=== PATIENT | male | born 1940 | race Caucasian/White ===

== ENCOUNTER 2020-01-07 17:06 | Inpatient (IN) | payer MEDICARE, OTHER ==
[2020-01-07] MEDS ORDERED: NALOXONE 0.4 MG/ML 1 ML VIAL IV PRN (17:12)
[2020-01-07] MEDS ORDERED: ACETAMINOPHEN TAB 325 MG TAB PO PRN (17:12)
--- NOTE | 2020-01-07 17:37 | ED ---
General Adult HPI - General Stated complaint: bradycardia Time Seen by Provider: 01/07/20 17:11 Source: patient, RN notes reviewed, old records reviewed - History of Present Illness Initial comments: 79-year-old male presenting as a transfer from [facility] with lightheadedness, bradycardia. Patient has history of atrial fibrillation currently on Coumadin and Toprol XL. Denies chest pain, denies palpitations. He has no reported vomiting or diarrhea. No fever. No pain complaints. Transferred for cardiology evaluation, telemetry. This was discussed with cardiology prior to transfer. Review of Systems ROS Statement: Those systems with pertinent positive or pertinent negative responses have been documented in the HPI. ROS Other: All systems not noted in ROS Statement are negative. General Exam General appearance: alert, in no apparent distress Head exam: Present: atraumatic, normocephalic Eye exam: Present: normal appearance, PERRL ENT exam: Present: normal exam Neck exam: Present: normal inspection. Absent: tenderness, meningismus Respiratory exam: Present: normal lung sounds bilaterally. Absent: respiratory distress Cardiovascular Exam: Present: normal rhythm, bradycardia GI/Abdominal exam: Present: soft. Absent: distended, tenderness, guarding Extremities exam: Present: normal inspection, normal capillary refill. Absent: pedal edema Neurological exam: Present: alert, oriented X3, CN II-XII intact. Absent: motor sensory deficit, reflexes normal Psychiatric exam: Present: normal affect, normal mood Skin exam: Present: warm, dry, intact. Absent: cyanosis, diaphoretic EKG Findings - EKG Comments: EKG Findings:: EKG: Atrial flutter, rate of 57, no ST segment elevation, QRS duration 94, QTC 358 4:1 conduction Medical Decision Making - Medical Decision Making 79-year-old male transferred for cardiology evaluation, symptomatic bradycardia, atrial flutter with slow ventricular response. EKG in the emergency department reveals atrial flutter with a 4-1 conduction, rate in the 50s. Blood pressure is stable. His electrolytes were obtained prior to transfer and these were noted to be normal. His initial troponin was negative. Laboratory testing will be repeated including all electrolytes, blood counts and troponin within the next several hours. He has been admitted to monitored bed, case discussed with the admitting physician and cardiology has been placed on consult. Critical Care Time Critical Care Time: Yes Disposition Clinical Impression: Symptomatic bradycardia, Atrial flutter Disposition: ADMITTED IP TO THIS HOSP Condition: Stable Is patient prescribed a controlled substance at d/c from ED?: No Referrals: Yuliya Ortiz DO [Primary Care Provider] - 1-2 days Decision to Admit Reason: Admit from EC Decision Date: 01/07/20 Decision Time: 17:37
[2020-01-07 20:56] LABS: Calcium 9.7 mg/dL (8.4-10.2); Potassium 4.6 mmol/L (3.5-5.1)
[2020-01-07 21:01] LABS: Basophils # (A) 0.1 k/uL (0-0.2); Basophils % (A) 1 %; Eosinophils # (A) 0.1 k/uL (0-0.7); Eosinophils % (A) 2 %; HCT 44.5 % (39.0-53.0); HGB 14.6 gm/dL (13.0-17.5); Lymphocytes # (A) 1.5 k/uL (1.0-4.8); Lymphocytes % (A) 24 %; MCH 30.4 pg (25.0-35.0); MCHC 32.9 g/dL (31.0-37.0); MCV 92.2 fL (80.0-100.0); Mean Platelet Volume 8.7; Monocytes # (A) 0.4 k/uL (0-1.0); Monocytes % (A) 6 %; Neutrophils % (A) 64 %; Platelet Count 203 k/uL (150-450); RBC 4.82 m/uL (4.30-5.90); RDW 13.1 % (11.5-15.5); WBC 6.2 k/uL (3.8-10.6)
[2020-01-07 21:15] LABS: INR 1.2 (<1.2); Prothrombin Time 12.2 sec (9.0-12.0)
[2020-01-07] MEDS ORDERED: WARFARIN 3 MG TAB PO ONE (21:45)
[2020-01-08 05:53] LABS: Basophils # (A) 0.1 k/uL (0-0.2); Basophils % (A) 1 %; Eosinophils # (A) 0.2 k/uL (0-0.7); Eosinophils % (A) 3 %; HCT 41.1 % (39.0-53.0); HGB 13.3 gm/dL (13.0-17.5); Lymphocytes % (A) 29 %; MCH 29.5 pg (25.0-35.0); MCHC 32.3 g/dL (31.0-37.0); MCV 91.5 fL (80.0-100.0); Mean Platelet Volume 9.1; Monocytes # (A) 0.5 k/uL (0-1.0); Monocytes % (A) 7 %; Neutrophils % (A) 58 %; Platelet Count 185 k/uL (150-450); RBC 4.49 m/uL (4.30-5.90); RDW 13.1 % (11.5-15.5); WBC 6.8 k/uL (3.8-10.6)
[2020-01-08 06:00] LABS: Magnesium 2.1 mg/dL (1.6-2.3)
[2020-01-08 06:02] LABS: Calcium 9.2 mg/dL (8.4-10.2); INR 1.3 (<1.2); Potassium 3.9 mmol/L (3.5-5.1); Prothrombin Time 12.8 sec (9.0-12.0)
[2020-01-08 08:47] VITALS: RESP 16
[2020-01-08] MEDS ORDERED: NITROGLYCERIN SL TABS 0.4 MG TAB SUBLINGUAL PRN (08:52)
[2020-01-08] MEDS ORDERED: FAMOTIDINE 20 MG TAB PO PRN (08:52)
[2020-01-08] MEDS ORDERED: CYCLOBENZAPRINE 5 MG TAB PO PRN (08:52)
--- NOTE | 2020-01-08 10:05 | P.HPIM ---
History of Present Illness 73-year-old male was sent in for [facility] as he presented with lightheadedness and bradycardia patient checks his pulse rate which was only in 30s at the time patient is on Toprol-XL patient. Patient does have persistent A. fib because of which patient was on Coumadin and metoprolol low-dose. Patient blood pressure apparently was extremely low as well. Patient EKG showed atrial flutter with heart rate in 50s. Patient is admitted for symptomatic bradycardia. Review of Systems REVIEW OF SYSTEMS: CONSTITUTIONAL: No fever, no malaise, no fatigue. HEENT: No recent visual problems or hearing problems. Denied any sore throat. CARDIOVASCULAR: No chest pain, orthopnea, PND, no palpitations, no syncope. PULMONARY: No shortness of breath, no cough, no hemoptysis. GASTROINTESTINAL: No diarrhea, no nausea, no vomiting, no abdominal pain. NEUROLOGICAL: No headaches, no weakness, no numbness. HEMATOLOGICAL: Denies any bleeding or petechiae. GENITOURINARY: Denies any burning micturition, frequency, or urgency. MUSCULOSKELETAL/RHEUMATOLOGICAL: Denies any joint pain, swelling, or any muscle pain. ENDOCRINE: Denies any polyuria or polydipsia. The rest of the 14-point review of systems is negative. Past Medical History Past Medical History: Atrial Fibrillation, Hyperlipidemia, Hypertension Additional Past Medical History / Comment(s): self caths History of Any Multi-Drug Resistant Organisms: None Reported Past Surgical History: Hernia Repair, Tonsillectomy Past Psychological History: No Psychological Hx Reported Smoking Status: Former smoker Past Alcohol Use History: None Reported Past Drug Use History: None Reported Medications and Allergies Home Medications Medication Instructions Recorded Confirmed Type Ascorbic Acid [Vitamin C] 500 mg PO DAILY 01/07/20 01/07/20 History Aspirin [Adult Low Dose Aspirin EC] 81 mg PO DAILY 01/07/20 01/07/20 History Candesartan Cilexetil [Atacand] 16 mg PO DAILY 01/07/20 01/07/20 History Cholecalciferol [Vitamin D3 (25 5,000 unit PO DAILY 01/07/20 01/07/20 History Mcg = 1000 Iu)] Cranberry Fruit Extract [Cranberry] 200 mg PO DAILY PRN 01/07/20 01/07/20 History Cyclobenzaprine [Flexeril] 5 mg PO DAILY PRN 01/07/20 01/07/20 History Ketorolac 0.5% Ophth Soln [Acular] 1 drops RIGHT EYE BID 01/07/20 01/07/20 History L.acidoph,Paracasei, B.lactis 1 cap PO DAILY 01/07/20 01/07/20 History [Probiotic] Loteprednol Etabonate [Inveltys] 1 drop RIGHT EYE BID 01/07/20 01/07/20 History Magnesium Gluconate [Magonate] 500 mg PO MOWEFR PRN 01/07/20 01/07/20 History Metoprolol Succinate [Toprol XL] 12.5 mg PO DAILY 01/07/20 01/07/20 History Multivitamins, Thera [Multivitamin 1 tab PO DAILY 01/07/20 01/07/20 History (formulary)] Nitrofurantoin Monohyd/M-Cryst 100 mg PO DAILY 01/07/20 01/07/20 History [Macrobid] Nitroglycerin Sl Tabs [Nitrostat] 0.4 mg SUBLINGUAL Q5M PRN 01/07/20 01/07/20 History Potassium Chloride [Klor-Con 10] 10 meq PO MOWEFR PRN 01/07/20 01/07/20 History Ranitidine HCl 150 mg PO DAILY PRN 01/07/20 01/07/20 History Rosuvastatin Calcium [Crestor] 40 mg PO DAILY 01/07/20 01/07/20 History Tobramycin 0.3% Ophth Soln [Tobrex 1 drop RIGHT EYE BID 01/07/20 01/07/20 History 0.3% Ophth Soln] Triamterene/Hydrochlorothiazid 1 cap PO MOFR PRN 01/07/20 01/07/20 History [Dyazide 37.5-25 Capsule] Ubidecarenone [Co Q-10] 100 mg PO DAILY 01/07/20 01/07/20 History Warfarin Sodium 4 mg PO SUMOTUTHSA 01/07/20 01/07/20 History Warfarin Sodium 6 mg PO WEFR 01/07/20 01/07/20 History Allergies Allergy/AdvReac Type Severity Reaction Status Date / Time ciprofloxacin [From Cipro] Allergy Unknown Verified 01/07/20 21:45 finasteride [From Proscar] Allergy Unknown Verified 01/07/20 21:45 lisinopril Allergy Unknown Verified 01/07/20 21:45 sulfamethoxazole Allergy Unknown Verified 01/07/20 21:45 [From Bactrim] trimethoprim [From Bactrim] Allergy Unknown Verified 01/07/20 21:45 Physical Exam Vitals: Vital Signs Temp Pulse Pulse Resp BP BP Pulse Ox 01/08/20 08:46 97.6 F 55 L 16 165/74 97 01/08/20 03:00 52 L 18 01/08/20 02:52 98 F 52 L 18 122/74 96 01/08/20 00:00 58 L 16 128/70 95 01/07/20 23:53 50 L 18 01/07/20 20:00 98.2 F 64 14 133/75 97 01/07/20 19:12 98.4 F 61 18 134/88 98 01/07/20 18:00 47 L 18 120/93 97 01/07/20 17:12 98.0 F 38 L 18 138/99 98 Intake and Output 01/07/20 01/08/20 01/08/20 22:59 06:59 14:59 Intake Total 240 Output Total 1300 Balance -1300 240 Intake: Oral 240 Output: Urine 1300 Other: Voiding Method Self-Catheterization Self-Catheterization Self-Catheterization # Voids 1 Weight 97.522 kg 96.2 kg PHYSICAL EXAMINATION: GENERAL: The patient is alert and oriented x3, not in any acute distress. Well developed, well nourished. HEENT: Pupils are round and equally reacting to light. EOMI. No scleral icterus. No conjunctival pallor. Normocephalic, atraumatic. No pharyngeal erythema. No thyromegaly. CARDIOVASCULAR: S1 and S2 present. No murmurs, rubs, or gallops. PULMONARY: Chest is clear to auscultation, no wheezing or crackles. ABDOMEN: Soft, nontender, nondistended, normoactive bowel sounds. No palpable organomegaly. MUSCULOSKELETAL: No joint swelling or deformity. EXTREMITIES: No cyanosis, clubbing, or pedal edema. NEUROLOGICAL: Gross neurological examination did not reveal any focal deficits. SKIN: No rashes. Results CBC & Chem 7: 01/08/20 05:36 01/08/20 05:36 Labs: Abnormal Lab Results - Last 24 Hours (Table) 09/03/1701/07/20 01/08/20 Range/Units 20:33 20:33 05:36 PT 12.2 H (9.0-12.0) sec INR 1.2 H (<1.2) BUN 23 H 21 H (9-20) mg/dL 01/08/20 Range/Units 05:36 PT 12.8 H (9.0-12.0) sec INR 1.3 H (<1.2) BUN (9-20) mg/dL Thrombosis Risk Factor Assmnt - Choose All That Apply Each Factor Represents 1 point: Swollen legs (current) Other Risk Factors: Yes Each Risk Factor Represents 3 Points: Age 75 years or older Other congenital or acquired thrombophilia - If yes, enter type in comment: No Thrombosis Risk Factor Assessment Total Risk Factor Score: 4 Thrombosis Risk Factor Assessment Level: Moderate Risk Assessment and Plan Plan: -Symptomatic bradycardia: She is presently atrial flutter with bradycardia Patient has history of atrial fibrillation and flutter anti-correlation was switched to Eliquis and patient is off Coumadin now was subtherapeutic on Coumadin cardiology will evaluate the patient and further management as per cardiology. Coding a beta brandy at this time. -Hypertension patient will be resumed on the angiotensin receptor brandy Hyperlipidemia. -Chronic low back pain
[2020-01-08] MEDS: LACTOBACILLUS ACIDOPH & BULGAR 1 EACH PACKET PO SCH (10:09)
[2020-01-08] MEDS: LOSARTAN 50 MG TAB PO SCH (10:09)
[2020-01-08] MEDS: ATORVASTATIN 80 MG TAB PO SCH (10:09)
[2020-01-08] MEDS: ASCORBIC ACID 500 MG TAB PO SCH (10:09)
[2020-01-08] MEDS: ASPIRIN 81 MG PO SCH (10:09)
[2020-01-08] MEDS: NON FORMULARY DRUG (Loteprednol Etabonate [Inveltys] 2.8 ML Drops.Susp) RIGHT EYE SCH (10:13)
[2020-01-08] MEDS: TRIAMTERENE-HCTZ 37.5-25MG 1 EACH CAP PO SCH (10:54)
[2020-01-08] MEDS: TOBRAMYCIN 0.3% OPHTH DROPS 5 ML BTL RIGHT EYE SCH (10:54)
[2020-01-08] MEDS: KETOROLAC 0.5% OPHTH DROPS 5 ML BTL RIGHT EYE SCH (10:54)
--- NOTE | 2020-01-08 11:34 | P.CRDCN ---
History of Present Illness History of present illness: This is Jaelyn Justice PA-C dictating a consult on this patient The patient was interviewed and examined by me as well as by Dr. Schwartz Case discussed with Dr. Schwartz and he agrees with the plan of care HPI Patient is a 79-year-old male with a history significant for paroxysmal atrial fibrillation, paroxysmal atrial flutter, obstructive sleep apnea, hypertension who was transferred from [facility] for cardiac evaluation. He follows with Dr. Schwartz. He is on low-dose metoprolol 12.5 mg daily for atrial fibrillation. He has been feeling fatigued and had an episode of presyncope at home and his urged him to go to the emergency department for evaluation. He did not pass out. He denies any chest pain or shortness of breath. He was found to be in atrial flutter with a rate of 38. His potassium was 4.3. He was transferred to [facility] for further evaluation. EKG here shows atrial flutter with rate 57. Upon arrival here his blood pressure was 138/99. Labs again show normal potassium 4.6, creatinine 1.0 to, TSH normal at 1.64. His INR was 1.2. He states he did hold his Coumadin for one day for cataract surgery recently. He also admits that he sometimes takes vitamin K supplements" for his immune system". He has had trouble with fluctuating INRs and his Coumadin has been increased a few times. His metoprolol has been on hold and his heart rates have been running in the high 50s. He remains in atrial flutter. Patient seen and examined sitting up in the chair. He denies any further dizziness or presyncope. He does admit to some intermittent dyspnea on exertion. Denies any chest discomfort. No palpitations. ROS: No fevers, chills or rigors, no cough, phlegm or expectoration, no nausea, vomiting or diarrhea, no hematuria, dysuria, Positive for back and knee pain no strokes or seizures, no skin lesions. EXAMINATION: Patient is afebrile, pulse in the 50s, respirations 16, blood pressure 165/74, oxygen saturation 97% on room air Patient seen and examined sitting up in the chair, in no acute distress Lungs are clear to auscultation bilaterally Heart is irregularly irregular, no audible murmurs No JVD Trace lower extremity edema Abdomen soft and nontender to palpation REVIEW OF LABS, ECG & MEDICAL DATA WBC 6.8, hemoglobin 13.3, platelets 185, INR 1.3, potassium 3.9, BUN 21, creatinine 0.99, magnesium 2.1 Troponin negative TSH within normal limits IMPRESSION / ASSESSMENT: #1 symptomatic atrial flutter with slow ventricular response, Toprol currently on hold, heart rates currently in the 50s, symptoms have resolved #2 paroxysmal atrial fibrillation #3 hypertension #4 obstructive sleep apnea, not using CPAP mask #5 subtherapeutic INR PLAN: Resume home antihypertensive medications Continue holding the metoprolol Monitor telemetry In view of his fluctuating INRs, would recommend novel oral anticoagulant, will start eliquis 5 mg twice a day Discussed the importance of CPAP compliance We'll obtain his records from the office including an echocardiogram In the future would recommend atrial flutter ablation, Dr. Schwartz will discuss this with the patient Past Medical History Past Medical History: Atrial Fibrillation, Hyperlipidemia, Hypertension Additional Past Medical History / Comment(s): self caths History of Any Multi-Drug Resistant Organisms: None Reported Past Surgical History: Hernia Repair, Tonsillectomy Past Psychological History: No Psychological Hx Reported Smoking Status: Former smoker Past Alcohol Use History: None Reported Past Drug Use History: None Reported Medications and Allergies Home Medications Medication Instructions Recorded Confirmed Type Ascorbic Acid [Vitamin C] 500 mg PO DAILY 01/07/20 01/07/20 History Aspirin [Adult Low Dose Aspirin EC] 81 mg PO DAILY 01/07/20 01/07/20 History Candesartan Cilexetil [Atacand] 16 mg PO DAILY 01/07/20 01/07/20 History Cholecalciferol [Vitamin D3 (25 5,000 unit PO DAILY 01/07/20 01/07/20 History Mcg = 1000 Iu)] Cranberry Fruit Extract [Cranberry] 200 mg PO DAILY PRN 01/07/20 01/07/20 History Cyclobenzaprine [Flexeril] 5 mg PO DAILY PRN 01/07/20 01/07/20 History Ketorolac 0.5% Ophth Soln [Acular] 1 drops RIGHT EYE BID 01/07/20 01/07/20 Hist ory L.acidoph,Paracasei, B.lactis 1 cap PO DAILY 01/07/20 01/07/20 History [Probiotic] Loteprednol Etabonate [Inveltys] 1 drop RIGHT EYE BID 01/07/20 01/07/20 History Magnesium Gluconate [Magonate] 500 mg PO MOWEFR PRN 01/07/20 01/07/20 History Metoprolol Succinate [Toprol XL] 12.5 mg PO DAILY 01/07/20 01/07/20 History Multivitamins, Thera [Multivitamin 1 tab PO DAILY 01/07/20 01/07/20 History (formulary)] Nitrofurantoin Monohyd/M-Cryst 100 mg PO DAILY 01/07/20 01/07/20 History [Macrobid] Nitroglycerin Sl Tabs [Nitrostat] 0.4 mg SUBLINGUAL Q5M PRN 01/07/20 01/07/20 History Potassium Chloride [Klor-Con 10] 10 meq PO MOWEFR PRN 01/07/20 01/07/20 History Ranitidine HCl 150 mg PO DAILY PRN 01/07/20 01/07/20 History Rosuvastatin Calcium [Crestor] 40 mg PO DAILY 01/07/20 01/07/20 History Tobramycin 0.3% Ophth Soln [Tobrex 1 drop RIGHT EYE BID 01/07/20 01/07/20 History 0.3% Ophth Soln] Triamterene/Hydrochlorothiazid 1 cap PO MOFR PRN 01/07/20 01/07/20 History [Dyazide 37.5-25 Capsule] Ubidecarenone [Co Q-10] 100 mg PO DAILY 01/07/20 01/07/20 History Warfarin Sodium 4 mg PO SUMOTUTHSA 01/07/20 01/07/20 History Warfarin Sodium 6 mg PO WEFR 01/07/20 01/07/20 History Allergies Allergy/AdvReac Type Severity Reaction Status Date / Time ciprofloxacin [From Cipro] Allergy Unknown Verified 01/07/20 21:45 finasteride [From Proscar] Allergy Unknown Verified 01/07/20 21:45 lisinopril Allergy Unknown Verified 01/07/20 21:45 sulfamethoxazole Allergy Unknown Verified 01/07/20 21:45 [From Bactrim] trimethoprim [From Bactrim] Allergy Unknown Verified 01/07/20 21:45 Physical Exam Vitals: Vital Signs Temp Pulse Pulse Resp BP BP Pulse Ox 01/08/20 08:46 97.6 F 55 L 16 165/74 97 01/08/20 03:00 52 L 18 01/08/20 02:52 98 F 52 L 18 122/74 96 01/08/20 00:00 58 L 16 128/70 95 01/07/20 23:53 50 L 18 01/07/20 20:00 98.2 F 64 14 133/75 97 01/07/20 19:12 98.4 F 61 18 134/88 98 01/07/20 18:00 47 L 18 120/93 97 01/07/20 17:12 98.0 F 38 L 18 138/99 98 Intake and Output 01/07/20 01/08/20 01/08/20 22:59 06:59 14:59 Intake Total 240 Output Total 1300 Balance -1300 240 Intake: Oral 240 Output: Urine 1300 Other: Voiding Method Self-Catheterization Self-Catheterization Self-Catheterization # Voids 1 Weight 97.522 kg 96.2 kg Results 01/08/20 05:36 01/08/20 05:36 Cardiac Enzymes 01/07/20 Range/Units 20:33 Troponin I <0.012 (0.000-0.034) ng/mL Coagulation 01/07/20 01/08/20 Range/Units 20:33 05:36 PT 12.2 H 12.8 H (9.0-12.0) sec CBC 01/07/20 01/08/20 Range/Units 20:33 05:36 WBC 6.2 6.8 (3.8-10.6) k/uL RBC 4.82 4.49 (4.30-5.90) m/uL Hgb 14.6 13.3 (13.0-17.5) gm/dL Hct 44.5 41.1 (39.0-53.0) % Plt Count 203 185 (150-450) k/uL Comprehensive Metabolic Panel 01/07/20 01/08/20 Range/Units 20:33 05:36 Sodium 140 138 (137-145) mmol/L Potassium 4.6 3.9 (3.5-5.1) mmol/L Chloride 105 106 (98-107) mmol/L Carbon Dioxide 27 27 (22-30) mmol/L BUN 23 H 21 H (9-20) mg/dL Creatinine 1.02 0.99 (0.66-1.25) mg/dL Glucose 88 93 (74-99) mg/dL Calcium 9.7 9.2 (8.4-10.2) mg/dL Current Medications Generic Name Dose Route Start Last Admin Trade Name Freq PRN Reason Stop Dose Admin Acetaminophen 650 mg 01/07/20 17:12 Acetaminophen Tab 325 Mg Tab PO Q6HR PRN Mild Pain or Fever > 100.5 Apixaban 5 mg 01/08/20 21:00 Apixaban 5 Mg Tab PO BID ELIDA Ascorbic Acid 500 mg 01/08/20 09:45 01/08/20 10:09 Ascorbic Acid 500 Mg Tab PO 500 mg DAILY ELIDA Administration Aspirin 81 mg 01/08/20 09:45 01/08/20 10:09 Aspirin 81 Mg PO 81 mg DAILY ELIDA Administration Atorvastatin Calcium 80 mg 01/08/20 09:00 01/08/20 10:09 Atorvastatin 80 Mg Tab PO 80 mg DAILY ELIDA Administration Cyclobenzaprine HCl 5 mg 01/08/20 08:52 Cyclobenzaprine 5 Mg Tab PO DAILY PRN Muscle Pain Famotidine 20 mg 01/08/20 08:52 Famotidine 20 Mg Tab PO DAILY PRN GI Upset Ketorolac Tromethamine 1 drops 01/08/20 09:45 01/08/20 10:54 Ketorolac 0.5% Ophth Drops 5 Ml Btl RIGHT EYE 1 drops BID ELIDA Administration Lactobacillus Acidoph/Bulgaricus 1 each 01/08/20 09:45 01/08/20 10:09 Lactobacillus Acidoph & Bulgar 1 Each Packet PO 1 each DAILY ELIDA Administration Losartan Potassium 100 mg 01/08/20 09:45 01/08/20 10:09 Losartan 50 Mg Tab PO 100 mg DAILY ELIDA Administration Naloxone HCl 0.2 mg 01/07/20 17:12 Naloxone 0.4 Mg/Ml 1 Ml Vial IV Q2M PRN Opioid Reversal Nitroglycerin 0.4 mg 01/08/20 08:52 Nitroglycerin Sl Tabs 0.4 Mg Tab SUBLINGUAL Q5M PRN Chest Pain Non-Formulary Medication 1 drop 01/08/20 09:45 01/08/20 10:13 Loteprednol Etabonate [Inveltys] RIGHT EYE Not Given BID [facility] Tobramycin 1 drops 01/08/20 09:45 01/08/20 10:54 Tobramycin 0.3% Ophth Drops 5 Ml Btl RIGHT EYE 1 drops BID ELIDA Administration Triamterene/HCTZ 1 each 01/08/20 09:45 01/08/20 10:54 Triamterene-Hctz 37.5-25mg 1 Each Cap PO 1 each DAILY ELIDA Administration Intake and Output 01/07/20 01/08/20 01/08/20 22:59 06:59 14:59 Intake Total 240 Output Total 1300 Balance -1300 240 Intake: Oral 240 Output: Urine 1300 Other: Voiding Method Self-Catheterization Self-Catheterization Self-Catheterization # Voids 1 Weight 97.522 kg 96.2 kg 01/08/20 05:36 01/08/20 05:36
[2020-01-08] MEDS ORDERED: WARFARIN 2 MG TAB PO SCH (18:00)
[2020-01-08] MEDS: APIXABAN 5 MG TAB PO SCH (20:41)
[2020-01-09] MEDS: KETOROLAC 0.5% OPHTH DROPS 5 ML BTL RIGHT EYE SCH ×2 (00:13→08:02)
[2020-01-09] MEDS: TOBRAMYCIN 0.3% OPHTH DROPS 5 ML BTL RIGHT EYE SCH ×2 (00:14→08:02)
[2020-01-09] MEDS: NON FORMULARY DRUG (Loteprednol Etabonate [Inveltys] 2.8 ML Drops.Susp) RIGHT EYE SCH ×2 (00:14→08:02)
[2020-01-09 08:00] VITALS: BP 175/81; PULSE 63; TEMP 98.3
[2020-01-09] MEDS: TRIAMTERENE-HCTZ 37.5-25MG 1 EACH CAP PO SCH (08:01)
[2020-01-09] MEDS: APIXABAN 5 MG TAB PO SCH (08:01)
[2020-01-09] MEDS: ASCORBIC ACID 500 MG TAB PO SCH (08:01)
[2020-01-09] MEDS: LOSARTAN 50 MG TAB PO SCH (08:01)
[2020-01-09] MEDS: ASPIRIN 81 MG PO SCH (08:02)
[2020-01-09] MEDS: ATORVASTATIN 80 MG TAB PO SCH (08:02)
[2020-01-09] MEDS: LACTOBACILLUS ACIDOPH & BULGAR 1 EACH PACKET PO SCH (08:02)
--- NOTE | 2020-01-09 08:07 | P.DS ---
Providers Date of admission: 01/07/20 17:13 Attending physician: Lora Treadwell Consults: 01/07/20 17:13 Consult Physician Routine Consulting Provider: Iván Schwartz Consult Reason/Comments: Atrial flutter with slow ventricular response, symptomatic bradycardia Do you want consulting provider notified?: Already Contacted Primary care physician: Yuliya [facility] Course: Consider this is a progress note as patient was not discharged on this day 73-year-old male was sent in [facility] as he presented with lightheadedness and bradycardia patient checks his pulse rate which was only in 30s at the time patient is on Toprol-XL patient. Patient does have persistent A. fib because of which patient was on Coumadin and metoprolol low-dose. Patient blood pressure apparently was extremely low as well. Patient EKG showed atrial flutter with heart rate in 50s. Patient is admitted for symptomatic bradycardia. 01/09/2020 Patient remains in atrial flutter with a heart rate is in 50s. Toprol-XL was discontinued. Foil Spinner gave him an option of aspiration but patient is not willing to get the procedure done. If her cardiac clearance and patient will be discharged without the Toprol-XL and patient will be given prescription for Eliquis. Rest of his home medications will be continued and I discussed with the patient regarding nitrofurantoin And may not be beneficial continue this medication, asked him to discuss continuation of this medication with his PCP. Patient doesn't have any symptoms at this time doing well. PHYSICAL EXAMINATION: GENERAL: The patient is alert and oriented x3, not in any acute distress. Well developed, well nourished. HEENT: Pupils are round and equally reacting to light. EOMI. No scleral icterus. No conjunctival pallor. Normocephalic, atraumatic. No pharyngeal erythema. No thyromegaly. CARDIOVASCULAR: S1 and S2 present. No murmurs, rubs, or gallops. PULMONARY: Chest is clear to auscultation, no wheezing or crackles. ABDOMEN: Soft, nontender, nondistended, normoactive bowel sounds. No palpable organomegaly. MUSCULOSKELETAL: No joint swelling or deformity. EXTREMITIES: No cyanosis, clubbing, or pedal edema. NEUROLOGICAL: Gross neurological examination did not reveal any focal deficits. SKIN: No rashes. Assessment and Plan Plan: -Symptomatic bradycardia: She is presently atrial flutter with bradycardia Patient has history of atrial fibrillation and flutter patient is switched Eliquis send a beta brandy was discontinued and further management as mentioned above if cleared by cardiology patient will be discharged today . -Hypertension Hyperlipidemia. -Chronic low back pain Patient Condition at Discharge: Stable Plan - Discharge Summary Discharge Rx Participant: No New Discharge Prescriptions: New Apixaban [Eliquis] 5 mg PO BID #60 tab Continue Potassium Chloride [Klor-Con 10] 10 meq PO MOWEFR PRN PRN Reason: LEG CRAMPS Magnesium Gluconate [Magonate] 500 mg PO MOWEFR PRN PRN Reason: LEG CRAMPS L.acidoph,Paracasei, B.lactis [Probiotic] 1 cap PO DAILY Cyclobenzaprine [Flexeril] 5 mg PO DAILY PRN PRN Reason: Muscle Pain Cranberry Fruit Extract [Cranberry] 200 mg PO DAILY PRN PRN Reason: UTI Ubidecarenone [Co Q-10] 100 mg PO DAILY Nitrofurantoin Monohyd/M-Cryst [Macrobid] 100 mg PO DAILY Multivitamins, Thera [Multivitamin (formulary)] 1 tab PO DAILY Cholecalciferol [Vitamin D3 (25 Mcg = 1000 Iu)] 5,000 unit PO DAILY Ascorbic Acid [Vitamin C] 500 mg PO DAILY Triamterene/Hydrochlorothiazid [Dyazide 37.5-25 Capsule] 1 cap PO MOFR PRN PRN Reason: Edema Aspirin [Adult Low Dose Aspirin EC] 81 mg PO DAILY Rosuvastatin Calcium [Crestor] 40 mg PO DAILY Ranitidine HCl 150 mg PO DAILY PRN PRN Reason: Gi Upset Nitroglycerin Sl Tabs [Nitrostat] 0.4 mg SUBLINGUAL Q5M PRN PRN Reason: Chest Pain Metoprolol Succinate [Toprol XL] 12.5 mg PO DAILY Candesartan Cilexetil [Atacand] 16 mg PO DAILY Tobramycin 0.3% Ophth Soln [Tobrex 0.3% Ophth Soln] 1 drop RIGHT EYE BID Loteprednol Etabonate [Inveltys] 1 drop RIGHT EYE BID Ketorolac 0.5% Ophth Soln [Acular 0.5%] 1 drops RIGHT EYE BID Discontinued Warfarin Sodium 6 mg PO WEFR Warfarin Sodium 4 mg PO [facility] Discharge Medication List Ascorbic Acid [Vitamin C] 500 mg PO DAILY 01/07/20 [History] Aspirin [Adult Low Dose Aspirin EC] 81 mg PO DAILY 01/07/20 [History] Candesartan Cilexetil [Atacand] 16 mg PO DAILY 01/07/20 [History] Cholecalciferol [Vitamin D3 (25 Mcg = 1000 Iu)] 5,000 unit PO DAILY 01/07/20 [History] Cranberry Fruit Extract [Cranberry] 200 mg PO DAILY PRN 01/07/20 [History] Cyclobenzaprine [Flexeril] 5 mg PO DAILY PRN 01/07/20 [History] Ketorolac 0.5% Ophth Soln [Acular 0.5%] 1 drops RIGHT EYE BID 01/07/20 [History] L.acidoph,Paracasei, B.lactis [Probiotic] 1 cap PO DAILY 01/07/20 [History] Loteprednol Etabonate [Inveltys] 1 drop RIGHT EYE BID 01/07/20 [History] Magnesium Gluconate [Magonate] 500 mg PO MOWEFR PRN 01/07/20 [History] Metoprolol Succinate [Toprol XL] 12.5 mg PO DAILY 01/07/20 [History] Multivitamins, Thera [Multivitamin (formulary)] 1 tab PO DAILY 01/07/20 [History] Nitrofurantoin Monohyd/M-Cryst [Macrobid] 100 mg PO DAILY 01/07/20 [History] Nitroglycerin Sl Tabs [Nitrostat] 0.4 mg SUBLINGUAL Q5M PRN 01/07/20 [History] Potassium Chloride [Klor-Con 10] 10 meq PO MOWEFR PRN 01/07/20 [History] Ranitidine HCl 150 mg PO DAILY PRN 01/07/20 [History] Rosuvastatin Calcium [Crestor] 40 mg PO DAILY 01/07/20 [History] Tobramycin 0.3% Ophth Soln [Tobrex 0.3% Ophth Soln] 1 drop RIGHT EYE BID 01/07/20 [History] Triamterene/Hydrochlorothiazid [Dyazide 37.5-25 Capsule] 1 cap PO MOFR PRN 01/07/20 [History] Ubidecarenone [Co Q-10] 100 mg PO DAILY 01/07/20 [History] Apixaban [Eliquis] 5 mg PO BID #60 tab 01/09/20 [Rx] Follow up Appointment(s)/Referral(s): Iván Schwartz MD [STAFF PHYSICIAN] - 1 Week Yuliya Ortiz DO [Primary Care Provider] - 3 Days Activity/Diet/Wound Care/Special Instructions: pt has a script for [facility] in [facility] to be picked up at time of d/c. pt has a $33.00 co-pay Discharge Disposition: HOME SELF-CARE
--- NOTE | 2020-01-09 09:18 | US ---
EXAMINATION TYPE: US venous doppler duplex LE DATE OF EXAM: 01/09/2020 7:47 AM COMPARISON: NONE CLINICAL HISTORY: b/l swelling. Chronic mild lower leg swelling per patient and is on Coumadin x 20 y ears for A FIB SIDE PERFORMED: Bilateral TECHNIQUE: The lower extremity deep venous system is examined utilizing real time linear array sonog rogers with graded compression, doppler sonography and color-flow sonography. VESSELS IMAGED: Common Femoral Vein Deep Femoral Vein Greater Saphenous Vein * Femoral Vein Popliteal Vein Small Saphenous Vein * Proximal Calf Veins (* superficial vessels) Right Leg: Negative for DVT Left Leg: Negative for DVT IMPRESSION: Grayscale, color doppler, spectral doppler imaging performed of the deep veins of the lo wer extremities. There is normal flow, compressibility, vascular waveforms.
--- NOTE | 2020-01-09 11:56 | P.PN ---
Subjective Progress Note Date: 01/09/20 The patient was interviewed and examined sitting up comfortably in the recliner chair. He had already been seen and evaluated by Dr. Schwartz. He states he is feeling much better now that his heart rate has improved off of his metoprolol. He states he and Dr. Schwartz had an extensive conversation in regards to an atrial flutter ablation, which will be scheduled after an outpatient follow-up visit. He denies any chest pain or chest pressure, no dyspnea, orthopnea, palpitations, dizziness, or lightheadedness. GENERAL: This is a 79-year-old male in no apparent distress at the time of my examination. HEENT: Head is atraumatic, normocephalic. Pupils are equal, round. Sclerae anicteric. Conjunctivae are clear. Mucous membranes of the mouth are moist. Neck is supple. There is no jugular venous distention. No carotid bruit is heard. LUNGS: Clear to auscultation no wheezes, rales or rhonchi. No chest wall tenderness is noted on palpation or with deep breathing. HEART: Irregular rate and rhythm without murmurs, rubs or gallops. S1 and S2 heard. ABDOMEN: Soft, nontender. Bowel sounds are heard. No organomegaly noted. EXTREMITIES: No evidence of peripheral edema and no calf tenderness noted. VASCULAR: Radial and dorsalis pedis pulses palpated, no evidence of clubbing. NEUROLOGIC: Patient is awake, alert and oriented x3. VITALS: Blood pressures 136/78, 146/90, 175/81; heart rate 60, temperature 98.3, respiratory rate 16 TELEMETRY: Atrial flutter with heart rates in the 50s to 60s LABS: No new laboratory data IMPRESSION: #1 atrial flutter with slow ventricular response, he will undergo atrial flutter ablation in the future #2 paroxysmal atrial fibrillation #3 sick sinus syndrome, avoid AV simone blocking agents #4 hypertension #5 obstructive sleep apnea, noncompliant with CPAP #6 subtherapeutic INR, transition to novel anticoagulation PLAN: Patient will start Eliquis 5 mg twice daily intake consistently over the next 6- 8 weeks, or he will then undergo atrial flutter ablation with Dr. Schwartz. We also discussed the importance of compliance with his CPAP therapy. He denies a ny additional questions or concerns. Patient is cleared to be discharged for outpatient follow-up. Objective - Vital Signs Vital signs: Vital Signs Temp 98.3 F 01/09/20 07:58 Pulse 63 01/09/20 07:58 Resp 16 01/09/20 07:58 BP 175/81 01/09/20 07:58 Pulse Ox 97 01/09/20 07:58 Intake & Output 01/08/20 01/09/20 01/09/20 18:59 06:59 18:59 Intake Total 720 240 Output Total 900 Balance -180 240 Weight 97.4 kg Intake: Oral 720 240 Output: Urine 900 Other: Voiding Method Self-Catheterization Self-Catheterization Self-Catheterization # Voids 1 1 - Labs CBC & Chem 7: 01/08/20 05:36 01/08/20 05:36
[2020-01-12] MEDS ORDERED: WARFARIN 3 MG TAB PO SCH (18:00)
== END 2020-01-09 11:01 | disposition home or self-care (01) | DRG 310 ==
LOC: EC 17:06 → 3SCARD 17:13
PROVIDERS: ADMIT Hospitalist; ATTEND Hospitalist
DX: I48.19 Other persistent atrial fibrillation (principal); E78.5 Hyperlipidemia, unspecified; G47.33 Obstructive sleep apnea (adult) (pediatric); G89.29 Other chronic pain; I10 Essential (primary) hypertension; I48.92 Unspecified atrial flutter; I49.5 Sick sinus syndrome; R79.1 Abnormal coagulation profile; Z79.01 Long term (current) use of anticoagulants; Z79.82 Long term (current) use of aspirin; Z79.899 Other long term (current) drug therapy; Z87.891 Personal history of nicotine dependence; Z91.19 Patient's noncompliance with other medical treatment and regimen
CPT/HCPCS: 80048; 83735; 84443; 84484; 85025; 85610; 93970; 99285

== ENCOUNTER 2020-11-02 10:25 | Day surgery (SDC) | payer MEDICARE, OTHER ==
[2020-10-31 12:28] VITALS: BMI 29.2
[~2020-11-02 10:25] MED LIST: ALPRAZolam 0.25 MG TAB PO PRN; ALPRAZolam 0.5 MG TAB PO PRN; ASPIRIN 325 MG TAB PO STA; ATORVASTATIN 80 MG TAB PO STA; NITROGLYCERIN SL TABS 0.4 MG TAB SUBLINGUAL PRN; SODIUM CHLORIDE 0.9% 1,000 ML in EMPTY BAG 1 BAG IV ONE
[2020-11-02 11:17] VITALS: RESP 16; TEMP 98.4
[2020-11-02 11:17] LABS: Basophils # (A) 0.1 k/uL (0-0.2); Basophils % (A) 1 %; Eosinophils # (A) 0.2 k/uL (0-0.7); Eosinophils % (A) 3 %; HCT 43.6 % (39.0-53.0); HGB 14.4 gm/dL (13.0-17.5); Lymphocytes # (A) 1.4 k/uL (1.0-4.8); Lymphocytes % (A) 21 %; MCH 29.6 pg (25.0-35.0); MCHC 33.2 g/dL (31.0-37.0); MCV 89.4 fL (80.0-100.0); Mean Platelet Volume 8.4; Monocytes # (A) 0.5 k/uL (0-1.0); Monocytes % (A) 7 %; Neutrophils # (A) 4.2 k/uL (1.3-7.7); Neutrophils % (A) 65 %; Platelet Count 209 k/uL (150-450); RBC 4.87 m/uL (4.30-5.90); RDW 13.6 % (11.5-15.5); WBC 6.5 k/uL (3.8-10.6)
[2020-11-02 11:27] LABS: African American GFR (CKD) >90 (>60 ml/min/1.73 sqM); Anion Gap 8 mmol/L; Blood Urea Nitrogen 19 mg/dL (9-20); Calcium 9.9 mg/dL (8.4-10.2); Carbon Dioxide 25 mmol/L (22-30); Chloride 106 mmol/L (98-107); Glucose 109 mg/dL (74-99); Non-African American GFR(CKD) 85 (>60 ml/min/1.73 sqM); Potassium 4.5 mmol/L (3.5-5.1); Sodium 139 mmol/L (137-145)
[2020-11-02] MEDS ORDERED: LIDOCAINE 1% INJ 10MG/ML (20 ML MDV) ONE (12:20)
[2020-11-02] MEDS ORDERED: VERAPAMIL 2.5 MG/ML 2 ML AMP ONE (12:20)
[2020-11-02] MEDS ORDERED: HEPARIN SODIUM 1,000 UN/ML (10ML VL) ONE (12:21)
[2020-11-02] MEDS ORDERED: fentaNYL (PF) 50 MCG/ML 2 ML AMP ONE (12:21)
[2020-11-02] MEDS ORDERED: fentaNYL (PF) 50 MCG/ML 2 ML AMP IV ONE (12:30)
[2020-11-02] MEDS ORDERED: LIDOCAINE 1% INJ 10MG/ML (20 ML MDV) SQ ONE (12:30)
[2020-11-02] MEDS ORDERED: MIDAZOLAM 2 MG/2 ML VIAL IV ONE (12:30)
[2020-11-02] MEDS ORDERED: VERAPAMIL SYRINGE (5 MG/10 ML) INTRAARTER ONE (12:33)
[2020-11-02] MEDS ORDERED: IOPAMIDOL-370 125ML BTL INJ ONE (12:51)
[2020-11-02] MEDS ORDERED: RX INFO: IV CONTRAST WAS GIVEN 1 EACH MISC MISCELLANE PRN (13:47)
--- NOTE | 2020-11-02 15:00 | P.GSCN ---
History of Present Illness Consult date: 11/02/20 Reason for Consult: Coronary artery disease with left main disease. Requesting physician: Kashif Trent History of present illness: This is a 80-year-old gentleman who follows on an outpatient basis with Dr. Yuliya Ortiz for his primary care needs. The patient also follows with Dr. Schwartz from cardiology for his cardiology care. 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 Briefly, the patient has been complaining of episodes of shortness of breath and intermittent chest pain. Subsequently underwent a stress test which was mildly abnormal and also had an abnormal calcium scoring with preserved LV systolic function. Due to the above mentioned findings he was recommended to undergo a heart catheterization in which he underwent today demonstrating a 75% stenosis to his left main coronary artery, and 80% stenosis to a circumflex coronary artery, a 20% stenosis to his proximal left anterior descending coronary artery, a 30% stenosis to his mid left anterior descending coronary artery and a 10-20% stenosis to his right coronary artery. Due to the findings on the cardiac catheterization a consult was placed to Dr. Constantine Clarke from cardiothoracic surgery for further evaluation and treatment recommendations including myocardial revascularization surgery. Review of Systems A 14 point review of systems was completed and was negative except as mentioned in the HPI. Past Medical History Past Medical History: Atrial Fibrillation, Atrial Flutter, Chest Pain / Angina, Hyperlipidemia, Hypertension, Osteoarthritis (OA), Prostate Disorder, Sleep Apnea/CPAP/BIPAP Additional Past Medical History / Comment(s): self caths since 2009. States DrSocorro's don't know why he can't urinate. Had Guillan-[place]' in mid 1970's, [facility] asional SOB, 2019 Coronary artery calcium test-2800 score History of Any Multi-Drug Resistant Organisms: None Reported Past Surgical History: Hernia Repair (Umbilical), Tonsillectomy Additional Past Surgical History / Comment(s): Surgery for ureteral strictures. Colonoscopy with polyps removed, bilateral cataract surgery Past Anesthesia/Blood Transfusion Reactions: No Reported Reaction Past Psychological History: No Psychological Hx Reported Smoking Status: Former smoker (Quit smoking 25 years ago) Past Alcohol Use History: None Reported Additional Past Alcohol Use History / Comment(s): Quit smoking 27years ago. Past Drug Use History: None Reported - Past Family History Mother Family Medical History: Cancer Additional Family Medical History / Comment(s): ? colon cancer. History of hydrocephaly with shunt placement. at age 97. Father Family Medical History: No Reported History Medications and Allergies Home Medications Medication Instructions Recorded Confirmed Type Ascorbic Acid [Vitamin C] 500 mg PO HS 01/07/20 11/02/20 History Aspirin [Adult Low Dose Aspirin EC] 81 mg PO HS 01/07/20 11/02/20 History Candesartan Cilexetil [Atacand] 16 mg PO DAILY 01/07/20 11/02/20 History Cholecalciferol [Vitamin D3 (25 5,000 unit PO HS 01/07/20 11/02/20 History Mcg = 1000 Iu)] Cyclobenzaprine [Flexeril] 5 mg PO HS PRN 01/07/20 10/31/20 History L.acidoph,Paracasei, B.lactis 1 cap PO DAILY 01/07/20 11/02/20 History [Probiotic] Magnesium Gluconate [Magonate] 500 mg PO MOWEFR PRN 01/07/20 11/02/20 History Multivitamins, Thera [Multivitamin 1 tab PO HS 01/07/20 11/02/20 History (formulary)] Nitrofurantoin Monohyd/M-Cryst 100 mg PO DAILY 01/07/20 11/02/20 History [Macrobid] Nitroglycerin Sl Tabs [Nitrostat] 0.4 mg SUBLINGUAL Q5M PRN 01/07/20 10/31/20 History Potassium Chloride [Klor-Con 10] 10 meq PO MOWEFR PRN 01/07/20 11/02/20 History Rosuvastatin Calcium [Crestor] 40 mg PO HS 01/07/20 11/02/20 History Ubidecarenone [Co Q-10] 100 mg PO HS 01/07/20 11/02/20 History Apixaban [Eliquis] 5 mg PO BID #60 tab 01/09/20 10/31/20 Rx Ivermectin 3 mg PO Q7D 10/31/20 11/02/20 History [place]-3/Dha/Epa/Fish Oil [Fish Oil 1 each PO HS 10/31/20 11/02/20 History 500 mg Softgel] Quercetin 500 mg PO Q7D 10/31/20 11/02/20 History Resveratrol 100 mg PO HS 10/31/20 11/02/20 History Allergies Allergy/AdvReac Type Severity Reaction Status Date / Time ciprofloxacin [From Cipro] Allergy muscle Verified 10/31/20 12:43 cramps finasteride [From Proscar] Allergy Unknown Verified 10/31/20 11:56 lisinopril Allergy Swelling Verified 10/31/20 11:56 sulfamethoxazole Allergy Unknown Verified 10/31/20 11:56 [From Bactrim] trimethoprim [From Bactrim] Allergy Unknown Verified 10/31/20 11:56 metoprolol AdvReac Unknown Verified 11/02/20 11:14 Surgical - Exam Vital Signs Temp Pulse Resp BP Pulse Ox 98.4 F 57 L 16 138/66 96 11/02/20 11:00 11/02/20 11:00 11/02/20 11:00 11/02/20 11:00 11/02/20 11:00 CONSTITUTIONAL: Sitting up in bed in the extended stay unit, appears comfortable, cooperative, no apparent acute distress. HEENT: Neck is supple, no JVD, no lymphadenopathy. Normocephalic. No scleral icterus. RESPIRATORY: Lungs sounds essentially clear throughout. Respirations are symmetrical and nonlabored. Currently on room air with oxygen saturations 96%. CARDIOVASCULAR: Irregular rhythm and controlled rate. S1 and S2 present, negative for S3, gallop or murmur. Palpable peripheral pulses bilaterally. No calf pain or tenderness noted. Bedside telemetry showing atrial flutter heart rate 79 BPM. GASTROINTESTINAL: Abdomen soft, nontender, nondistended. Active bowel sounds present 4 quadrants. Tolerating diet. Passing flatus. No guarding or rigidity. No organomegaly appreciated. GENITOURINARY: Straight cath's self. INTEGUMENTARY: Skin is warm and dry with no evidence of clubbing or cyanosis. NEUROLOGIC: Cranial nerves II through XII intact. No focal deficits. MUSKULOSKELETAL: Able to move all extremities, strength equal bilaterally. PSYCHIATRIC: Alert and oriented to person place and time, appropriate affect, intact judgment and insight. - General well developed, well nourished, no distress, no pain, obese - Eyes PERRL, normal ocular movement - ENT normal pinna, normal nares, normal mucosa, no congestion - Neck no masses, no bruits, trachea midline, no venous distension - Psychiatric oriented to time, oriented to person, oriented to place, speech is normal, memory intact Results - Labs 11/02/20 10:55 11/02/20 10:55 Abnormal Lab Results - Last 24 Hours (Table) 11/02/20 Range/Units 10:55 Glucose 109 H (74-99) mg/dL Diabetes panel 11/02/20 Range/Units 10:55 Sodium 139 (137-145) mmol/L Potassium 4.5 (3.5-5.1) mmol/L Chloride 106 (98-107) mmol/L Carbon Dioxide 25 (22-30) mmol/L BUN 19 (9-20) mg/dL Creatinine 0.80 (0.66-1.25) mg/dL Glucose 109 H (74-99) mg/dL Calcium 9.9 (8.4-10.2) mg/dL Calcium panel 11/02/20 Range/Units 10:55 Calcium 9.9 (8.4-10.2) mg/dL Pituitary panel 11/02/20 Range/Units 10:55 Sodium 139 (137-145) mmol/L Potassium 4.5 (3.5-5.1) mmol/L Chloride 106 (98-107) mmol/L Carbon Dioxide 25 (22-30) mmol/L BUN 19 (9-20) mg/dL Creatinine 0.80 (0.66-1.25) mg/dL Glucose 109 H (74-99) mg/dL Calcium 9.9 (8.4-10.2) mg/dL Adrenal panel 11/02/20 Range/Units 10:55 Sodium 139 (137-145) mmol/L Potassium 4.5 (3.5-5.1) mmol/L Chloride 106 (98-107) mmol/L Carbon Dioxide 25 (22-30) mmol/L BUN 19 (9-20) mg/dL Creatinine 0.80 (0.66-1.25) mg/dL Glucose 109 H (74-99) mg/dL Calcium 9.9 (8.4-10.2) mg/dL Assessment and Plan Assessment: 1. Coronary artery disease with left main disease 2. Hypertension 3. Hyperlipidemia 4. Persistent atrial fibrillation/atrial flutter on Eliquis for anticoagulation on an outpatient basis 5. Obesity 6. History of urethral stricture, self cath at home 7. Osteoarthritis 8. Obstructive sleep apnea without home CPAP use. 9. 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 Osteoarthritis 11. 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 His is present at his bedside. His case will be discussed in detail with Dr. Constantine Clarke from cardiothoracic surgery. Preoperative testing and preoperative teaching has been initiated. He is scheduled to see Dr. Constantine Clarke as an outpatient on , 05/12/2020 at 10:45 AM for further evaluation and treatment recommendations including my cardiovascular station surgery. Once the patient's preoperative testing has been collected an STS risk score will be calculated in a discussed with the patient. Once the patient is able to ambulate a 5 m walk test will be completed and documented. More recommendations to follow based on patient's clinical course and once his preoperative testing has been collected. Thank you Dr. Trent for this consult and we will look for to working with the care of this patient. Time with Patient: Greater than 30
[2020-11-02 16:16] VITALS: BP 116/56; PULSE 54
--- NOTE | 2020-11-02 16:16 | US ---
EXAMINATION TYPE: US carotid duplex BILAT DATE OF EXAM: 11/02/2020 COMPARISON: NONE CLINICAL HISTORY: preop cardiac surgery. Pre op, no stroke history EXAM MEASUREMENTS: RIGHT: Peak Systolic Velocity (PSV) cm/sec ----- Right CCA: 100.4 ----- Right ICA: 83.1 ----- Right ECA: 110.6 ICA/CCA ratio: 0.8 RIGHT: End Diastole cm/sec ----- Right CCA: 12.4 ----- Right ICA: 16.0 ----- Right ECA: 8.4 LEFT: Peak Systolic Velocity (PSV) cm/sec ----- Left CCA: 102.6 ----- Left ICA: 94.5 ----- Left ECA: 122.0 ICA/CCA ratio: 0.9 LEFT: End Diastole cm/sec ----- Left CCA: 12.4 ----- Left ICA: 21.2 ----- Left ECA: 15.9 VERTEBRALS (direction of flow): Right Vertebral: Antegrade Left Vertebral: Antegrade Rhythm: Normal Mild heterogeneous plaque bilateral bulbs with no significant stenosis IMPRESSION: 1. No evidence of hemodynamically significant stenosis of the carotid arteries. There is mild atheros clerotic plaque at the bilateral common carotid artery bifurcations. Criteria for Assigning % of Stenosis / Diameter reduction (Estimation based on the indirect measurements of the internal carotid artery velocities (ICA PSV). 1. Normal (no stenosis)=ICA PSV < 125 cm/s: ratio < 2.0: ICA EDV<40 cm/s. 2. Less than 50% stenosis=ICA PSV < 125 cm/s: ratio < 2.0: ICA EDV<40 cm/s. 3. 50 to 69% stenosis=ICA PSV of 125 to 230 cm/s: ration 2.0 ? 4.0: ICA EDV 40-100 cm/s. 4. Greater than 70% stenosis to near occlusion= ICA PSV > 230 cm/s: ratio > 4.0: ICA EDV > 100 cm/s. 5. Near occlusion= ICA PSV velocities may be low or undetectable: variable ratio and ICA EDV. 6. Total occlusion=unable to detect flow.
[2020-11-02 16:49] LABS: ALT 20 U/L (4-49); AST 33 U/L (17-59); Albumin 4.3 g/dL (3.5-5.0); Alkaline Phosphatase 89 U/L (38-126); Magnesium 2.2 mg/dL (1.6-2.3); Total Bilirubin 0.7 mg/dL (0.2-1.3); Total Protein 7.3 g/dL (6.3-8.2)
--- NOTE | 2020-11-02 17:18 | XR ---
EXAMINATION TYPE: XR chest 2V DATE OF EXAM: 11/02/2020 COMPARISON: NONE HISTORY: Chest pain. Preoperative CABG. TECHNIQUE: Frontal and lateral views of the chest are obtained. FINDINGS: Moderate to advanced parenchymal fibrotic changes bilaterally with opacity favoring honeyco mbing in the right lung base. There is no pleural effusion or pneumothorax seen. The cardiac silhoue tte size is within normal limits with atherosclerotic change aortic knob. The osseous structures ar e intact. IMPRESSION: Moderate to advanced chronic parenchymal fibrotic changes without acute pulmonary proces s.
[2020-11-02 17:29] LABS: INR 0.9 (<1.2); Partial Thromboplastin Time 23.5 sec (22.0-30.0); Prothrombin Time 10.1 sec (9.0-12.0)
--- NOTE | 2020-11-02 21:52 | P.CARDCATH ---
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 Patient has had shortness breath which he has attributed to A. fib in the past however also underwent CT calcium scoring which was grossly abnormal, over 1999. He has been noting progressive shortness breath with minimal activity and therefore stress tests have been performed back in February with some fixed appearing defects as well as reversible ischemia in the diagonal territory. Therefore heart catheterization was recommended. CONSENT:I have discussed the risks, benefits and alternative therapies for the above-mentioned procedure and for both sedation/analgesia as well as necessary blood product administration, if indicated, as they pertain to this patient. The patient has indicated understanding and acceptance of the risks and procedures discussed. PROCEDURE: After the risks, benefits and alternatives of the above mentioned procedure explained in detail with the patient, informed consent was obtained. Patient was taken to the catheterization lab and prepped and draped in usual fashion. 1% lidocaine was used to anesthetize the right radial artery. A 6- Vietnamese sheath was placed in the right radial artery using modified Seldinger technique. Left coronary angiography was performed with a 5-Vietnamese JL 3.5 catheter and right coronary angiography was performed with a 5-Vietnamese JR5 catheter in various views. A 5-Vietnamese FR5 catheter was inserted into the left ventricle and pressure measurements were obtained. Left ventriculography was performed in the WAN projection with a power injection. The right radial sheath was removed and a TR band was placed with hemostasis achieved. The patient tolerated the procedure well. Patient was transported back to the post catheterization holding area in stable condition. Conscious Sedation: Patient was monitored under the direct supervision of vision of myself for conscious sedation using Versed and fentanyl for a total duration of 17 minutes HEMODYNAMICS: Ao: 132/78 LV: 128/2, LVEDP 22 SELECTIVE CORONARY ARTERIOGRAPHY: LEFT MAIN: The left main is a large caliber vessel which bifurcates into the LAD and circumflex. There is a heavily calcified distal left main 80% stenosis i nvolving the bifurcation. LEFT ANTERIOR DESCENDING CORONARY ARTERY: LAD is a large caliber vessel which wraps around to the apex. There is a proximal LAD 30% stenosis and a mid LAD 40-50% stenosis. LEFT CIRCUMFLEX CORONARY ARTERY: Left circumflex is a moderate caliber vessel proximal 80% stenosis and otherwise mild luminal irregularities. RIGHT CORONARY ARTERY: The right coronary artery is a large caliber vessel which gives off a PDA and PLV branch and is the dominant vessel. There are mild luminal irregularities. FINAL IMPRESSION: 1. CAD as described above including 80% left main, mid LAD 40-50% stenosis, proximal circumflex 80% stenosis 2. Elevated left sided filling pressures PLAN: 1. Aggressive risk factor modification per most recent ACC/AHA guidelines. 2. Recommend cardiothroacic surgery consultation for possible CABG.
[2020-11-03 01:40] LABS: Hemoglobin A1C 5.4 % (4.0-6.0)
[2020-11-03 04:22] LABS: Chol/HDL Ratio 3.53; Cholesterol 141 mg/dL (0-200); LDL Cholesterol,Calculated 82.8 mg/dL (0.0-131.0)
[2020-11-03 05:31] LABS: Hepatitis A Antibody IgM Non-Reactive (Non-Reactive); Hepatitis B Core IgM Non-Reactive (Non-Reactive); Hepatitis B Surface Antigen Non-Reactive (Non-Reactive); Hepatitis C IgG Antibody Non-Reactive (Non-Reactive)
--- NOTE | 2020-11-03 07:56 | ECHOF ---
Referral Reason:preop cardiac surgery MEASUREMENTS -------- HEIGHT: 180.3 cm WEIGHT: 96.6 kg BP: 123/58 RVIDd: 3.5 cm (< 3.3) IVSd: 1.2 cm (0.6 - 1.1) LVIDd: 5.4 cm (3.9 - 5.3) LVPWd: 1.2 cm (0.6 - 1.1) IVSs: 1.8 cm LVIDs: 3.8 cm LVPWs: 1.4 cm LA Diam: 4.3 cm (2.7 - 3.8) LAESV Index (A-L): 35.75 ml/m Ao Diam: 3.7 cm (2.0 - 3.7) AV Cusp: 2.2 cm (1.5 - 2.6) MV EXCURSION: 16.432 mm (> 18.000) MV EF SLOPE: 101 mm/s (70 - 150) EPSS: 0.6 cm RAP: 5.00 mmHg RVSP: 40.32 mmHg FINDINGS -------- The rhythm appears to be atrial flutter. This was a technically difficult study with suboptimal apical views. The left ventricular size is normal. There is borderline concentric left ventricular hypertrophy. Overall left ventricular systolic function is normal with, an EF between 55 - 60 %. The right ventricle is mildly enlarged. LA is moderately dilated 34-39 ml/m2 The right atrium is normal in size. 5.0mg of Lumason was utilized for enhancement of images Interatrial and interventricular septum intact. Aortic valve is trileaflet and is mildly thickened. There is trace mitral regurgitation. Mild tricuspid regurgitation present. There is mild pulmonary hypertension. The right ventricular systolic pressure, as measured by Doppler, is 40.32mmHg. The pulmonic valve is normal. The aortic root size is normal. Normal inferior vena cava with normal inspiratory collapse consistent with estimated right atrial pre ssure of 5 mmHg. The inferior vena cava is mildly dilated. There is no pericardial effusion. CONCLUSIONS -------- 1. The left ventricular size is normal. 2. There is borderline concentric left ventricular hypertrophy. 3. Overall left ventricular systolic function is normal with, an EF between 55 - 60 %. 4. The right ventricle is mildly enlarged. 5. LA is moderately dilated 34-39 ml/m2 6. 5.0mg of Lumason was utilized for enhancement of images 7. Aortic valve is trileaflet and is mildly thickened. 8. There is trace mitral regurgitation. 9. Mild tricuspid regurgitation present. 10. There is mild pulmonary hypertension. 11. The right ventricular systolic pressure, as measured by Doppler, is 40.32mmHg. 12. The inferior vena cava is mildly dilated. 13. There is no pericardial effusion. OUTREACH MANAGER: NEGIN Luis
[2020-11-09 11:33] LABS: Appearance,Urine Clear (Clear); Bilirubin,Urine Negative (Negative); Blood,Urine Negative (Negative); Color,Urine Yellow; Glucose,Urine (UA) Negative (Negative); Ketones,Urine Negative (Negative); Leukocyte Esterase,Urine Negative (Negative); Nitrite,Urine Negative (Negative); PH, Urine 5.5 (5.0-8.0); Protein,Urine Negative (Negative); Specific Gravity,Urine 1.012 (1.001-1.035); Urobilinogen,Urine <2.0 mg/dL (<2.0)
== END 2020-11-02 17:03 | disposition home or self-care (01) ==
LOC: CATHCVL 10:25
PROVIDERS: ATTEND Internal Medicine
DX: I25.10 Atherosclerotic heart disease of native coronary artery without angina pectoris (principal); I25.84 Coronary atherosclerosis due to calcified coronary lesion; I48.3 Typical atrial flutter; I08.1 Rheumatic disorders of both mitral and tricuspid valves; I10 Essential (primary) hypertension; R94.39 Abnormal result of other cardiovascular function study; Z72.0 Tobacco use; Z20.822 Contact with and (suspected) exposure to COVID-19; Z79.01 Long term (current) use of anticoagulants; Z79.82 Long term (current) use of aspirin; Z79.899 Other long term (current) drug therapy; Z88.1 Allergy status to other antibiotic agents; Z88.2 Allergy status to sulfonamides; Z88.8 Allergy status to other drugs, medicaments and biological substances
CPT/HCPCS: 94150; 93458; 80061; 80053; 80074; 84443; 83735; 85025; 85610; 85730; 87070; 83036; 87635; 71046; 93880; C8929; C1894; J2250; J2001; J3010; J1644; Q9950; Q9967; 93306

== ENCOUNTER → 2020-11-21 | Outpatient (CLI) | payer MEDICARE, OTHER ==
[2020-11-21 11:49] LABS: HCT 42.1 % (39.0-53.0); HGB 13.9 gm/dL (13.0-17.5); MCH 30.1 pg (25.0-35.0); MCV 91.2 fL (80.0-100.0); Mean Platelet Volume 8.7; Platelet Count 208 k/uL (150-450); RBC 4.62 m/uL (4.30-5.90); WBC 6.2 k/uL (3.8-10.6)
[2020-11-21 12:00] LABS: ALT 20 U/L (4-49); AST 30 U/L (17-59); African American GFR (CKD) >90 (>60 ml/min/1.73 sqM); Alkaline Phosphatase 73 U/L (38-126); Anion Gap 7 mmol/L; Blood Urea Nitrogen 22 mg/dL (9-20); Calcium 9.6 mg/dL (8.4-10.2); Carbon Dioxide 29 mmol/L (22-30); Chloride 105 mmol/L (98-107); Glucose 106 mg/dL (74-99); Non-African American GFR(CKD) 82 (>60 ml/min/1.73 sqM); Potassium 4.4 mmol/L (3.5-5.1); Sodium 141 mmol/L (137-145); Total Bilirubin 0.5 mg/dL (0.2-1.3)
[2020-11-21 13:19] LABS: INR 0.9 (<1.2); Partial Thromboplastin Time 24.9 sec (22.0-30.0); Prothrombin Time 10.2 sec (9.0-12.0)
--- NOTE | 2020-11-21 15:08 | P.PN ---
Progress Note - Text Progress Note Date: 11/21/20 5 meter walk test completed without difficulty: #1 3.99 sec #2 3.83 sec #3 3.98 sec
--- NOTE | 2020-11-22 14:28 | P.VSCSTY ---
Greater Saphenous Vein Mapping This is bilateral lower extremity greater saphenous vein mapping. Date of service: 11/21/2020 Vein quality and ultrasound appearance: We see no intraluminal thrombus or obvious wall changes. Vein size groin right : 6.9 x 8.2 groin left: 7.3 x 7.9 High thigh right: 3.8 x 4.2 high thigh left: 3.9 x 4.9 Mid thigh right: 3.9 x 4.5 mid thigh left: 3.1 x 3.3 Above-knee right: 3.6 x 4.3 above-knee left: 3.6 x 4.1 Below knee right: 3.4 x 3.9 below-knee left: 3.2 x 3.8 Mid calf right: 2.8 x 3.9 mid calf left: 3.2 x 4.3 Ankle right: 2.5 x 3.3 ankle left: To 0.6 x 3.2 Impression: Usable bilateral greater saphenous vein.
--- NOTE | 2020-11-22 14:29 | P.ARTDOP ---
Arterial Doppler LOWER EXTREMITY ARTERIAL DOPPLER: DATE OF SERVICE: 11/21/2020 Reason for study: Preop CABG. Doppler waveforms: Multiphasic bilaterally throughout with good toe waveforms. Pulse volume recording: []. Pressure gradients: None. Ankle-brachial indices: Greater than 1 bilaterally. Toe brachial indices: 0.63 on the right, 0.43 on the left Impression: Normal proximal study. Mild decrease in toe waveforms likely to be vasospastic in nature. Distal disease less likely and not of clinical significance..
== END | disposition home or self-care (01) ==
LOC: LABPAT 09:38
PROVIDERS: ATTEND Thoracic Surgery (Cardiothoracic Vascular Surgery)
DX: Z01.810 Encounter for preprocedural cardiovascular examination (principal); Z20.822 Contact with and (suspected) exposure to COVID-19; I48.91 Unspecified atrial fibrillation; I48.92 Unspecified atrial flutter; I25.10 Atherosclerotic heart disease of native coronary artery without angina pectoris; I10 Essential (primary) hypertension; E78.5 Hyperlipidemia, unspecified; Z79.01 Long term (current) use of anticoagulants; Z79.899 Other long term (current) drug therapy
CPT/HCPCS: 80053; 85027; 85610; 85730; 93970; 93922; 36415; U0003; C9803; U0005

== ENCOUNTER 2020-11-27 05:46 | Inpatient (IN) | payer MEDICARE, OTHER ==
--- NOTE | 2020-11-09 12:30 | CONS ---
CONSULTATION REFERRED BY: Dr. Trent. FAMILY DOCTOR: Dr. Yuliya Ortiz. HISTORY OF PRESENT ILLNESS: Mr. Lancaster is a 80-year-old gentleman who presents with exertional dyspnea. He has a history of COPD, however, his PFTs are stable and demonstrate FEV1 of 2.43, which is 75% of predicted and an FVC of 2.33, which is 73% of predicted. The patient underwent cardiac catheterization demonstrating left main disease with 80% stenosis of the distal left main, 75% stenosis in the LAD after the 1st diagonal and 75% stenosis in the proximal circumflex coronary artery, 75% stenosis in the distal circumflex artery beyond the first obtuse marginal branch. The patient is codominant with a large circumflex system and a relatively small and non diseased right coronary artery. Left ventricular function is reasonably well preserved with ejection fraction between 55 and 60%. There is no significant valvular heart disease. The patient was recommended to have elective coronary bypass surgery. PREVIOUS MEDICAL HISTORY: Includes chronic atrial fibrillation, flutter with enlarged left atrium, hypertension, coronary artery disease, elevated cholesterol, osteoarthritis, sleep apnea. The patient has a history of prostatic problems and has been self cathing since 2009. He has a history of Guillain [place]. SURGICAL HISTORY: Includes umbilical herniorrhaphy and tonsillectomy, he has also had ureteral dilatation. SOCIAL HISTORY: The patient has a distant history of cigarette smoking and alcohol abuse, but is currently not doing either. PHYSICAL EXAM: Reveals an obese gentleman in no distress. Pupils are equal and reactive to light. Extraocular motions are intact. There are no cervical bruits. Lung moreira are clear. Heart rate and rhythm are regular without murmur, rub, or gallop. Abdomen: Soft and nontender. Good femoral pulses are present. Pedal pulses are diminished. There are varicose veins in the left lower extremity. None on the right, saphenous veins are not palpable at the ankle. Left radial pulse is good. Elfego's test demonstrates patent ulnar circulation. RECOMMENDATION: Is for coronary bypass surgery with bypass of the LAD, diagonal, 1st obtuse marginal and posterior lateral branch of the circumflex. We will clip the left atrial appendage and consider ablation of the pulmonary veins. This was discussed with the patient. He is obviously not thrilled about the concept of heart surgery, but recognizes this is what is best for him. He is otherwise in fairly good physical condition despite his age and should be relatively low risk for surgery. SDS risk was calculated 0.9% mortality and this was discussed with the patient. Surgery will be scheduled in next 2 weeks. We will get radial artery mapping. The patient will need to stop his Eliquis 3 days before surgery. AGATA / TAD: [id number] /
[~2020-11-27 05:46] MED LIST changes: +ALBUMIN HUMAN 25% 50 ML IV ONE; -ALPRAZolam 0.25 MG TAB PO PRN; -ALPRAZolam 0.5 MG TAB PO PRN; +ASPIRIN 325 MG TAB PO ONE; -ASPIRIN 325 MG TAB PO STA; +ATORVASTATIN 10 MG TAB PO ONE; -ATORVASTATIN 80 MG TAB PO STA; +CALCIUM CHLORIDE 100 MG/ML 10 ML SYRINGE IV ONE; +CARDIOPLEGIC SOLN (K+ 16 MEQ/L 1,000 ML with SODIUM BICARB (1 MEQ/ML) 20 ML, LIDOCAINE ... PERFUSION ONE; +CHLORHEXIDINE GLUCONATE 15 ML CUP MUCOUS MEM ONE; +CLEVIDIPINE BUTYRATE 25 MG in EMPTY BAG 1 BAG IV ONE; +HEPARIN SODIUM 1,000 UN/ML (10ML VL) IV ONE; +HEPARIN SODIUM,PORCINE 5,000 UNIT in SODIUM CHLORIDE 0.9% 500 ML 500 ML IV ONE; +INSULIN REGULAR 100 UNIT in SODIUM CHLORIDE 0.9% 100 ML IV ONE; +LACTATED RINGERS 1,000 ML IV SCH; +MAGNESIUM SULFATE MG 500 MG/ML IV ONE; +MANNITOL 25% 12.5 GM/50 ML VIAL IV ONE; +MIDAZOLAM 2 MG/2 ML VIAL IV PRN; -NITROGLYCERIN SL TABS 0.4 MG TAB SUBLINGUAL PRN; +NITROGLYCERIN-D5W PMX 25 MG/250 ML BTL IV ONE; +NITROGLYCERIN-D5W PMX 50 MG in DEXTROSE/WATER 1 250ML.BAG IV ONE; +NOREPINEPHRINE 4 MG in SODIUM CHLORIDE 0.9% 250 ML IV ONE; +PAPAVERINE 360 MG in SODIUM CHLORIDE 0.9% 90 ML IV ONE; +PHENYLEPHRINE 10 MG/ML VIAL IV ONE; +PHENYLEPHRINE 40 MG in SODIUM CHLORIDE 0.9% 250 ML IV ONE; +PROTAMINE SULFATE 10 MG/ML 25 ML VIAL IV ONE; +PROTAMINE SULFATE 250 MG in EMPTY BAG 1 BAG IV ONE; +SODIUM BICARB 8.4% 50 ML SYR (1 MEQ/ML) IV ONE; -SODIUM CHLORIDE 0.9% 1,000 ML in EMPTY BAG 1 BAG IV ONE; +TRANEXAMIC ACID 2,000 MG in SODIUM CHLORIDE 0.9% 80 ML IV ONE; +ceFAZolin 1,000 MG in SODIUM CHLORIDE 0.9% IRRIGATIO 1,000 ML IRRIGATION ONE; +propofoL 1,000 MG/100 ML VIAL IV ONE
[2020-11-27 06:38] LABS: Glucose,Whole Blood 94 mg/dL (75-99)
[2020-11-27] MEDS ORDERED: METOPROLOL TARTRATE 12.5 MG TAB PO STA (06:46)
[2020-11-27] MEDS ORDERED: SODIUM CHLORIDE 0.9% IRRIG 1,000 ML BTL IRRIGATION ONE (08:08)
[2020-11-27] MEDS ORDERED: MIDAZOLAM 2 MG/2 ML VIAL ONE (08:08)
[2020-11-27] MEDS ORDERED: POTASSIUM CHLORIDE OPEN HEART 20 MEQ/50 ML BAG IVPB ONE (08:08)
[2020-11-27] MEDS ORDERED: PROPOFOL 10 MG/ML 20 ML VIAL IV ONE (08:08)
[2020-11-27] MEDS ORDERED: PROTAMINE SULFATE 10 MG/ML 5 ML VIAL IV ONE (08:08)
[2020-11-27] MEDS ORDERED: MAGNESIUM SULFATE 4 MEQ/ML 10ML VIAL ONE (08:08)
[2020-11-27] MEDS ORDERED: HEPARIN SODIUM,PORCINE 10,000 UNIT/ML 1 ML VIAL ONE (08:08)
[2020-11-27] MEDS ORDERED: fentaNYL (PF) 50 MCG/ML 50 ML VIAL ONE (08:08)
[2020-11-27] MEDS ORDERED: VECURONIUM 10 MG VIAL IV ONE (08:08)
[2020-11-27] MEDS ORDERED: ALBUMIN HUMAN 5% (25gm) 500 ML VIAL IVPB ONE (08:08)
[2020-11-27] MEDS ORDERED: WATER FOR INJECTION, STERILE 10 ML VIAL IV ONE (08:08)
[2020-11-27] MEDS ORDERED: LIDOCAINE 2% SYG (PF) 100 MG/5 ML ONE (08:08)
[2020-11-27 08:41] LABS: ABG Base Excess 0.1 mmol/L; ABG Glucose Whole Blood 100 mg/dL (75-99); ABG HCO3 26 mmol/L (21-25); ABG Hematocrit 38 % (34.0-46.0); ABG Ionized Calcium 4.8 mg/dL (4.5-5.3); ABG Lactic Acid Whole Blood 1.2 mmol/L (0.5-1.6); ABG PCO2 45 mmHg (35-45); ABG PH 7.37 (7.35-7.45); ABG PO2 292 mmHg (83-108); ABG Potassium Whole Blood 3.8 mmol/L (3.4-4.5); ABG Sodium Whole Blood 140 mmol/L (135-146); ABG TCO2 27 mmol/L (19-24)
[2020-11-27 10:24] LABS: ABG Base Excess -0.9 mmol/L; ABG Glucose Whole Blood 133 mg/dL (75-99); ABG HCO3 25 mmol/L (21-25); ABG Hematocrit 38 % (34.0-46.0); ABG Ionized Calcium 4.8 mg/dL (4.5-5.3); ABG Lactic Acid Whole Blood 1.5 mmol/L (0.5-1.6); ABG Oxygen Saturation 99.5 % (94-97); ABG PCO2 45 mmHg (35-45); ABG PH 7.35 (7.35-7.45); ABG PO2 171 mmHg (83-108); ABG Potassium Whole Blood 4.3 mmol/L (3.4-4.5); ABG Sodium Whole Blood 139 mmol/L (135-146); ABG TCO2 26 mmol/L (19-24)
[2020-11-27 11:15] LABS: ABG Base Excess -0.3 mmol/L; ABG Glucose Whole Blood 120 mg/dL (75-99); ABG HCO3 24 mmol/L (21-25); ABG Hematocrit 34 % (34.0-46.0); ABG Ionized Calcium 4.6 mg/dL (4.5-5.3); ABG Lactic Acid Whole Blood 1.4 mmol/L (0.5-1.6); ABG Oxygen Saturation 98.3 % (94-97); ABG PCO2 35 mmHg (35-45); ABG PH 7.44 (7.35-7.45); ABG PO2 106 mmHg (83-108); ABG Potassium Whole Blood 3.9 mmol/L (3.4-4.5); ABG Sodium Whole Blood 139 mmol/L (135-146); ABG TCO2 25 mmol/L (19-24)
[2020-11-27 11:40] LABS: ABG Base Excess -0.5 mmol/L; ABG Glucose Whole Blood 119 mg/dL (75-99); ABG HCO3 25 mmol/L (21-25); ABG Hematocrit 33 % (34.0-46.0); ABG Ionized Calcium 4.7 mg/dL (4.5-5.3); ABG Lactic Acid Whole Blood 1.6 mmol/L (0.5-1.6); ABG Oxygen Saturation 94.5 % (94-97); ABG PCO2 41 mmHg (35-45); ABG PH 7.38 (7.35-7.45); ABG PO2 74 mmHg (83-108); ABG Potassium Whole Blood 3.8 mmol/L (3.4-4.5); ABG Sodium Whole Blood 139 mmol/L (135-146); ABG TCO2 26 mmol/L (19-24)
--- NOTE | 2020-11-27 12:40 | P.OP ---
Date of Procedure: 11/27/20 Preoperative Diagnosis: Artery disease, atrial flutter Postoperative Diagnosis: Same, pneumopathy Procedure(s) Performed: Off-pump CABG 3 with RICE to LAD, SVG to diagonal, SVG to posterior lateral distal circumflex). Endovascular vein harvest chest and epi-aortic ultrasonography. Modified Dowling maze bilateral pulmonary vein ablation and ligation of the left atrial appendage with a 35 mm AtriCure clip. Electrical cardioversion. Biopsy left upper lobe lung. ( Implants: 35mm AtriCure clip. Anesthesia: GETA Surgeon: Constantine Clarke Air Conditioning Unit Tester #1: Alonso Dimas Air Conditioning Unit Tester #2: Carlos Arcos Estimated Blood Loss (ml): 200 IV fluids (ml): 2,000 Urine output (ml): 500 Pathology: other (Biopsy left upper lobe lung) Condition: stable Disposition: ICU Indications for Procedure: 80-year-old male with anginal symptomatology at the left main coronary artery disease. He has a distant history of atrial fibrillation but was in atrial flutter on presentation to the hospital. This was discussed with Dr. Schwartz electrophysiology and it was agreed we would perform pulmonary vein ablation and ligation of left atrial appendage. On palpating the lung was noted lung was very gritty consistency of compliance was noted to be poor and therefore a lung biopsy was indicated. Operative Findings: Compliance was poor and consistency of the lung was gritty. Patient was in atrial flutter. Targets were good. Left ventricle is enlarged. There was no evidence of thrombus in the left atrial appendage by AYAD and valvular function was essentially normal. Description of Procedure: 80-year-old male brought to operating room placed supine on the operating table anesthetized and intubated. Anterior torso and bilateral lower extremities were sterilely prepped and draped. Endoscopic vein harvest was performed from the upper calf to the groin using endoscopic harvest of the greater saphenous vein. This was of adequate quality. Simultaneous sternotomy was performed a left hemisternum was retracted upwards and the left internal mammary artery harvested on a vascular pedicle left intact on its origin from the subclavian and divided distally. It was an excellent conduit. The left pleural space was drained with 32-Guyanese chest tube. There were changes noted in the pulmonary parenchyma as noted above. Standard sternal retractor was placed and the pericardium was opened in the midline. Heart was exposed with pericardial sutures. Suction stabilization was used during distal anastomosis. The patient was heparinized and the ACT is maintained greater than 250 during grafting. Epi-aortic ultrasonography was performed in the ascending aorta was noted to be relatively normal. Dissection was carried out around the right superior pulmonary vein and the right sided pulmonary veins were encircled. AtriCure epicardial ablation clamp was placed across the left atrium at the insertion of the right pulmonary veins and 3 parallel lines of ablation were performed at the left atrium at the pulmonary vein insertion on the right. Following this the left-sided pulmonary veins were exposed. The ligament of Francis was to lack divided with electrocautery. Pulmonary veins were encircled and ablation of the left atrium at the insertion of the left pulmonary veins with 3 parallel lines was then performed. Following this a 35 mm AtriCure clip was placed at the base of the left atrial appendage. We had ascertained that there was no thrombus in the left atrial appendage with intraoperative AYAD. Following completion of the modified Dowling maze procedure we proceeded to cardiovert the patient to sinus rhythm. This was performed with a single synchronized shock of 20 J. Next we proceeded with tunneling the RICE into the pericardial space through the left pericardium. The mid LAD was stabilized just beyond this takeoff of the second diagonal. Here was a 2 mm soft vessel. It was opened and blood flow control with a 2 mm flow through. End to side anastomosis of the RICE to the LAD was performed with running 8-0 Prolene suture. Completion anastomosis flow through was removed effectively probing the proximal distal anastomosis. Suture was tied with good resultant hemostasis. Inflow was open. The KAIT pedicle was tacked surrounding epicardium with 6-0 silk. Next the diagonal was stabilized. It was a 1.5 mm vessel of good quality. Was opened and blood flow control with a 1.5 mm flow through. Saphenous vein was anastomosed in an inside fashion with running 7-0 Prolene suture. Completion anastomosis the flow through was removed 50 probe the proximal distal portion anastomosis. Suture was tied with good result and hemostasis. Good backbleeding was noted and the vein controlled with a bulldog clamp and the vein was cut to appropriately to reach the ascending aorta. Next the posterior lateral wall the heart was exposed. The distal circumflex branch was a 1.75 mm good size vessel. It was of good quality. It was stabilized and opened. Blood flow was controlled 1.5 mm flow through. A second piece of saphenous vein was anastomosed in end-to-side fashion with running 7-0 Prolene suture. On completion anastomosis the flow through was removed 50 probe the proximal distal portion of the anastomosis. Suture was tied with good result and hemostasis. Good backbleeding was noted and the vein graft. The heart was lowered in anatomic position and the vein brought to the ascending aorta. It was cut to appropriate length. Blood pressure was controlled by anesthesia. Partial-occlusion clamp was placed on the ascending aorta. 24 mm punch holes were created in the ascending aorta and the proximal anastomosis constructed with running 6-0 Prolene suture. Completion of the proximal anastomoses the partial occlusion clamp was removed. The vein grafts were de-aired by needle holes and the inflow was open. Good hemostasis was now noted throughout. Heparin was reversed with protamine. Chest was irrigated with antibiotic solution. The mediastinum was drained with a 36-Guyanese chest tube. At this point we decided to biopsy the left upper lobe of the lung. Crunchy area was noted and multiple firings of Endo WEI were used to perform a wedge resection. This was cut on the back table and a portion sent for culture and the remainder for pathology. Staple lines were noted to be intact. There was no evidence of airleak.'s chest was now closed with 8 sternal wires. Fascia was closed with 0 Ethibond. Subcutaneous and subcuticular layers in the leg and chest were closed with layers of Vicryl suture. Patient was transferred to the ICU in stable condition.
[2020-11-27 12:53] LABS: Glucose,Whole Blood 148 mg/dL (75-99)
[2020-11-27] MEDS ORDERED: AMIODARONE 360 MG in DEXTROSE 5% IN WATER 200 ML IV PRN ×2 (12:53)
[2020-11-27] MEDS ORDERED: Potassium Replacement Protocol 1 EACH MISC MISCELLANE PRN (12:53)
[2020-11-27] MEDS ORDERED: INSULIN REGULAR 100 UNIT in SODIUM CHLORIDE 0.9% 100 ML IV SCH (12:53)
[2020-11-27] MEDS ORDERED: NITROGLYCERIN-D5W PMX 50 MG in DEXTROSE/WATER 1 250ML.BAG IV SCH (12:53)
[2020-11-27] MEDS ORDERED: Phosphorus Replacement Protoco 1 EACH MISC MISCELLANE PRN (12:53)
[2020-11-27] MEDS ORDERED: CALCIUM GLUCONATE 2 GM in SODIUM CHLORIDE 0.9% 100 ML IVPB PRN (12:53)
[2020-11-27] MEDS ORDERED: DEXTROSE 5% IN WATER 100 ML with AMIODARONE 150 MG IV PRN (12:53)
[2020-11-27] MEDS ORDERED: ONDANSETRON 4 MG/2 ML VIAL IVP PRN (12:53)
[2020-11-27] MEDS ORDERED: BENZOCAINE/MENTHOL LOZENG 1 EACH LOZENGE MUCOUS MEM PRN (12:53)
[2020-11-27] MEDS ORDERED: CLEVIDIPINE BUTYRATE 25 MG in EMPTY BAG 1 BAG IV SCH (12:53)
[2020-11-27] MEDS ORDERED: hydrALAZINE HCL 20 MG/ML 1 ML VIAL IVP PRN (12:53)
[2020-11-27] MEDS ORDERED: AMIODARONE 450 MG in DEXTROSE 5% IN WATER 250 ML IV PRN ×2 (12:53)
[2020-11-27] MEDS ORDERED: DEXMEDETOMIDINE/0.9% NACL(PMX) 400 MCG in EMPTY BAG 1 BAG IV SCH (12:53)
[2020-11-27] MEDS ORDERED: IPRATROPIUM-ALBUTEROL 3 ML NEB INHALATION PRN (12:53)
[2020-11-27] MEDS ORDERED: Magnesium Replacement Protocol 1 EACH MISC MISCELLANE PRN (12:53)
[2020-11-27] MEDS ORDERED: METOCLOPRAMIDE 5 MG/ML 2 ML VIAL IVP PRN (12:53)
[2020-11-27 13:10] LABS: ABG Base Excess -0.6 mmol/L; ABG HCO3 26 mmol/L (21-25); ABG Oxygen Saturation 99.5 % (94-97); ABG PCO2 50 mmHg (35-45); ABG PH 7.32 (7.35-7.45); ABG PO2 310 mmHg (83-108); ABG TCO2 27 mmol/L (19-24)
--- NOTE | 2020-11-27 13:18 | XR ---
EXAMINATION TYPE: XR chest 1V portable DATE OF EXAM: 11/27/2020 COMPARISON: 11/27/2020 INDICATION: Postop cardiac surgery TECHNIQUE: Single frontal view of the chest is obtained. FINDINGS: The heart size is upper limits of normal. The pulmonary vasculature is indistinct. Diffuse increased lung markings are present bilaterally. Correlate for volume overload and pulmonary edema. Developing ARDS should be considered. Endotracheal tube tip is above the nehemias. Nasogastric tube transverses the thorax tip within the abd omen. 2 left-sided chest tubes are present. No pneumothorax is evident. Right [place] catheter is p resent with the tip in the main pulmonary artery. IMPRESSION: 1. Diffuse scattered increased lung markings. Correlate for volume overload and pulmonary edema. Foll ow-up is recommended 2. Lines and catheters discussed above
[2020-11-27 13:19] LABS: WBC 7.5 k/uL (3.8-10.6)
[2020-11-27 13:20] LABS: Basophils % (A) 0 %; Eosinophils # (A) 0.1 k/uL (0-0.7); Eosinophils % (A) 1 %; HCT 33.6 % (39.0-53.0); HGB 11.7 gm/dL (13.0-17.5); Lymphocytes # (A) 0.9 k/uL (1.0-4.8); Lymphocytes % (A) 11 %; MCH 31.6 pg (25.0-35.0); MCV 90.5 fL (80.0-100.0); Mean Platelet Volume 9.3; Monocytes # (A) 0.4 k/uL (0-1.0); Monocytes % (A) 6 %; Neutrophils # (A) 6.1 k/uL (1.3-7.7); Neutrophils % (A) 81 %; Platelet Count 140 k/uL (150-450); RBC 3.71 m/uL (4.30-5.90); RDW 13.4 % (11.5-15.5)
[2020-11-27] MEDS: LACTATED RINGERS 1,000 ML IV SCH (13:26)
[2020-11-27 13:30] LABS: INR 1.1 (<1.2); Partial Thromboplastin Time 25.1 sec (22.0-30.0); Prothrombin Time 11.2 sec (9.0-12.0)
--- NOTE | 2020-11-27 13:33 | P.ANPRN ---
Procedure Note - Anesthesia - Invasive Line Right Central Line Time Out Performed: Yes (724) Date of Procedure: 11/27/20 Time of Procedure: 07:25 Location of Patient: Phase I Preparation: Sterile Prep, Sterile Dressing Arterial Line Location: Radial Ultrasound Used: Yes Purpose - Visualization and Identification of Vasculature: Yes Needle Guage: 18g angio Image Stored and Saved: Yes Narrative: Central line placement per sterile protocol utilized. Right neck prepped. Draped. Sterile protocol. +local +angio + cvp +uneventful introduction and dilation right IJ cordis. free flow. Non pulsitile +US image saved. Right [place]hemiah Time Out Performed: Yes (724) Date of Procedure: 11/27/20 Time of Procedure: 07:36 Location of Patient: Phase I Preparation: Sterile Prep, Sterile Dressing Arterial Line Location: Radial Ultrasound Used: No Purpose - Visualization and Identification of Vasculature: No Image Stored and Saved: No Narrative: Central line placement per sterile protocol utilized. Floated in sheath under sterile protocol to wedge at 57cm. Withdrawn to 52cm. No wedge. Patient tolerated procedure well.
[2020-11-27 13:37] LABS: ALT 12 U/L (4-49); AST 25 U/L (17-59); African American GFR (CKD) >90 (>60 ml/min/1.73 sqM); Albumin 2.7 g/dL (3.5-5.0); Alkaline Phosphatase 52 U/L (38-126); Anion Gap 5 mmol/L; Blood Urea Nitrogen 19 mg/dL (9-20); Calcium 8.1 mg/dL (8.4-10.2); Carbon Dioxide 23 mmol/L (22-30); Chloride 108 mmol/L (98-107); Glucose 120 mg/dL (74-99); Magnesium 2.1 mg/dL (1.6-2.3); Non-African American GFR(CKD) >90 (>60 ml/min/1.73 sqM); Potassium 3.8 mmol/L (3.5-5.1); Sodium 136 mmol/L (137-145); Total Bilirubin 0.6 mg/dL (0.2-1.3)
[2020-11-27 14:07] LABS: Glucose,Whole Blood 151 mg/dL (75-99)
[2020-11-27] MEDS: ACETAMINOPHEN IV (For NPO) 1,000 MG in EMPTY BAG 1 BAG IVPB SCH ×2 (14:08→23:17)
[2020-11-27] MEDS: ALBUMIN HUMAN 5% 250 ML in EMPTY BAG 1 BAG IVPB PRN ×3 (14:10→18:55)
[2020-11-27] MEDS ORDERED: ALBUMIN HUMAN 5% 250 ML IVPB ONE (14:15)
--- NOTE | 2020-11-27 14:36 | P.CONS ---
History of Present Illness - History of Present Illness This is a pleasant 80 years old male with past medical history of atrial fibri llation/flutter, coronary artery disease, hypertension, hyperlipidemia, osteoarthritis, sleep apnea on CPAP/BiPAP Patient was admitted for symptomatic left main coronary artery disease status post CABG for 3 vessels. Electrical cardioversion and biopsy of the left upper lung Patient currently in the ICU, patient is already intubated and sedated and on mechanical ventilation. Patient temperature is 90.7, heart rate is 57, blood pressure 160/78, patient saturating 94% on room air CBC is unremarkable except for mild anemia with hemoglobin 11.7. Sodium 136, creatinine normal 0.6. Glucose elevated at 148. Liver enzymes not elevated. PH 7.3, pCO2 50, pO2 310 Patient received 1 unit of blood transfusion. Chest x-ray: Diffuse bilateral infiltrates, possible pulmonary edema Review of Systems n/a patient is intubated Past Medical History Past Medical History: Atrial Fibrillation, Atrial Flutter, Chest Pain / Angina, Hyperlipidemia, Hypertension, Osteoarthritis (OA), Pneumonia, Prostate Disorder, Sleep Apnea/CPAP/BIPAP Additional Past Medical History / Comment(s): self caths since 2009. States 'breanne don't know why he can't urinate. 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 Colonoscopy with polyps removed, bilateral cataract surgery,left arm cyst removed,umbilical hernia Past Anesthesia/Blood Transfusion Reactions: No Reported Reaction Additional Past Anesthesia/Blood Transfusion Reaction / Comm: no hx blood transfusion Smoking Status: Former smoker - Past Family History Mother Family Medical History: Cancer Additional Family Medical History / Comment(s): ? colon cancer. History of hydrocephaly with shunt placement. at age 97. Father Family Medical History: No Reported History Medications and Allergies Home Medications Medication Instructions Recorded Confirmed Type Ascorbic Acid [Vitamin C] 500 mg PO HS 01/07/20 11/27/20 History Aspirin [Adult Low Dose Aspirin EC] 81 mg PO HS 01/07/20 11/27/20 History Candesartan Cilexetil [Atacand] 16 mg PO DAILY 01/07/20 11/27/20 History Cholecalciferol [Vitamin D3 (25 5,000 unit PO HS 01/07/20 11/27/20 History Mcg = 1000 Iu)] L.acidoph,Paracasei, B.lactis 1 cap PO DAILY 01/07/20 11/27/20 History [Probiotic] Magnesium Gluconate [Magonate] 500 mg PO DAILY 01/07/20 11/27/20 History Multivitamins, Thera [Multivitamin 1 tab PO HS 01/07/20 11/27/20 History (formulary)] Nitrofurantoin Monohyd/M-Cryst 100 mg PO DAILY 01/07/20 11/27/20 History [Macrobid] Nitroglycerin Sl Tabs [Nitrostat] 0.4 mg SUBLINGUAL Q5M PRN 01/07/20 11/27/20 History Potassium Chloride [Klor-Con 10] 10 meq PO MOWEFR PRN 01/07/20 11/27/20 History Rosuvastatin Calcium [Crestor] 40 mg PO HS 01/07/20 11/27/20 History Ubidecarenone [Co Q-10] 100 mg PO HS 01/07/20 11/27/20 History Apixaban [Eliquis] 5 mg PO BID #60 tab 01/09/20 11/27/20 Rx Ivermectin 3 mg PO Q7D 10/31/20 11/27/20 History [place]-3/Dha/Epa/Fish Oil [Fish Oil 1 each PO HS 10/31/20 11/27/20 History 500 mg Softgel] Quercetin 500 mg PO DAILY 10/31/20 11/27/20 History resveratroL [Resveratrol] 100 mg PO HS 10/31/20 11/27/20 History Allergies Allergy/AdvReac Type Severity Reaction Status Date / Time ciprofloxacin [From Cipro] Allergy muscle Verified 11/27/20 06:11 cramps finasteride [From Proscar] Allergy Unknown Verified 11/27/20 06:11 lisinopril Allergy facial Verified 11/27/20 06:11 swelling sulfamethoxazole Allergy abdominal Verified 11/27/20 06:11 [From Bactrim] pain,diarrhea trimethoprim [From Bactrim] Allergy abdominal Verified 11/27/20 06:11 pain,diarrhea metoprolol AdvReac states Verified 11/27/20 06:11 "b/p went to 60/40,HR 35" Physical Exam Vitals: Vital Signs Temp Pulse Resp BP BP Pulse Ox 11/27/20 06:48 97.0 F L 57 L 18 160/78 153/72 94 L Intake and Output 11/26/20 11/27/20 11/27/20 22:59 06:59 14:59 Intake Total 53 Output Total 1000 Balance -947 Intake: IV 53 Output: Urine 500 Estimated Blood Loss 500 Other: Weight 96.9 kg -GENERAL: The patient is alert intubated and sedated HEENT: Pupils are round and equally reacting to light. EOMI. No scleral icterus. No conjunctival pallor. Normocephalic, atraumatic. No pharyngeal erythema. No thyromegaly. CARDIOVASCULAR: S1 and S2 present. No murmurs, rubs, or gallops. -PULMONARY: Chest is clear to auscultation, no wheezing. Bilateral crepitations ABDOMEN: Soft, nontender, nondistended, normoactive bowel sounds. No palpable organomegaly. MUSCULOSKELETAL: No joint swelling or deformity. EXTREMITIES: No cyanosis, clubbing, or pedal edema. NEUROLOGICAL: Gross neurological examination did not reveal any focal deficits. SKIN: No rashes. No petechiae Results CBC & Chem 7: 11/27/20 12:49 11/27/20 12:49 Labs: Abnormal Lab Results - Last 24 Hours (Table) 11/21/20 11/27/20 11/27/20 Range/Units 11:09 08:44 10:27 RBC (4.30-5.90) m/uL Hgb (13.0-17.5) gm/dL Hct (39.0-53.0) % Plt Count (150-450) k/uL Lymphocytes # (1.0-4.8) k/uL ABG pH (7.35-7.45) ABG pCO2 (35-45) mmHg ABG pO2 292 H 171 H (83-108) mmHg ABG HCO3 26 H (21-25) mmol/L ABG Total CO2 27 H 26 H (19-24) mmol/L ABG O2 Saturation 100.0 H 99.5 H (94-97) % ABG Hematocrit (34.0-46.0) % ABG Glucose 100 H 133 H (75-99) mg/dL Hemoglobin 12.3 L 12.3 L (13.0-17.5) gm/dL Sodium (137-145) mmol/L Chloride (98-107) mmol/L Glucose (74-99) mg/dL POC Glucose (mg/dL) (75-99) mg/dL Calcium (8.4-10.2) mg/dL Total Protein (6.3-8.2) g/dL Albumin (3.5-5.0) g/dL Arterial Blood Glucose 100 H 133 H (75-99) mg/dL Crossmatch See Detail 11/27/20 11/27/20 11/27/20 Range/Units 11:18 11:43 12:49 RBC 3.71 L (4.30-5.90) m/uL Hgb 11.7 L (13.0-17.5) gm/dL Hct 33.6 L (39.0-53.0) % Plt Count 140 L (150-450) k/uL Lymphocytes # 0.9 L (1.0-4.8) k/uL ABG pH (7.35-7.45) ABG pCO2 (35-45) mmHg ABG pO2 74 L (83-108) mmHg ABG HCO3 (21-25) mmol/L ABG Total CO2 25 H 26 H (19-24) mmol/L ABG O2 Saturation 98.3 H (94-97) % ABG Hematocrit 33 L (34.0-46.0) % ABG Glucose 120 H 119 H (75-99) mg/dL Hemoglobin 11.0 L 10.7 L (13.0-17.5) gm/dL Sodium (137-145) mmol/L Chloride (98-107) mmol/L Glucose (74-99) mg/dL POC Glucose (mg/dL) (75-99) mg/dL Calcium (8.4-10.2) mg/dL Total Protein (6.3-8.2) g/dL Albumin (3.5-5.0) g/dL Arterial Blood Glucose 120 H 119 H (75-99) mg/dL Crossmatch 11/27/20 11/27/20 11/27/20 Range/Units 12:49 12:50 13:01 RBC (4.30-5.90) m/uL Hgb (13.0-17.5) gm/dL Hct (39.0-53.0) % Plt Count (150-450) k/uL Lymphocytes # (1.0-4.8) k/uL ABG pH 7.32 L (7.35-7.45) ABG pCO2 50 H (35-45) mmHg ABG pO2 310 H (83-108) mmHg ABG HCO3 26 H (21-25) mmol/L ABG Total CO2 27 H (19-24) mmol/L ABG O2 Saturation 99.5 H (94-97) % ABG Hematocrit (34.0-46.0) % ABG Glucose (75-99) mg/dL Hemoglobin (13.0-17.5) gm/dL Sodium 136 L (137-145) mmol/L Chloride 108 H (98-107) mmol/L Glucose 120 H (74-99) mg/dL POC Glucose (mg/dL) 148 H (75-99) mg/dL Calcium 8.1 L (8.4-10.2) mg/dL Total Protein 5.0 L (6.3-8.2) g/dL Albumin 2.7 L (3.5-5.0) g/dL Arterial Blood Glucose (75-99) mg/dL Crossmatch Assessment and Plan Assessment: Severe left main coronary artery disease status post CABG Diffuse bilateral infiltrates, possible pulmonary edema acute hypoxic respiratory failure, needing intubation and mechanical ventilation atrial fibrillation/flutter was on Eliquis at home , status post electrical cardioversion h/o coronary artery disease hypertension Hyperlipidemia History of osteoarthritis History of sleep apnea on CPAP/BiPAP this is a pleasant 80 years old male with severeleft main vessel coronary artery disease Course status post CABG procedure. Also with acute hypoxic respiratory failure Keep monitoring the patient in the ICU continue with aspirin and Plavix, statin and metoprolol Continue with insulin sliding scale Labs and medication were reviewed.. Continue same treatment. Continue with symptomatic treatment. Resume home medication. Monitor lytes and vitals. DVT and GI prophylaxis. Further recommendations depends on the clinical course of the patient DVT prophylaxis: Subcutaneous heparin GI Prophylaxis: Pepcid Prognosis is guarded
--- NOTE | 2020-11-27 14:43 | P.CNPUL ---
History of Present Illness Consult date: 11/27/20 Requesting physician: Constantine Clarke Reason for consult: other Chief complaint: Coronary artery disease, off-pump CABG 3 History of present illness: This is a 80-year-old male patient of Dr. Yuliya Ortiz, with past history of hypertension, hyperlipidemia, persistent atrial flutter/atrial fibrillation, obstructive sleep apnea intolerant to CPAP, morbid obesity, osteoarthritis, urethral stricture requiring straight catheterization, and remote history of PMR rate syndrome. Patient was recently evaluated for episodes of shortness of breath and intermittent chest pain. He underwent a stress test which was mildly abnormal. His cardiogram revealed preserved LV systolic function. Patient had a heart catheterization which showed 75% stenosis of the left main coronary artery, 80% stenosis to the left circumflex coronary artery, and 20% stenosis of the proximal LAD, and a 30% stenosis to his mid LAD, and 10-20% stenosis of his right coronary artery. Due to the findings of the cardiac catheterization recommendation was made for cardiothoracic surgery evaluation and coronary artery bypass grafting. On 11/27/2020 patient underwent three-vessel coronary artery bypass grafting, which was done off pump, and consisting of IRCE to the LAD, SVG to the diagonal, SVG to the posterior lateral distal circumflex with endovascular vein harvest and appendectomy aortic ultrasonography. Patient also had modified Dowling-Maze bilateral pulmonary vein ablation and ligation of the left atrial appendage using a 35 mm AtriCure clip. Of note patient's preop FEV1 was 2.4 to or 80% predicted, with FVC of 3.21 or 76% of predicted, with FEV1 to FVC ratio of 105% consistent with mild restriction. Patient is seen in the postoperative period in the intensive care unit, she is sedated, and intubated on mechanical ventilator, initial vent settings were assist control with a rate of 12, tidal volume 600, FiO2 100% and PEEP of 8. Postoperative blood gases showed pO2 of 310, pCO2 of 50, and pH of 7.32. Subsequently his FiO2 was dropped down to 50%, and his rate was increased to 14. He is currently on lactated Ringer's at 50 ML per hour, Diprivan is at 20 mics per kilo per minute, nitroglycerin is a 5 mics per kilo per minute, and levo fed has just been paused. Patient received 250 mL of Cell Saver Intra-Op, no additional blood work has been transfused, she did receive 2.5 L and crystalloids intraoperatively, currently has blood pressures are mildly low, and his urine output is in the order of 25 ML per hour, patient is going to receive additional volume in the form of 5% albumin, his PA pressure is 52/22, his CVP is 15, cardiac output is 5.5, and index is 2.5. He has one mediastinal left pleural chest tubes that are connected together, with small amount of serosanguineous output, no evidence of air leak, postoperative chest x-ray has been reviewed going diffuse scattered increased lung markings possibly related to underlying pulmonary fibrosis. Consider case with cardiothoracic surgeon who informed us that the lung biopsy has been taken intraoperatively. Review of Systems All systems: negative Constitutional: Denies chills, Denies fever Eyes: denies blurred vision, denies pain Ears, nose, mouth and throat: Denies headache, Denies sore throat Cardiovascular: Reports chest pain, Denies shortness of breath Respiratory: Reports dyspnea, Denies cough Gastrointestinal: Denies abdominal pain, Denies diarrhea, Denies nausea, Denies vomiting Musculoskeletal: Denies myalgias Integumentary: Denies pruritus, Denies rash Neurological: Denies numbness, Denies weakness Psychiatric: Denies anxiety, Denies depression Endocrine: Denies fatigue, Denies weight change Past Medical History Past Medical History: Atrial Fibrillation, Atrial Flutter, Chest Pain / Angina, Hyperlipidemia, Hypertension, Osteoarthritis (OA), Pneumonia, Prostate Disorder, Sleep Apnea/CPAP/BIPAP Additional Past Medical History / Comment(s): self caths since 2009. States 's don't know why he can't urinate. 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 Colonoscopy with polyps removed, bilateral cataract surgery,left arm cyst removed,umbilical hernia Past Anesthesia/Blood Transfusion Reactions: No Reported Reaction Additional Past Anesthesia/Blood Transfusion Reaction / Comment(s): no hx blood transfusion Smoking Status: Former smoker - Past Family History Mother Family Medical History: Cancer Additional Family Medical History / Comment(s): ? colon cancer. History of hydrocephaly with shunt placement. at age 97. Father Family Medical History: No Reported History Medications and Allergies Home Medications Medication Instructions Recorded Confirmed Type Ascorbic Acid [Vitamin C] 500 mg PO HS 01/07/20 11/27/20 History Aspirin [Adult Low Dose Aspirin EC] 81 mg PO HS 01/07/20 11/27/20 History Candesartan Cilexetil [Atacand] 16 mg PO DAILY 01/07/20 11/27/20 History Cholecalciferol [Vitamin D3 (25 5,000 unit PO HS 01/07/20 11/27/20 History Mcg = 1000 Iu)] L.acidoph,Paracasei, B.lactis 1 cap PO DAILY 01/07/20 11/27/20 History [Probiotic] Magnesium Gluconate [Magonate] 500 mg PO DAILY 01/07/20 11/27/20 History Multivitamins, Thera [Multivitamin 1 tab PO HS 01/07/20 11/27/20 History (formulary)] Nitrofurantoin Monohyd/M-Cryst 100 mg PO DAILY 01/07/20 11/27/20 History [Macrobid] Nitroglycerin Sl Tabs [Nitrostat] 0.4 mg SUBLINGUAL Q5M PRN 01/07/20 11/27/20 History Potassium Chloride [Klor-Con 10] 10 meq PO MOWEFR PRN 01/07/20 11/27/20 History Rosuvastatin Calcium [Crestor] 40 mg PO HS 01/07/20 11/27/20 History Ubidecarenone [Co Q-10] 100 mg PO HS 01/07/20 11/27/20 History Apixaban [Eliquis] 5 mg PO BID #60 tab 01/09/20 11/27/20 Rx Ivermectin 3 mg PO Q7D 10/31/20 11/27/20 History [place]-3/Dha/Epa/Fish Oil [Fish Oil 1 each PO HS 10/31/20 11/27/20 History 500 mg Softgel] Quercetin 500 mg PO DAILY 10/31/20 11/27/20 History resveratroL [Resveratrol] 100 mg PO HS 10/31/20 11/27/20 History Allergies Allergy/AdvReac Type Severity Reaction Status Date / Time ciprofloxacin [From Cipro] Allergy muscle Verified 11/27/20 06:11 cramps finasteride [From Proscar] Allergy Unknown Verified 11/27/20 06:11 lisinopril Allergy facial Verified 11/27/20 06:11 swelling sulfamethoxazole Allergy abdominal Verified 11/27/20 06:11 [From Bactrim] pain,diarrhea trimethoprim [From Bactrim] Allergy abdominal Verified 11/27/20 06:11 pain,diarrhea metoprolol AdvReac states Verified 11/27/20 06:11 "b/p went to 60/40,HR 35" Physical Exam Vitals: Vital Signs Temp Pulse Resp BP BP Pulse Ox 11/27/20 06:48 97.0 F L 57 L 18 160/78 153/72 94 L Intake and Output 11/26/20 11/27/20 11/27/20 22:59 06:59 14:59 Intake Total 53.833 Output Total 1000 Balance -946.167 Intake: IV 53 Intake, IV Titration 0.833 Amount Clevidipine Butyrate 25 0.833 mg In Empty Bag 1 bag @ 1 MG/HR 2 mls/hr IV .Q24H [facility] Rx#:[id number] Output: Urine 500 Estimated Blood Loss 500 Other: Weight 96.9 kg GENERAL EXAM: Sedated, intubated, 80-year-old white male, on assist control mode of ventilation, with FiO2 of 50% and PEEP of 8 comfortable in no apparent distress. HEAD: Normocephalic/atraumatic. EYES: Normal reaction of pupils, equal size. Conjunctiva pink, sclera white. NOSE: Clear with pink turbinates. THROAT: No erythema or exudates. NECK: No masses, no JVD, no thyroid enlargement, no adenopathy. CHEST: No chest wall deformity. Symmetrical expansion. Midsternal incision is clean dry and intact, 1 mediastinal left pleural chest tubes connected together, to the same Pleur-evac, with no evidence of air leak, to wall suction, and small amount of sanguinous output in the Pleur-evac LUNGS: Equal air entry with no crackles, wheeze, rhonchi or dullness. CVS: Regular rate and rhythm, normal S1 and S2, no gallops, no murmurs, no rubs ABDOMEN: Soft, nontender. No hepatosplenomegaly, normal bowel sounds, no guarding or rigidity. EXTREMITIES: No clubbing, no edema, no cyanosis, 2+ pulses and upper and lower extremities. Bilateral lower extremities with SCDs on, left leg incisions covered with surgical dressings MUSCULOSKELETAL: Muscle strength and tone normal. SPINE: No scoliosis or deformity SKIN: No rashes CENTRAL NERVOUS SYSTEM: Sedated, intubated. No focal deficits, tone is normal in all 4 extremities. Results - Laboratory Findings CBC and BMP: 11/27/20 12:49 11/27/20 12:49 ABG ABG pH 7.32 (7.35-7.45) L 11/27/20 13:01 ABG pCO2 50 mmHg (35-45) H 11/27/20 13:01 ABG pO2 310 mmHg (83-108) H 11/27/20 13:01 ABG O2 Saturation 99.5 % (94-97) H 11/27/20 13:01 PT/INR, D-dimer PT 11.2 sec (9.0-12.0) 11/27/20 12:49 INR 1.1 (<1.2) 11/27/20 12:49 Abnormal lab findings: Abnormal Labs 11/21/20 11/27/20 11/27/20 11:09 08:44 10:27 RBC Hgb Hct Plt Count Lymphocytes # ABG pH ABG pCO2 ABG pO2 292 H 171 H ABG HCO3 26 H ABG Total CO2 27 H 26 H ABG O2 Saturation 100.0 H 99.5 H ABG Hematocrit ABG Glucose 100 H 133 H Hemoglobin 12.3 L 12.3 L Sodium Chloride Glucose POC Glucose (mg/dL) Calcium Total Protein Albumin Arterial Blood Glucose 100 H 133 H Crossmatch See Detail 11/27/20 11/27/20 11/27/20 11:18 11:43 12:49 RBC 3.71 L Hgb 11.7 L Hct 33.6 L Plt Count 140 L Lymphocytes # 0.9 L ABG pH ABG pCO2 ABG pO2 74 L ABG HCO3 ABG Total CO2 25 H 26 H ABG O2 Saturation 98.3 H ABG Hematocrit 33 L ABG Glucose 120 H 119 H Hemoglobin 11.0 L 10.7 L Sodium Chloride Glucose POC Glucose (mg/dL) Calcium Total Protein Albumin Arterial Blood Glucose 120 H 119 H Crossmatch 11/27/20 11/27/20 11/27/20 12:49 12:50 13:01 RBC Hgb Hct Plt Count Lymphocytes # ABG pH 7.32 L ABG pCO2 50 H ABG pO2 310 H ABG HCO3 26 H ABG Total CO2 27 H ABG O2 Saturation 99.5 H ABG Hematocrit ABG Glucose Hemoglobin Sodium 136 L Chloride 108 H Glucose 120 H POC Glucose (mg/dL) 148 H Calcium 8.1 L Total Protein 5.0 L Albumin 2.7 L Arterial Blood Glucose Crossmatch 11/27/20 14:03 RBC Hgb Hct Plt Count Lymphocytes # ABG pH ABG pCO2 ABG pO2 ABG HCO3 ABG Total CO2 ABG O2 Saturation ABG Hematocrit ABG Glucose Hemoglobin Sodium Chloride Glucose POC Glucose (mg/dL) 151 H Calcium Total Protein Albumin Arterial Blood Glucose Crossmatch - Diagnostic Findings Chest x-ray: report reviewed, image reviewed Assessment and Plan Plan: Assessment: #1. Multivessel coronary artery disease, symptomatic, status post off-pump three-vessel coronary artery bypass grafting with RICE to LAD, SVG to the diagonal, SVG to the posterior lateral distal circumflex, with endovascular vein harvest, modified Dowling maze bilateral pulmonary vein ablation, and ligation of the left atrial appendage on 11/27/2020, postoperative day #0 #2. Suspected pulmonary fibrosis, status post biopsy of the left upper lobe, during the sternotomy, on 11/27/2020 #3. Hypertension #4. Hyperlipidemia #5. Persistent atrial flutter/atrial fibrillation on Eliquis #6. Obstructive sleep apnea, noncompliant with CPAP #7. History of urethral stricture requiring straight catheterization #8. Remote history of smoking, quit smoking 25 years ago #9. 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 Routine postoperative ventilator management Plan: Postoperative blood gases have been reviewed Necessary vent adjustments have been made Continue weaning FiO2 per protocol will proceed with the spontaneous awakening trials, and spontaneous breathing trials Chest x-ray has been reviewed consistent with pulmonary fibrosis Lung biopsy has been taken intraoperatively Otherwise hemodynamically patient is stable Not requiring any vasopressor support right now Continue close hemodynamic monitoring, chest tube output Continue monitoring for arrhythmias Follow-up blood work and chest x-ray in the morning Nebulized bronchodilators 4 times a day and when necessary Incentive spirometer to the bedside after extubation We'll continue to follow in the safe care unit I performed a history & physical examination of the patient and discussed their management with my nurse practitioner, Yane Reis. I reviewed the nurse practitioner's note and agree with the documented findings and plan of care. L denny sounds are positive fordiminished breath sounds. The findings and the impression was discussed with the patient. I attest to the documentation by the nurse practitioner. Time with Patient: Greater than 30
[2020-11-27 15:06] LABS: Glucose,Whole Blood 144 mg/dL (75-99)
[2020-11-27 15:46] LABS: Basophils % (A) 0 %; Eosinophils % (A) 0 %; HCT 31.9 % (39.0-53.0); HGB 11.1 gm/dL (13.0-17.5); Lymphocytes # (A) 0.7 k/uL (1.0-4.8); Lymphocytes % (A) 9 %; MCH 31.5 pg (25.0-35.0); MCHC 34.8 g/dL (31.0-37.0); MCV 90.3 fL (80.0-100.0); Mean Platelet Volume 10.2; Monocytes # (A) 0.5 k/uL (0-1.0); Monocytes % (A) 7 %; Neutrophils # (A) 6.6 k/uL (1.3-7.7); Neutrophils % (A) 83 %; Platelet Count 130 k/uL (150-450); RBC 3.53 m/uL (4.30-5.90); RDW 13.1 % (11.5-15.5); WBC 7.9 k/uL (3.8-10.6)
[2020-11-27] MEDS ORDERED: IPRATROPIUM-ALBUTEROL 3 ML NEB INHALATION SCH (16:00)
[2020-11-27 16:02] LABS: Glucose,Whole Blood 142 mg/dL (75-99)
[2020-11-27 16:28] LABS: ABG Base Excess -1.3 mmol/L; ABG HCO3 24 mmol/L (21-25); ABG Oxygen Saturation 99.5 % (94-97); ABG PCO2 39 mmHg (35-45); ABG PH 7.39 (7.35-7.45); ABG PO2 206 mmHg (83-108); ABG TCO2 25 mmol/L (19-24)
[2020-11-27 17:06] LABS: Glucose,Whole Blood 138 mg/dL (75-99)
[2020-11-27] MEDS: HEPARIN SODIUM,PORCINE/PF 5,000 UNIT/0.5 ML SYRINGE SQ SCH ×2 (17:14→23:05)
[2020-11-27] MEDS: KETOROLAC 15 MG/ML 1 ML VIAL IVP SCH ×2 (17:14→23:05)
[2020-11-27 18:09] LABS: Glucose,Whole Blood 133 mg/dL (75-99)
[2020-11-27 19:03] LABS: Glucose,Whole Blood 131 mg/dL (75-99)
[2020-11-27 19:18] LABS: Basophils % (A) 0 %; Eosinophils % (A) 0 %; HGB 11.1 gm/dL (13.0-17.5); Lymphocytes # (A) 0.4 k/uL (1.0-4.8); Lymphocytes % (A) 6 %; MCH 31.2 pg (25.0-35.0); MCHC 34.6 g/dL (31.0-37.0); MCV 90.2 fL (80.0-100.0); Mean Platelet Volume 9.5; Monocytes # (A) 0.5 k/uL (0-1.0); Monocytes % (A) 7 %; Neutrophils # (A) 6.5 k/uL (1.3-7.7); Neutrophils % (A) 86 %; Platelet Count 136 k/uL (150-450); RBC 3.55 m/uL (4.30-5.90); RDW 13.2 % (11.5-15.5); WBC 7.5 k/uL (3.8-10.6)
[2020-11-27] MEDS: IPRATROPIUM-ALBUTEROL 3 ML NEB INHALATION SCH (19:30)
[2020-11-27] MEDS: ASCORBIC ACID 500 MG TAB PO SCH (19:57)
[2020-11-27] MEDS: CHOLECALCIFEROL 25 MCG (1000 IU) TABLET PO SCH (19:58)
[2020-11-27] MEDS: MULTIVITAMINS, THERA 1 EACH TAB PO SCH (19:58)
[2020-11-27] MEDS: ATORVASTATIN 80 MG TAB PO SCH (19:58)
[2020-11-27 20:12] LABS: Glucose,Whole Blood 133 mg/dL (75-99)
[2020-11-27 21:13] LABS: Glucose,Whole Blood 133 mg/dL (75-99)
[2020-11-27 22:23] LABS: Glucose,Whole Blood 130 mg/dL (75-99)
[2020-11-27 23:27] LABS: Glucose,Whole Blood 126 mg/dL (75-99)
[2020-11-28 00:02] LABS: Glucose,Whole Blood 127 mg/dL (75-99)
[2020-11-28] MEDS ORDERED: HYDROcodone/APAP 5-325MG 1 EACH TAB PO PRN (00:26)
[2020-11-28 01:06] LABS: Glucose,Whole Blood 123 mg/dL (75-99)
[2020-11-28 02:18] LABS: Glucose,Whole Blood 119 mg/dL (75-99)
[2020-11-28] MEDS: HYDROcodone/APAP 5-325MG 1 EACH TAB PO PRN ×4 (03:07→23:22)
[2020-11-28 03:18] LABS: Glucose,Whole Blood 117 mg/dL (75-99)
[2020-11-28 03:57] LABS: Basophils % (A) 0 %; Eosinophils % (A) 0 %; HCT 33.7 % (39.0-53.0); HGB 11.5 gm/dL (13.0-17.5); Lymphocytes # (A) 0.8 k/uL (1.0-4.8); Lymphocytes % (A) 11 %; MCH 31.1 pg (25.0-35.0); MCHC 34.3 g/dL (31.0-37.0); MCV 90.6 fL (80.0-100.0); Mean Platelet Volume 10.5; Monocytes # (A) 0.5 k/uL (0-1.0); Monocytes % (A) 8 %; Neutrophils # (A) 5.6 k/uL (1.3-7.7); Neutrophils % (A) 79 %; Platelet Count 147 k/uL (150-450); RBC 3.72 m/uL (4.30-5.90); RDW 13.5 % (11.5-15.5); WBC 7.1 k/uL (3.8-10.6)
[2020-11-28 04:01] LABS: Glucose,Whole Blood 121 mg/dL (75-99)
[2020-11-28 04:20] LABS: Ionized Calcium 5.2 mg/dL (4.5-5.3)
[2020-11-28 04:31] LABS: ALT 12 U/L (4-49); AST 29 U/L (17-59); African American GFR (CKD) >90 (>60 ml/min/1.73 sqM); Alkaline Phosphatase 47 U/L (38-126); Anion Gap 7 mmol/L; Blood Urea Nitrogen 20 mg/dL (9-20); Calcium 8.7 mg/dL (8.4-10.2); Carbon Dioxide 21 mmol/L (22-30); Chloride 105 mmol/L (98-107); Glucose 115 mg/dL (74-99); Magnesium 2.1 mg/dL (1.6-2.3); Non-African American GFR(CKD) >90 (>60 ml/min/1.73 sqM); Potassium 4.2 mmol/L (3.5-5.1); Sodium 133 mmol/L (137-145); Total Bilirubin 0.8 mg/dL (0.2-1.3); Total Protein 5.3 g/dL (6.3-8.2)
[2020-11-28 05:29] LABS: Glucose,Whole Blood 117 mg/dL (75-99)
[2020-11-28] MEDS: KETOROLAC 15 MG/ML 1 ML VIAL IVP SCH ×4 (06:31→23:25)
--- NOTE | 2020-11-28 06:43 | XR ---
EXAMINATION TYPE: XR chest 1V portable DATE OF EXAM: 11/28/2020 CLINICAL HISTORY: Postopen cardiac surgery progress study. TECHNIQUE: Single AP portable semiupright view of the chest is obtained. COMPARISON: Chest x-ray from one day earlier. FINDINGS: Interval extubation with endotracheal and orogastric tubes. Stable right internal jugular [place] catheter. Stable left sided chest tube and mediastinal drainage catheter. Overlying sternal wires and mediastinal clips along with left atrial appendage clip all redemonstrated. Cardiac silhouette size is stable and upper limits of normal with atherosclerotic aorta. Moderate to advanced chronic parenchymal fibrotic changes bilaterally redemonstrated with increasing bibasilar op acities. No pneumothorax identified. IMPRESSION: Interval extubation. Developing small bilateral pleural effusions and mild interstitial e jennifer on background moderate to advanced chronic parenchymal fibrotic changes.
[2020-11-28 06:50] LABS: Glucose,Whole Blood 119 mg/dL (75-99)
--- NOTE | 2020-11-28 07:32 | P.PN ---
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 POD #1 off-pump coronary artery bypass grafting 3 with left internal mammary artery to the left anterior descending artery, reverse saphenous vein graft to the diagonal artery, reverse saphenous vein graft to posterior lateral distal circumflex, endovascular vein harvest from the left upper calf to the groin, epi-aortic ultrasonography, modified Dow[place] maze bilateral pulmonary vein ablation and ligation of the left atrial appendage with a 35 mm AtriCure clip, electrical cardioversion, biopsy of the left upper lobe of the lung Postoperative acute blood loss anemia and thrombocytopenia, expected post cardiac surgery given hemodilution The patient is currently sitting up in a recliner in the intensive care unit in no acute distress. He was successfully extubated yesterday afternoon at 16:29. States pain is controlled on current medication regimen, denies shortness of breath. Currently in sinus rhythm with first-degree AV block, hemodynamically stable. Remains on 4 L nasal cannula, actively attempting incentive spirometry use and achieving 1250 mL. Right internal jugular [place]/Cordis, right radial arterial line, mediastinal/left pleural chest tubes all remain. No new concerns. Objective - Vital Signs Vital signs: Vital Signs Temp 97.5 F L 11/27/20 18:00 Pulse 75 11/28/20 06:00 Resp 19 11/28/20 06:00 BP 119/71 11/28/20 06:00 Pulse Ox 91 L 11/28/20 06:00 Intake & Output 11/27/20 11/27/20 11/28/20 06:59 18:59 06:59 Intake Total 6258.738 5526.868 Output Total 1632 925 Balance -401.379 423.868 Weight 96.9 kg 102.1 kg Intake: IV 1226 862 ACETAMINOPHEN IV (For NPO 100 50 ) 1,000 mg In Empty Bag 1 bag @ 400 mls/hr IVPB Q6HR [facility] Rx#:[id number] Albumin Human 5% 250 ml 500 250 In Empty Bag 1 bag @ 250 mls/hr IVPB Q1HR PRN Rx#: [id number] CO/CI 160 120 Lactated Ringers 1,000 ml 350 400 @ 50 mls/hr IV .Q20H [facility] Rx#:[id number] Pressure Bags 63 42 Intake, IV Titration 4.621 6.868 Amount Clevidipine Butyrate 25 0.833 mg In Empty Bag 1 bag @ 1 MG/HR 2 mls/hr IV .Q24H [facility] Rx#:[id number] Insulin Regular 100 unit 3.788 6.868 In Sodium Chloride 0.9% 100 ml @ Per Protocol IV .Q0M [facility] Rx#:[id number] Oral 480 Output: Chest Tube Drainage 430 610 Left Pleural/Mediastinal 430 610 Urine 702 315 Estimated Blood Loss 500 Other: Voiding Method Indwelling Catheter Indwelling Catheter ABP, PAP, CO, CI - Last Documented Arterial Blood Pressure 146/54 Pulmonary Artery Pressure 32/15 Cardiac Output 4.6 Cardiac Index 2.1 - Exam CONSTITUTIONAL: Appears comfortable, cooperative, no acute distress RESPIRATORY: Lungs sounds diminished bilaterally. Respirations even, nonlabored. Currently on 4 L nasal cannula with oxygen saturation 94%. Able to achieve 1250 mL on incentive spirometry. Strong productive cough. CARDIOVASCULAR: S1, S2 present. Regular rate and rhythm, sinus rhythm with first-degree AV block on telemetry. Sternum stable. Palpable peripheral pulses bilaterally. No edema present. No calf pain or tenderness noted. Heart hugger in place with patient demonstrating appropriate use. Antiembolism stockings, SCDs present. GASTROINTESTINAL: Abdomen soft, nontender, nondistended. Hypoactive bowel sounds present 4 quadrants. Tolerating clear liquids. Negative flatus GENITOURINARY: Almeida present draining clear, yellow urine. Output overnight 20-30 mL per hour INTEGUMENTARY: Skin is warm and dry with evidence of good perfusion. Anterior chest incision well approximated and covered with dry intact dressing. Lower extremity EVH site well approximated without redness or drainage. NEUROLOGIC: Cranial nerves II through XII intact MUSKULOSKELETAL: Able to move all extremities, strength equal bilaterally PSYCHIATRIC: Alert and oriented to person place and time, appropriate affect, intact judgment and insight INVASIVE LINES AND TUBES: Mediastinal/left pleural chest tubes present and connected to wall suction, no air leaks present, 500 mL serosanguineous drainage overnight, 1090 mL since surgery. Right internal jugular [place]/Cordis, right radial arterial line present. Last CO/CI 4.6/2.1, PA 36/17, CVP 11. - Allied health notes Allied health notes reviewed: nursing - Labs CBC & Chem 7: 11/28/20 03:45 11/28/20 03:45 Labs: Abnormal Lab Results - Last 24 Hours (Table) 11/21/20 11/27/20 11/27/20 Range/Units 11:09 08:44 10:27 RBC (4.30-5.90) m/uL Hgb (13.0-17.5) gm/dL Hct (39.0-53.0) % Plt Count (150-450) k/uL Lymphocytes # (1.0-4.8) k/uL ABG pH (7.35-7.45) ABG pCO2 (35-45) mmHg ABG pO2 292 H 171 H (83-108) mmHg ABG HCO3 26 H (21-25) mmol/L ABG Total CO2 27 H 26 H (19-24) mmol/L ABG O2 Saturation 100.0 H 99.5 H (94-97) % ABG Hematocrit (34.0-46.0) % ABG Glucose 100 H 133 H (75-99) mg/dL Hemoglobin 12.3 L 12.3 L (13.0-17.5) gm/dL Sodium (137-145) mmol/L Chloride (98-107) mmol/L Carbon Dioxide (22-30) mmol/L Glucose (74-99) mg/dL POC Glucose (mg/dL) (75-99) mg/dL Calcium (8.4-10.2) mg/dL Total Protein (6.3-8.2) g/dL Albumin (3.5-5.0) g/dL Arterial Blood Glucose 100 H 133 H (75-99) mg/dL Crossmatch See Detail 11/27/20 11/27/20 11/27/20 Range/Units 11:18 11:43 12:49 RBC 3.71 L (4.30-5.90) m/uL Hgb 11.7 L (13.0-17.5) gm/dL Hct 33.6 L (39.0-53.0) % Plt Count 140 L (150-450) k/uL Lymphocytes # 0.9 L (1.0-4.8) k/uL ABG pH (7.35-7.45) ABG pCO2 (35-45) mmHg ABG pO2 74 L (83-108) mmHg ABG HCO3 (21-25) mmol/L ABG Total CO2 25 H 26 H (19-24) mmol/L ABG O2 Saturation 98.3 H (94-97) % ABG Hematocrit 33 L (34.0-46.0) % ABG Glucose 120 H 119 H (75-99) mg/dL Hemoglobin 11.0 L 10.7 L (13.0-17.5) gm/dL Sodium (137-145) mmol/L Chloride (98-107) mmol/L Carbon Dioxide (22-30) mmol/L Glucose (74-99) mg/dL POC Glucose (mg/dL) (75-99) mg/dL Calcium (8.4-10.2) mg/dL Total Protein (6.3-8.2) g/dL Albumin (3.5-5.0) g/dL Arterial Blood Glucose 120 H 119 H (75-99) mg/dL Crossmatch 11/27/20 11/27/20 11/27/20 Range/Units 12:49 12:50 13:01 RBC (4.30-5.90) m/uL Hgb (13.0-17.5) gm/dL Hct (39.0-53.0) % Plt Count (150-450) k/uL Lymphocytes # (1.0-4.8) k/uL ABG pH 7.32 L (7.35-7.45) ABG pCO2 50 H (35-45) mmHg ABG pO2 310 H (83-108) mmHg ABG HCO3 26 H (21-25) mmol/L ABG Total CO2 27 H (19-24) mmol/L ABG O2 Saturation 99.5 H (94-97) % ABG Hematocrit (34.0-46.0) % ABG Glucose (75-99) mg/dL Hemoglobin (13.0-17.5) gm/dL Sodium 136 L (137-145) mmol/L Chloride 108 H (98-107) mmol/L Carbon Dioxide (22-30) mmol/L Glucose 120 H (74-99) mg/dL POC Glucose (mg/dL) 148 H (75-99) mg/dL Calcium 8.1 L (8.4-10.2) mg/dL Total Protein 5.0 L (6.3-8.2) g/dL Albumin 2.7 L (3.5-5.0) g/dL Arterial Blood Glucose (75-99) mg/dL Crossmatch 11/27/20 11/27/20 11/27/20 Range/Units 14:03 15:05 15:38 RBC 3.53 L (4.30-5.90) m/uL Hgb 11.1 L (13.0-17.5) gm/dL Hct 31.9 L (39.0-53.0) % Plt Count 130 L (150-450) k/uL Lymphocytes # 0.7 L (1.0-4.8) k/uL ABG pH (7.35-7.45) ABG pCO2 (35-45) mmHg ABG pO2 (83-108) mmHg ABG HCO3 (21-25) mmol/L ABG Total CO2 (19-24) mmol/L ABG O2 Saturation (94-97) % ABG Hematocrit (34.0-46.0) % ABG Glucose (75-99) mg/dL Hemoglobin (13.0-17.5) gm/dL Sodium (137-145) mmol/L Chloride (98-107) mmol/L Carbon Dioxide (22-30) mmol/L Glucose (74-99) mg/dL POC Glucose (mg/dL) 151 H 144 H (75-99) mg/dL Calcium (8.4-10.2) mg/dL Total Protein (6.3-8.2) g/dL Albumin (3.5-5.0) g/dL Arterial Blood Glucose (75-99) mg/dL Crossmatch 11/27/20 11/27/20 11/27/20 Range/Units 16:00 16:22 17:05 RBC (4.30-5.90) m/uL Hgb (13.0-17.5) gm/dL Hct (39.0-53.0) % Plt Count (150-450) k/uL Lymphocytes # (1.0-4.8) k/uL ABG pH (7.35-7.45) ABG pCO2 (35-45) mmHg ABG pO2 206 H (83-108) mmHg ABG HCO3 (21-25) mmol/L ABG Total CO2 25 H (19-24) mmol/L ABG O2 Saturation 99.5 H (94-97) % ABG Hematocrit (34.0-46.0) % ABG Glucose (75-99) mg/dL Hemoglobin (13.0-17.5) gm/dL Sodium (137-145) mmol/L Chloride (98-107) mmol/L Carbon Dioxide (22-30) mmol/L Glucose (74-99) mg/dL POC Glucose (mg/dL) 142 H 138 H (75-99) mg/dL Calcium (8.4-10.2) mg/dL Total Protein (6.3-8.2) g/dL Albumin (3.5-5.0) g/dL Arterial Blood Glucose (75-99) mg/dL Crossmatch 11/27/20 11/27/20 11/27/20 Range/Units 18:08 19:02 19:09 RBC 3.55 L (4.30-5.90) m/uL Hgb 11.1 L (13.0-17.5) gm/dL Hct 32.0 L (39.0-53.0) % Plt Count 136 L (150-450) k/uL Lymphocytes # 0.4 L (1.0-4.8) k/uL ABG pH (7.35-7.45) ABG pCO2 (35-45) mmHg ABG pO2 (83-108) mmHg ABG HCO3 (21-25) mmol/L ABG Total CO2 (19-24) mmol/L ABG O2 Saturation (94-97) % ABG Hematocrit (34.0-46.0) % ABG Glucose (75-99) mg/dL Hemoglobin (13.0-17.5) gm/dL Sodium (137-145) mmol/L Chloride (98-107) mmol/L Carbon Dioxide (22-30) mmol/L Glucose (74-99) mg/dL POC Glucose (mg/dL) 133 H 131 H (75-99) mg/dL Calcium (8.4-10.2) mg/dL Total Protein (6.3-8.2) g/dL Albumin (3.5-5.0) g/dL Arterial Blood Glucose (75-99) mg/dL Crossmatch 11/27/20 11/27/20 11/27/20 Range/Units 20:10 21:01 22:08 RBC (4.30-5.90) m/uL Hgb (13.0-17.5) gm/dL Hct (39.0-53.0) % Plt Count (150-450) k/uL Lymphocytes # (1.0-4.8) k/uL ABG pH (7.35-7.45) ABG pCO2 (35-45) mmHg ABG pO2 (83-108) mmHg ABG HCO3 (21-25) mmol/L ABG Total CO2 (19-24) mmol/L ABG O2 Saturation (94-97) % ABG Hematocrit (34.0-46.0) % ABG Glucose (75-99) mg/dL Hemoglobin (13.0-17.5) gm/dL Sodium (137-145) mmol/L Chloride (98-107) mmol/L Carbon Dioxide (22-30) mmol/L Glucose (74-99) mg/dL POC Glucose (mg/dL) 133 H 133 H 130 H (75-99) mg/dL Calcium (8.4-10.2) mg/dL Total Protein (6.3-8.2) g/dL Albumin (3.5-5.0) g/dL Arterial Blood Glucose (75-99) mg/dL Crossmatch 11/27/20 11/28/20 11/28/20 Range/Units 23:15 00:00 01:05 RBC (4.30-5.90) m/uL Hgb (13.0-17.5) gm/dL Hct (39.0-53.0) % Plt Count (150-450) k/uL Lymphocytes # (1.0-4.8) k/uL ABG pH (7.35-7.45) ABG pCO2 (35-45) mmHg ABG pO2 (83-108) mmHg ABG HCO3 (21-25) mmol/L ABG Total CO2 (19-24) mmol/L ABG O2 Saturation (94-97) % ABG Hematocrit (34.0-46.0) % ABG Glucose (75-99) mg/dL Hemoglobin (13.0-17.5) gm/dL Sodium (137-145) mmol/L Chloride (98-107) mmol/L Carbon Dioxide (22-30) mmol/L Glucose (74-99) mg/dL POC Glucose (mg/dL) 126 H 127 H 123 H (75-99) mg/dL Calcium (8.4-10.2) mg/dL Total Protein (6.3-8.2) g/dL Albumin (3.5-5.0) g/dL Arterial Blood Glucose (75-99) mg/dL Crossmatch 11/28/20 11/28/20 11/28/20 Range/Units 02:10 03:05 03:45 RBC 3.72 L (4.30-5.90) m/uL Hgb 11.5 L (13.0-17.5) gm/dL Hct 33.7 L (39.0-53.0) % Plt Count 147 L (150-450) k/uL Lymphocytes # 0.8 L (1.0-4.8) k/uL ABG pH (7.35-7.45) ABG pCO2 (35-45) mmHg ABG pO2 (83-108) mmHg ABG HCO3 (21-25) mmol/L ABG Total CO2 (19-24) mmol/L ABG O2 Saturation (94-97) % ABG Hematocrit (34.0-46.0) % ABG Glucose (75-99) mg/dL Hemoglobin (13.0-17.5) gm/dL Sodium (137-145) mmol/L Chloride (98-107) mmol/L Carbon Dioxide (22-30) mmol/L Glucose (74-99) mg/dL POC Glucose (mg/dL) 119 H 117 H (75-99) mg/dL Calcium (8.4-10.2) mg/dL Total Protein (6.3-8.2) g/dL Albumin (3.5-5.0) g/dL Arterial Blood Glucose (75-99) mg/dL Crossmatch 11/28/20 11/28/20 11/28/20 Range/Units 03:45 03:49 05:17 RBC (4.30-5.90) m/uL Hgb (13.0-17.5) gm/dL Hct (39.0-53.0) % Plt Count (150-450) k/uL Lymphocytes # (1.0-4.8) k/uL ABG pH (7.35-7.45) ABG pCO2 (35-45) mmHg ABG pO2 (83-108) mmHg ABG HCO3 (21-25) mmol/L ABG Total CO2 (19-24) mmol/L ABG O2 Saturation (94-97) % ABG Hematocrit (34.0-46.0) % ABG Glucose (75-99) mg/dL Hemoglobin (13.0-17.5) gm/dL Sodium 133 L (137-145) mmol/L Chloride (98-107) mmol/L Carbon Dioxide 21 L (22-30) mmol/L Glucose 115 H (74-99) mg/dL POC Glucose (mg/dL) 121 H 117 H (75-99) mg/dL Calcium (8.4-10.2) mg/dL Total Protein 5.3 L (6.3-8.2) g/dL Albumin 3.0 L (3.5-5.0) g/dL Arterial Blood Glucose (75-99) mg/dL Crossmatch 11/28/20 Range/Units 06:48 RBC (4.30-5.90) m/uL Hgb (13.0-17.5) gm/dL Hct (39.0-53.0) % Plt Count (150-450) k/uL Lymphocytes # (1.0-4.8) k/uL ABG pH (7.35-7.45) ABG pCO2 (35-45) mmHg ABG pO2 (83-108) mmHg ABG HCO3 (21-25) mmol/L ABG Total CO2 (19-24) mmol/L ABG O2 Saturation (94-97) % ABG Hematocrit (34.0-46.0) % ABG Glucose (75-99) mg/dL Hemoglobin (13.0-17.5) gm/dL Sodium (137-145) mmol/L Chloride (98-107) mmol/L Carbon Dioxide (22-30) mmol/L Glucose (74-99) mg/dL POC Glucose (mg/dL) 119 H (75-99) mg/dL Calcium (8.4-10.2) mg/dL Total Protein (6.3-8.2) g/dL Albumin (3.5-5.0) g/dL Arterial Blood Glucose (75-99) mg/dL Crossmatch Microbiology - Last 24 Hours (Table) 11/27/20 12:02 Acid Fast Bacilli Culture - Preliminary Lung - Left Upper Lobe 11/27/20 12:02 Fungal Culture - Preliminary Lung - Left Upper Lobe - Imaging and Cardiology Chest x-ray: image reviewed Assessment and Plan Assessment: 1. 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 Atrial flutter present on entrance to the operating room, status post electrical cardioversion 3. Pneumopathy with suspected pulmonary fibrosis, status post biopsy of the left upper lobe of the lung 4. History of hypertension 5. Hyperlipidemia, treated, cholesterol 141, LDL 82 6. Paroxysmal atrial flutter 7. Paroxysmal atrial fibrillation on Eliquis for anticoagulation, modified Dowling maze, ligation of the left atrial appendage 8. Previous tobacco dependence, preoperative FEV1 80% of predicted 9. Obstructive sleep apnea without home CPAP use 10. Urethral stricture requiring straight catheterization 11. Obesity 12. Osteoarthritis 13. Remote history of pneumonia 14. Guillain-[place] after flu vaccine in the past, remains unvaccinated against Covid 15. Postoperative acute blood loss anemia and thrombocytopenia, expected post cardiac surgery given hemodilution Plan: 1. Continue aspirin, statin, Plavix, low-dose beta brandy. Will increase beta brandy carefully as tolerated as patient did have documented hypotension and bradycardia due to Lopressor in the past 2. Will initiate hydralazine for afterload reduction 3. Discontinue IV nitro 4. Wean O2 as tolerated. Encourage incentive spirometry use 10 times every hour while awake. Bronchodilators per pulmonology 5. Increase activity, ambulate as tolerated. PT/OT/cardiac rehab consulted 6. Will monitor daily labs and x-rays. Electrolyte replacement per protocol. 7. GI/DVT prophylaxis 8. Pain control with current medication regimen 9. Insulin management per primary care service. Patient is not diabetic, preoperative hemoglobin A1c 5.4%, however he does need tight blood sugar control to promote sternal union and to prevent infection 10. Discontinue [place]. Connect Cordis to continuous CVP monitoring 11. Continue mediastinal/left chest tubes, [place], arterial line for another 24 hours 12. Continue Almeida catheter for another 24 hours for strict accurate intake and output. Daily weights 13. More recommendations to follow based on patient's progress Time with Patient: Greater than 30
[2020-11-28] MEDS: IPRATROPIUM-ALBUTEROL 3 ML NEB INHALATION SCH ×4 (07:49→19:53)
[2020-11-28 08:16] LABS: Glucose,Whole Blood 121 mg/dL (75-99)
[2020-11-28] MEDS: ASPIRIN 325 MG TAB PO SCH (08:32)
[2020-11-28] MEDS: CLOPIDOGREL 75 MG TAB PO SCH ×2 (08:32→08:48)
[2020-11-28] MEDS: MAGNESIUM OXIDE 400 MG TAB PO SCH (08:33)
[2020-11-28] MEDS: METOPROLOL TARTRATE 12.5 MG TAB PO SCH ×2 (08:34→20:59)
[2020-11-28] MEDS: HEPARIN SODIUM,PORCINE/PF 5,000 UNIT/0.5 ML SYRINGE SQ SCH ×3 (08:34→23:25)
[2020-11-28] MEDS: hydrALAZINE HCL 25 MG TAB PO SCH ×3 (08:34→23:25)
[2020-11-28] MEDS ORDERED: PANTOPRAZOLE 40 MG/10 ML VIAL IVP SCH (09:00)
[2020-11-28] MEDS ORDERED: bisacodyL 10 MG SUPP RECTAL PRN (09:00)
[2020-11-28] MEDS ORDERED: ATORVASTATIN 40 MG TAB PO SCH (09:00)
--- NOTE | 2020-11-28 09:30 | P.CRDCN ---
History of Present Illness History of present illness: HISTORY OF PRESENTING ILLNESS This is a pleasant 80-year-old male past medical history significant for paroxysmal atrial fibrillation on eliquis, hypertension, dyslipidemia, sleep apnea, suspected pulmonary fibrosis and arthritis. He follows in the office with Dr. Schwartz. We have been asked to see in consultation for cardiac care post op CABG. He underwent RICE-LAD, SVG-diagonal branch and posterior circumflex, modified MAZE, cardioversion and lung biopsy yesterday with Dr. Clarke. He is seen and examined sitting up in the recliner. He is breathing stable with some mild surgical site pain with no anginal like symptoms. He denies dizziness or palpitations. He has right IJ swan/cordis, right radial art line, mediastinal chest tube and left pleural chest tube in place. Chest xray from this morning revealed developing small b/l pleural effusions and mild interstitial edema with underlying moderate to advanced chronic parenchymal fibrotic changes. Laboratory data reviewed, WBC 7.1, hgb 11.5, plt 147, sodium 133, potassium 4.2, creatinine 0.67 and magnesium 2.1. Currently maintained on aspirin 325 mg daily, atorvastatin 80 mg daily, plavix 75 mg daily, hydralazine 25 mg TID and lopressor 12.5 mg BID. Pre-op echo revealed preserved LV systolic function with EF 55-60%. REVIEW OF SYSTEMS At the time of my exam: CONSTITUTIONAL: Denies fever or chills. CARDIOVASCULAR: Denies chest pain, shortness of breath, orthopnea, PND or palpitations. RESPIRATORY: Denies cough. GASTROINTESTINAL: Denies abdominal pain, diarrhea, constipation, nausea or vomiting. MUSCULOSKELETAL: Denies myalgias. NEUROLOGIC: Denies numbness, tingling, headacbe or weakness. ENDOCRINE: Denies fatigue, weight change, polydipsia or polyurina. GENITOURINARY: Denies burning, hematuria or urgency with micturation. HEMATOLOGIC: Denies history of anemia or bleeding. PHYSICAL EXAMINATION Blood pressure 139/51 heart rate 72 afebrile and maintaining oxygen saturation on nasal cannula CVP 9, PA pressure 30/14 cardiac output 4.5. CONSTITUTIONAL: No apparent distress. HEENT: Head is normocephalic. Pupils are equal, round. Sclerae anicteric. Mucous membranes of the mouth are moist. No JVD. No carotid bruit. Right IJ in place. CHEST EXAMINATION: Lungs are clear to auscultation. No chest wall tenderness is noted on palpation or with deep breathing. Mediastinal and left chest tube in place. Heart hugger in place. Sternal dressing in place. HEART EXAMINATION: Regular rate and rhythm. S1, S2 heard. No murmurs, gallops or rub. ABDOMEN: Soft, nontender. Positive bowel sounds. EXTREMITIES: 2+ peripheral pulses, no lower extremity edema and no calf tenderness. Right radial art line in place. NEUROLOGIC EXAMINATION: Patient is awake, alert and oriented x3. ASSESSMENT Coronary artery disease s/p bypass grafting Paroxysmal atrial fibrillation, currently maintaining SR Hypertension Dyslipidemia Sleep apnea PLAN Continue current medical regimen. Surgical management per CT surgery team. Encourage incentive spirometer use around the clock while awake. Increase activity and ambulation as tolerated. Thank you kindly for this consultation. Nurse Practitioner note has been reviewed, I agree with a documented findings and plan of care. Patient was seen and examined. Past Medical History Past Medical History: Atrial Fibrillation, Atrial Flutter, Chest Pain / Angina, Hyperlipidemia, Hypertension, Osteoarthritis (OA), Pneumonia, Prostate Disorder, Sleep Apnea/CPAP/BIPAP Additional Past Medical History / Comment(s): self caths since [address]. [address]s don't know why he can't urinate. Had Guillan-[place]' in mid 1970's, occasional SOB, 2019 Coronary artery calcium test-2800 score,no cpap History of Any Multi-Drug Resistant Organisms: None Reported Past Surgical History: Heart Catheterization, Hernia Repair, Tonsillectomy Additional Past Surgical History / Comment(s): Surgery for ureteral strictures. Colonoscopy with polyps removed, bilateral cataract surgery,left arm cyst removed,umbilical hernia Past Anesthesia/Blood Transfusion Reactions: No Reported Reaction Additional Past Anesthesia/Blood Transfusion Reaction / Comment(s): no hx blood transfusion Smoking Status: Former smoker - Past Family History Mother Family Medical History: Cancer Additional Family Medical History / Comment(s): ? colon cancer. History of hydrocephaly with shunt placement. at age 97. Father Family Medical History: No Reported History Medications and Allergies Home Medications Medication Instructions Recorded Confirmed Type Ascorbic Acid [Vitamin C] 500 mg PO HS 01/07/20 11/27/20 History Aspirin [Adult Low Dose Aspirin EC] 81 mg PO HS 01/07/20 11/27/20 History Candesartan Cilexetil [Atacand] 16 mg PO DAILY 01/07/20 11/27/20 History Cholecalciferol [Vitamin D3 (25 5,000 unit PO HS 01/07/20 11/27/20 History Mcg = 1000 Iu)] L.acidoph,Paracasei, B.lactis 1 cap PO DAILY 01/07/20 11/27/20 History [Probiotic] Magnesium Gluconate [Magonate] 500 mg PO DAILY 01/07/20 11/27/20 History Multivitamins, Thera [Multivitamin 1 tab PO HS 01/07/20 11/27/20 History (formulary)] Nitrofurantoin Monohyd/M-Cryst 100 mg PO DAILY 01/07/20 11/27/20 History [Macrobid] Nitroglycerin Sl Tabs [Nitrostat] 0.4 mg SUBLINGUAL Q5M PRN 01/07/20 11/27/20 History Potassium Chloride [Klor-Con 10] 10 meq PO MOWEFR PRN 01/07/20 11/27/20 History Rosuvastatin Calcium [Crestor] 40 mg PO HS 01/07/20 11/27/20 History Ubidecarenone [Co Q-10] 100 mg PO HS 01/07/20 11/27/20 History Apixaban [Eliquis] 5 mg PO BID #60 tab 01/09/20 11/27/20 Rx Ivermectin 3 mg PO Q7D 10/31/20 11/27/20 History [place]-3/Dha/Epa/Fish Oil [Fish Oil 1 each PO HS 10/31/20 11/27/20 History 500 mg Softgel] Quercetin 500 mg PO DAILY 10/31/20 11/27/20 History resveratroL [Resveratrol] 100 mg PO HS 10/31/20 11/27/20 History Allergies Allergy/AdvReac Type Severity Reaction Status Date / Time ciprofloxacin [From Cipro] Allergy muscle Verified 11/27/20 06:11 cramps finasteride [From Proscar] Allergy Unknown Verified 11/27/20 06:11 lisinopril Allergy facial Verified 11/27/20 06:11 swelling sulfamethoxazole Allergy abdominal Verified 11/27/20 06:11 [From Bactrim] pain,diarrhea trimethoprim [From Bactrim] Allergy abdominal Verified 11/27/20 06:11 pain,diarrhea metoprolol AdvReac states Verified 11/27/20 06:11 "b/p went to 60/40,HR 35" Physical Exam Vitals: Vital Signs Temp Pulse Resp BP Pulse Ox 11/28/20 08:01 70 11/28/20 08:00 99.0 F 68 20 143/72 98 11/28/20 07:49 68 11/28/20 07:00 68 21 123/63 93 L 11/28/20 06:00 75 19 119/71 91 L 11/28/20 05:00 64 17 92 L 11/28/20 04:00 64 19 96 11/28/20 03:00 65 14 94 L 11/28/20 02:00 67 13 97 11/28/20 01:00 70 13 115/61 97 11/28/20 00:00 70 16 97 11/27/20 23:00 71 12 94 L 11/27/20 22:00 71 20 94 L 11/27/20 21:30 71 18 94 L 11/27/20 21:00 71 15 115/61 94 L 11/27/20 20:30 70 14 95 11/27/20 20:00 73 13 119/60 96 11/27/20 19:42 71 11/27/20 19:31 65 11/27/20 19:30 65 19 94 L 11/27/20 19:00 63 16 100/51 89 L 11/27/20 18:45 64 18 90 L 11/27/20 18:30 65 23 97 11/27/20 18:15 64 30 H 95 11/27/20 18:00 97.5 F L 63 15 96 11/27/20 17:45 64 15 96 11/27/20 17:30 64 12 96 11/27/20 17:15 65 13 96 11/27/20 17:00 66 17 95 11/27/20 16:45 71 21 85 L 11/27/20 16:30 67 13 97 11/27/20 16:15 67 16 97 11/27/20 16:00 98.2 F 69 14 97 11/27/20 15:45 66 15 97 11/27/20 15:30 67 15 97 11/27/20 15:22 67 11/27/20 15:15 97.2 F L 67 13 98 11/27/20 15:06 66 11/27/20 15:00 70 33 H 99 11/27/20 14:45 68 14 99 11/27/20 14:30 65 15 100 11/27/20 14:15 67 14 100 11/27/20 14:00 70 16 97 11/27/20 13:45 97.0 F L 62 14 85/48 100 11/27/20 13:30 65 14 91/50 99 11/27/20 13:15 63 12 100 11/27/20 13:00 67 13 100 11/27/20 12:45 96.6 F L 66 16 100 11/27/20 12:34 65 15 99 Intake and Output 11/27/20 11/28/20 11/28/20 22:59 06:59 14:59 Intake Total 1057.788 870.868 92.55 Output Total 570 720 70 Balance 487.788 150.868 22.55 Intake: IV 1054 384 66 ACETAMINOPHEN IV (For NPO 50 ) 1,000 mg In Empty Bag 1 bag @ 400 mls/hr IVPB Q6HR [facility] Rx#:[id number] Albumin Human 5% 250 ml 500 In Empty Bag 1 bag @ 250 mls/hr IVPB Q1HR PRN Rx#: [id number] CO/CI 150 60 10 Lactated Ringers 1,000 ml 350 250 50 @ 20 mls/hr IV .Q24H [facility] Rx#:[id number] Pressure Bags 54 24 6 Intake, IV Titration 3.788 6.868 26.55 Amount Insulin Regular 100 unit 3.788 6.868 In Sodium Chloride 0.9% 100 ml @ Per Protocol IV .Q0M [facility] Rx#:[id number] Nitroglycerin-D5w Pmx 50 26.55 mg In Dextrose/Water 1 250ml.bag @ 5 MCG/MIN 1.5 mls/hr IV .Q24H [facility] Rx#: [id number] Oral 480 Output: Chest Tube Drainage 360 490 30 Left Pleural/Mediastinal 360 490 30 Urine 210 230 40 Other: Voiding Method Indwelling Catheter Indwelling Catheter Weight 102.1 kg ABP, PAP, CO, CI - Last 8 Hours Arterial Blood Pressure 146/52 Arterial Blood Pressure 134/48 Arterial Blood Pressure 146/54 Arterial Blood Pressure 108/43 Arterial Blood Pressure 123/48 Arterial Blood Pressure 123/47 Arterial Blood Pressure 131/50 Pulmonary Artery Pressure 25/12 Pulmonary Artery Pressure 28/16 Pulmonary Artery Pressure 32/15 Pulmonary Artery Pressure 41/15 Pulmonary Artery Pressure 39/16 Pulmonary Artery Pressure 38/16 Pulmonary Artery Pressure 42/17 Cardiac Output 4.5 Cardiac Output 4.6 Cardiac Output 4.6 Cardiac Index 2.1 Cardiac Index 2.1 Cardiac Index 2.1 Results 11/28/20 03:45 11/28/20 03:45 Cardiac Enzymes 11/27/20 11/28/20 Range/Units 12:49 03:45 AST 25 29 (17-59) U/L Coagulation 11/27/20 Range/Units 12:49 PT 11.2 (9.0-12.0) sec APTT 25.1 (22.0-30.0) sec CBC 11/27/20 11/27/20 11/27/20 Range/Units 12:49 15:38 19:09 WBC 7.5 7.9 7.5 (3.8-10.6) k/uL RBC 3.71 L 3.53 L 3.55 L (4.30-5.90) m/uL Hgb 11.7 L 11.1 L 11.1 L (13.0-17.5) gm/dL Hct 33.6 L 31.9 L 32.0 L (39.0-53.0) % Plt Count 140 L 130 L 136 L (150-450) k/uL 11/28/20 Range/Units 03:45 WBC 7.1 (3.8-10.6) k/uL RBC 3.72 L (4.30-5.90) m/uL Hgb 11.5 L (13.0-17.5) gm/dL Hct 33.7 L (39.0-53.0) % Plt Count 147 L (150-450) k/uL Comprehensive Metabolic Panel 11/27/20 11/28/20 Range/Units 12:49 03:45 Sodium 136 L 133 L (137-145) mmol/L Potassium 3.8 4.2 (3.5-5.1) mmol/L Chloride 108 H 105 (98-107) mmol/L Carbon Dioxide 23 21 L (22-30) mmol/L BUN 19 20 (9-20) mg/dL Creatinine 0.67 0.67 (0.66-1.25) mg/dL Glucose 120 H 115 H (74-99) mg/dL Calcium 8.1 L 8.7 (8.4-10.2) mg/dL AST 25 29 (17-59) U/L ALT 12 12 (4-49) U/L Alkaline Phosphatase 52 47 (38-126) U/L Total Protein 5.0 L 5.3 L (6.3-8.2) g/dL Albumin 2.7 L 3.0 L (3.5-5.0) g/dL Current Medications Generic Name Dose Route Start Last Admin Trade Name Freq PRN Reason Stop Dose Admin Hydrocodone Bitart/Acetaminophen 2 each 11/28/20 00:26 Hydrocodone/Apap 5-325mg 1 Each Tab PO Q4HR PRN Severe Pain Hydrocodone Bitart/Acetaminophen 1 each 11/28/20 00:26 11/28/20 03:51 Hydrocodone/Apap 5-325mg 1 Each Tab PO 1 each Q4HR PRN Administration Moderate Pain Albuterol/Ipratropium 3 ml 11/27/20 12:53 Ipratropium-Albuterol 3 Ml Neb INHALATION RT-Q2H PRN Shortness Of Breath Or Wheezing Albuterol/Ipratropium 3 ml 11/27/20 20:00 11/28/20 07:49 Ipratropium-Albuterol 3 Ml Neb INHALATION 3 ml RT-QID [facility] Administration Ascorbic Acid 500 mg 11/27/20 21:00 11/27/20 19:57 Ascorbic Acid 500 Mg Tab PO 500 mg HS [facility] Administration Aspirin 325 mg 11/28/20 09:00 11/28/20 08:32 Aspirin 325 Mg Tab PO 325 mg DAILY [facility] Administration Atorvastatin Calcium 80 mg 11/27/20 21:00 11/27/20 19:58 Atorvastatin 80 Mg Tab PO 80 mg HS [facility] Administration Benzocaine/Menthol 1 each 11/27/20 12:53 Benzocaine/Menthol Lozeng 1 Each Lozenge MUCOUS MEM Q2H PRN Sore Throat Bisacodyl 10 mg 11/28/20 09:00 Bisacodyl 10 Mg Supp RECTAL DAILY PRN Constipation Cholecalciferol 125 mcg 11/27/20 21:00 11/27/20 19:58 Cholecalciferol 25 Mcg (1000 Iu) Tablet PO 125 mcg HS [facility] Administration Clopidogrel Bisulfate 75 mg 11/28/20 09:00 11/28/20 08:48 Clopidogrel 75 Mg Tab PO 75 mg DAILY [facility] Administration Heparin Sodium (Porcine) 5,000 unit 11/27/20 16:00 11/28/20 08:34 Heparin Sodium,Porcine/Pf 5,000 Unit/0.5 Ml Syringe SQ 5,000 unit Q8HR [facility] Administration Hydralazine HCl 25 mg 11/28/20 08:00 11/28/20 08:34 Hydralazine Hcl 25 Mg Tab PO 25 mg Q8HR [facility] Administration Amiodarone HCl 150 mg/ 103 mls @ 618 mls/hr 11/27/20 12:53 Dextrose/Water IV .Q10M PRN A.FIB/FLUTTER Protocol Amiodarone HCl 360 mg/ 207.2 mls @ 34.533 mls/hr 11/27/20 12:53 Dextrose/Water IV .Q6H PRN A.FIB/FLUTTER Protocol 1 MG/MIN Amiodarone HCl 450 mg/ 250 mls @ 16.667 mls/hr 11/27/20 12:53 Dextrose/Water IV .Q15H PRN A.FIB/FLUTTER Protocol 0.5 MG/MIN Albumin Human 250 ml/ IV 250 mls @ 250 mls/hr 11/27/20 12:53 11/27/20 18:55 Solution IVPB 11/29/20 12:54 250 mls/hr Q1HR PRN Administration For Volume Lactated Ringer's 1,000 mls @ 20 mls/hr 11/27/20 12:53 11/27/20 13:26 Lactated Ringers IV 50 mls/hr .Q24H [facility] Administration Cefazolin Sodium 2 gm/ Sodium 50 mls @ 100 mls/hr 11/27/20 17:00 11/28/20 09:05 Chloride IVPB 11/28/20 09:29 100 mls/hr Q8H [facility] Administration Calcium Gluconate 2 gm/ Sodium 120 mls @ 100 mls/hr 11/27/20 12:53 Chloride IVPB 12/26/20 12:54 ONCE PRN Ionized Calcium less than 4.4 Insulin Human Regular 100 unit 101 mls @ 0 mls/hr 11/27/20 12:53 11/28/20 01:00 / Sodium Chloride IV 0.5 units/hr .Q0M [facility] 0.505 mls/hr Titration Protocol Per Protocol Insulin Aspart 0 unit 11/28/20 12:30 Insulin Aspart (Novolog) 100 Unit/Ml Vial SQ ACHS [facility] Protocol Ketorolac Tromethamine 15 mg 11/27/20 18:00 11/28/20 06:31 Ketorolac 15 Mg/Ml 1 Ml Vial IVP 12/02/20 18:01 15 mg Q6HR [facility] Administration Magnesium Hydroxide 2,400 mg 11/28/20 09:00 Magnesium Hydroxide 2,400 Mg/10 Ml Cup PO BID PRN Constipation Magnesium Oxide 400 mg 11/28/20 09:00 11/28/20 08:33 Magnesium Oxide 400 Mg Tab PO 400 mg DAILY [facility] Administration Metoclopramide HCl 10 mg 11/27/20 12:53 Metoclopramide 5 Mg/Ml 2 Ml Vial IVP Q4H PRN Nausea And Vomiting Metoprolol Tartrate 12.5 mg 11/28/20 09:00 11/28/20 08:34 Metoprolol Tartrate 12.5 Mg Tab PO 12.5 mg BID [facility] Administration Miscellaneous Information 1 each 11/27/20 12:53 Magnesium Replacement Protocol 1 Each Misc MISCELLANE DAILY PRN Per Protocol Protocol Miscellaneous Information 1 each 11/27/20 12:53 Potassium Replacement Protocol 1 Each Misc MISCELLANE DAILY PRN Per Protocol Protocol Miscellaneous Information 1 each 11/27/20 12:53 Phosphorus Replacement Protoco 1 Each Misc MISCELLANE DAILY PRN Per Protocol Protocol Multivitamins 1 each 11/27/20 21:00 11/27/20 19:58 Multivitamins, Thera 1 Each Tab PO 1 each HS [facility] Administration Ondansetron HCl 4 mg 11/27/20 12:53 11/28/20 05:12 Ondansetron 4 Mg/2 Ml Vial IVP 4 mg Q6HR PRN Administration Nausea And Vomiting Pantoprazole Sodium 40 mg 11/28/20 09:00 11/28/20 08:35 Pantoprazole 40 Mg/10 Ml Vial IVP 11/28/20 10:00 40 mg DAILY [facility] Administration Pantoprazole Sodium 40 mg 11/29/20 07:30 Pantoprazole 40 Mg Tablet PO [id number] [facility] Senna/Docusate Sodium 2 each 11/28/20 21:00 Sennosides-Docusate Sodium 1 Each Tab PO HS [facility] Sodium Chloride 10 ml 11/27/20 21:00 11/28/20 08:35 Sodium Chloride 0.9% Flush 10 Ml Syringe IV 10 ml BID [facility] Administration Intake and Output 11/27/20 11/28/20 11/28/20 22:59 06:59 14:59 Intake Total 1057.788 870.868 92.55 Output Total 570 720 70 Balance 487.788 150.868 22.55 Intake: IV 1054 384 66 ACETAMINOPHEN IV (For NPO 50 ) 1,000 mg In Empty Bag 1 bag @ 400 mls/hr IVPB Q6HR [facility] Rx#:[id number] Albumin Human 5% 250 ml 500 In Empty Bag 1 bag @ 250 mls/hr IVPB Q1HR PRN Rx#: [id number] CO/CI 150 60 10 Lactated Ringers 1,000 ml 350 250 50 @ 20 mls/hr IV .Q24H [facility] Rx#:[id number] Pressure Bags 54 24 6 Intake, IV Titration 3.788 6.868 26.55 Amount Insulin Regular 100 unit 3.788 6.868 In Sodium Chloride 0.9% 100 ml @ Per Protocol IV .Q0M [facility] Rx#:[id number] Nitroglycerin-D5w Pmx 50 26.55 mg In Dextrose/Water 1 250ml.bag @ 5 MCG/MIN 1.5 mls/hr IV .Q24H [facility] Rx#: [id number] Oral 480 Output: Chest Tube Drainage 360 490 30 Left Pleural/Mediastinal 360 490 30 Urine 210 230 40 Other: Voiding Method Indwelling Catheter Indwelling Catheter Weight 102.1 kg 11/28/20 03:45 11/28/20 03:45
[2020-11-28 11:34] LABS: Glucose,Whole Blood 121 mg/dL (75-99)
--- NOTE | 2020-11-28 11:43 | P.PN ---
Subjective Progress Note Date: 11/28/20 Principal diagnosis: Status post off-pump CABG 3 postoperative day #1 This is a 80-year-old male patient of Dr. Yuliya Ortiz, with past history of hypertension, hyperlipidemia, persistent atrial flutter/atrial fibrillation, obstructive sleep apnea intolerant to CPAP, morbid obesity, osteoarthritis, urethral stricture requiring straight catheterization, and remote history of PMR rate syndrome. Patient was recently evaluated for episodes of shortness of breath and intermittent chest pain. He underwent a stress test which was mildly abnormal. His cardiogram revealed preserved LV systolic function. Patient had a heart catheterization which showed 75% stenosis of the left main coronary artery, 80% stenosis to the left circumflex coronary artery, and 20% stenosis of the proximal LAD, and a 30% stenosis to his mid LAD, and 10-20% stenosis of his right coronary artery. Due to the findings of the cardiac catheterization recommendation was made for cardiothoracic surgery evaluation and coronary artery bypass grafting. On 11/27/2020 patient underwent three-vessel coronary artery bypass grafting, which was done off pump, and consisting of RICE to the LAD, SVG to the diagonal, SVG to the posterior lateral distal circumflex with endovascular vein harvest and appendectomy aortic ultrasonography. Patient also had modified Dowling-Maze bilateral pulmonary vein ablation and ligation of the left atrial appendage using a 35 mm AtriCure clip. Of note patient's preop FEV1 was 2.4 to or 80% predicted, with FVC of 3.21 or 76% of predicted, with FEV1 to FVC ratio of 105% consistent with mild restriction. Patient is seen in the postoperative period in the intensive care unit, she is sedated, and intubated on mechanical ventilator, initial vent settings were assist control with a rate of 12, tidal volume 600, FiO2 100% and PEEP of 8. Postoperative blood gases showed pO2 of 310, pCO2 of 50, and pH of 7.32. Subsequently his FiO2 was dropped down to 50%, and his rate was increased to 14. He is currently on lactated Ringer's at 50 ML per hour, Diprivan is at 20 mics per kilo per minute, nitroglycerin is a 5 mics per kilo per minute, and levo fed has just been pause d. Patient received 250 mL of Cell Saver Intra-Op, no additional blood work has been transfused, she did receive 2.5 L and crystalloids intraoperatively, currently has blood pressures are mildly low, and his urine output is in the order of 25 ML per hour, patient is going to receive additional volume in the form of 5% albumin, his PA pressure is 52/22, his CVP is 15, cardiac output is 5.5, and index is 2.5. He has one mediastinal left pleural chest tubes that are connected together, with small amount of serosanguineous output, no evidence of air leak, postoperative chest x-ray has been reviewed going diffuse scattered increased lung markings possibly related to underlying pulmonary fibrosis. Consider case with cardiothoracic surgeon who informed us that the lung biopsy has been taken intraoperatively. Patient was reevaluated today on 11/28/2020, patient is doing well, he was extubated shortly after he arrived to the ICU last night. Patient is postoperative day #1. He underwent CABG with RICE to LAD, reverse saphenous vein graft to the diagonal and reverse saphenous vein graft to posterior lateral distal circumflex. Patient also had biopsy of the left upper lobe since his j[address] st x-ray and clinical findings were consistent with possible underlying pulmonary fibrosis. Today the patient is sitting in a recliner in the intensive care unit, he was extubated at 16:29 PM. Tolerated the extubation well. Presently asymptomatic, denies any shortness of breath, patient is in sinus rhythm hemodynamically stable. And again he is on 4 L nasal cannula achieving 1250 ML with his incentive spirometer. Mediastinal and left sided pleural chest tube remained in place. Objective - Vital Signs Vital signs: Vital Signs Temp 99.0 F 11/28/20 08:00 Pulse 73 11/28/20 10:00 Resp 22 11/28/20 10:00 BP 118/69 11/28/20 10:00 Pulse Ox 94 L 11/28/20 09:00 Intake & Output 11/27/20 11/28/20 11/28/20 18:59 06:59 18:59 Intake Total 8067.914 4069.868 188.55 Output Total 1632 925 230 Balance -401.379 423.868 -41.45 Weight 102.1 kg Intake: IV 1226 862 162 ACETAMINOPHEN IV (For NPO 100 50 ) 1,000 mg In Empty Bag 1 bag @ 400 mls/hr IVPB Q6HR [facility] Rx#:[id number] Albumin Human 5% 250 ml 500 250 In Empty Bag 1 bag @ 250 mls/hr IVPB Q1HR PRN Rx#: [id number] CO/CI 160 120 10 Lactated Ringers 1,000 ml 350 400 140 @ 20 mls/hr IV .Q24H [facility] Rx#:[id number] Pressure Bags 63 42 12 Intake, IV Titration 4.621 6.868 26.55 Amount Clevidipine Butyrate 25 0.833 mg In Empty Bag 1 bag @ 1 MG/HR 2 mls/hr IV .Q24H [facility] Rx#:[id number] Insulin Regular 100 unit 3.788 6.868 In Sodium Chloride 0.9% 100 ml @ Per Protocol IV .Q0M [facility] Rx#:[id number] Nitroglycerin-D5w Pmx 50 26.55 mg In Dextrose/Water 1 250ml.bag @ 5 MCG/MIN 1.5 mls/hr IV .Q24H [facility] Rx#: [id number] Oral 480 Output: Chest Tube Drainage 430 610 110 Left Pleural/Mediastinal 430 610 110 Urine 702 315 120 Estimated Blood Loss 500 Other: Voiding Method Indwelling Catheter Indwelling Catheter ABP, PAP, CO, CI - Last Documented Arterial Blood Pressure 131/44 Pulmonary Artery Pressure 41/21 Cardiac Output 4.5 Cardiac Index 2.1 - Exam Physical Exam: Revealed 80-year-old white male in no distress, on few liters nasal cannula, relatively asymptomatic. Head: Atraumatic, normocephalic. HEENT:[Neck is supple.] [No neck masses.] [No thyromegaly.] [No JVD.] Chest: [Symmetrical chest expansion, crackles at the bases, left sided pleural chest tube and mediastinal chest tubes noted. 1090 and mild serosanguineous drainage in chest tubes since surgery Cardiac Exam: [Normal S1 and S2, no S3 gallop, no murmur.] Abdomen: [Soft, nontender, no megaly, no rebound, no guarding, normal bowel sounds.] Extremities: [No clubbing, no edema, no cyanosis.] Neurological Exam: [No focal neurologic deficit.] Alert and oriented 3. Psychiatric: Normal mood affect and normal mental status examination - Labs CBC & Chem 7: 11/28/20 03:45 11/28/20 03:45 Labs: Abnormal Lab Results - Last 24 Hours (Table) 11/21/20 11/27/20 11/27/20 Range/Units 11:09 08:44 10:27 RBC (4.30-5.90) m/uL Hgb (13.0-17.5) gm/dL Hct (39.0-53.0) % Plt Count (150-450) k/uL Lymphocytes # (1.0-4.8) k/uL ABG pH (7.35-7.45) ABG pCO2 (35-45) mmHg ABG pO2 292 H 171 H (83-108) mmHg ABG HCO3 26 H (21-25) mmol/L ABG Total CO2 27 H 26 H (19-24) mmol/L ABG O2 Saturation 100.0 H 99.5 H (94-97) % ABG Hematocrit (34.0-46.0) % ABG Glucose 100 H 133 H (75-99) mg/dL Hemoglobin 12.3 L 12.3 L (13.0-17.5) gm/dL Sodium (137-145) mmol/L Chloride (98-107) mmol/L Carbon Dioxide (22-30) mmol/L Glucose (74-99) mg/dL POC Glucose (mg/dL) (75-99) mg/dL Calcium (8.4-10.2) mg/dL Total Protein (6.3-8.2) g/dL Albumin (3.5-5.0) g/dL Arterial Blood Glucose 100 H 133 H (75-99) mg/dL Crossmatch See Detail 11/27/20 11/27/20 11/27/20 Range/Units 11:18 11:43 12:49 RBC 3.71 L (4.30-5.90) m/uL Hgb 11.7 L (13.0-17.5) gm/dL Hct 33.6 L (39.0-53.0) % Plt Count 140 L (150-450) k/uL Lymphocytes # 0.9 L (1.0-4.8) k/uL ABG pH (7.35-7.45) ABG pCO2 (35-45) mmHg ABG pO2 74 L (83-108) mmHg ABG HCO3 (21-25) mmol/L ABG Total CO2 25 H 26 H (19-24) mmol/L ABG O2 Saturation 98.3 H (94-97) % ABG Hematocrit 33 L (34.0-46.0) % ABG Glucose 120 H 119 H (75-99) mg/dL Hemoglobin 11.0 L 10.7 L (13.0-17.5) gm/dL Sodium (137-145) mmol/L Chloride (98-107) mmol/L Carbon Dioxide (22-30) mmol/L Glucose (74-99) mg/dL POC Glucose (mg/dL) (75-99) mg/dL Calcium (8.4-10.2) mg/dL Total Protein (6.3-8.2) g/dL Albumin (3.5-5.0) g/dL Arterial Blood Glucose 120 H 119 H (75-99) mg/dL Crossmatch 11/27/20 11/27/20 11/27/20 Range/Units 12:49 12:50 13:01 RBC (4.30-5.90) m/uL Hgb (13.0-17.5) gm/dL Hct (39.0-53.0) % Plt Count (150-450) k/uL Lymphocytes # (1.0-4.8) k/uL ABG pH 7.32 L (7.35-7.45) ABG pCO2 50 H (35-45) mmHg ABG pO2 310 H (83-108) mmHg ABG HCO3 26 H (21-25) mmol/L ABG Total CO2 27 H (19-24) mmol/L ABG O2 Saturation 99.5 H (94-97) % ABG Hematocrit (34.0-46.0) % ABG Glucose (75-99) mg/dL Hemoglobin (13.0-17.5) gm/dL Sodium 136 L (137-145) mmol/L Chloride 108 H (98-107) mmol/L Carbon Dioxide (22-30) mmol/L Glucose 120 H (74-99) mg/dL POC Glucose (mg/dL) 148 H (75-99) mg/dL Calcium 8.1 L (8.4-10.2) mg/dL Total Protein 5.0 L (6.3-8.2) g/dL Albumin 2.7 L (3.5-5.0) g/dL Arterial Blood Glucose (75-99) mg/dL Crossmatch 11/27/20 11/27/20 11/27/20 Range/Units 14:03 15:05 15:38 RBC 3.53 L (4.30-5.90) m/uL Hgb 11.1 L (13.0-17.5) gm/dL Hct 31.9 L (39.0-53.0) % Plt Count 130 L (150-450) k/uL Lymphocytes # 0.7 L (1.0-4.8) k/uL ABG pH (7.35-7.45) ABG pCO2 (35-45) mmHg ABG pO2 (83-108) mmHg ABG HCO3 (21-25) mmol/L ABG Total CO2 (19-24) mmol/L ABG O2 Saturation (94-97) % ABG Hematocrit (34.0-46.0) % ABG Glucose (75-99) mg/dL Hemoglobin (13.0-17.5) gm/dL Sodium (137-145) mmol/L Chloride (98-107) mmol/L Carbon Dioxide (22-30) mmol/L Glucose (74-99) mg/dL POC Glucose (mg/dL) 151 H 144 H (75-99) mg/dL Calcium (8.4-10.2) mg/dL Total Protein (6.3-8.2) g/dL Albumin (3.5-5.0) g/dL Arterial Blood Glucose (75-99) mg/dL Crossmatch 11/27/20 11/27/20 11/27/20 Range/Units 16:00 16:22 17:05 RBC (4.30-5.90) m/uL Hgb (13.0-17.5) gm/dL Hct (39.0-53.0) % Plt Count (150-450) k/uL Lymphocytes # (1.0-4.8) k/uL ABG pH (7.35-7.45) ABG pCO2 (35-45) mmHg ABG pO2 206 H (83-108) mmHg ABG HCO3 (21-25) mmol/L ABG Total CO2 25 H (19-24) mmol/L ABG O2 Saturation 99.5 H (94-97) % ABG Hematocrit (34.0-46.0) % ABG Glucose (75-99) mg/dL Hemoglobin (13.0-17.5) gm/dL Sodium (137-145) mmol/L Chloride (98-107) mmol/L Carbon Dioxide (22-30) mmol/L Glucose (74-99) mg/dL POC Glucose (mg/dL) 142 H 138 H (75-99) mg/dL Calcium (8.4-10.2) mg/dL Total Protein (6.3-8.2) g/dL Albumin (3.5-5.0) g/dL Arterial Blood Glucose (75-99) mg/dL Crossmatch 11/27/20 11/27/20 11/27/20 Range/Units 18:08 19:02 19:09 RBC 3.55 L (4.30-5.90) m/uL Hgb 11.1 L (13.0-17.5) gm/dL Hct 32.0 L (39.0-53.0) % Plt Count 136 L (150-450) k/uL Lymphocytes # 0.4 L (1.0-4.8) k/uL ABG pH (7.35-7.45) ABG pCO2 (35-45) mmHg ABG pO2 (83-108) mmHg ABG HCO3 (21-25) mmol/L ABG Total CO2 (19-24) mmol/L ABG O2 Saturation (94-97) % ABG Hematocrit (34.0-46.0) % ABG Glucose (75-99) mg/dL Hemoglobin (13.0-17.5) gm/dL Sodium (137-145) mmol/L Chloride (98-107) mmol/L Carbon Dioxide (22-30) mmol/L Glucose (74-99) mg/dL POC Glucose (mg/dL) 133 H 131 H (75-99) mg/dL Calcium (8.4-10.2) mg/dL Total Protein (6.3-8.2) g/dL Albumin (3.5-5.0) g/dL Arterial Blood Glucose (75-99) mg/dL Crossmatch 11/27/20 11/27/20 11/27/20 Range/Units 20:10 21:01 22:08 RBC (4.30-5.90) m/uL Hgb (13.0-17.5) gm/dL Hct (39.0-53.0) % Plt Count (150-450) k/uL Lymphocytes # (1.0-4.8) k/uL ABG pH (7.35-7.45) ABG pCO2 (35-45) mmHg ABG pO2 (83-108) mmHg ABG HCO3 (21-25) mmol/L ABG Total CO2 (19-24) mmol/L ABG O2 Saturation (94-97) % ABG Hematocrit (34.0-46.0) % ABG Glucose (75-99) mg/dL Hemoglobin (13.0-17.5) gm/dL Sodium (137-145) mmol/L Chloride (98-107) mmol/L Carbon Dioxide (22-30) mmol/L Glucose (74-99) mg/dL POC Glucose (mg/dL) 133 H 133 H 130 H (75-99) mg/dL Calcium (8.4-10.2) mg/dL Total Protein (6.3-8.2) g/dL Albumin (3.5-5.0) g/dL Arterial Blood Glucose (75-99) mg/dL Crossmatch 11/27/20 11/28/20 11/28/20 Range/Units 23:15 00:00 01:05 RBC (4.30-5.90) m/uL Hgb (13.0-17.5) gm/dL Hct (39.0-53.0) % Plt Count (150-450) k/uL Lymphocytes # (1.0-4.8) k/uL ABG pH (7.35-7.45) ABG pCO2 (35-45) mmHg ABG pO2 (83-108) mmHg ABG HCO3 (21-25) mmol/L ABG Total CO2 (19-24) mmol/L ABG O2 Saturation (94-97) % ABG Hematocrit (34.0-46.0) % ABG Glucose (75-99) mg/dL Hemoglobin (13.0-17.5) gm/dL Sodium (137-145) mmol/L Chloride (98-107) mmol/L Carbon Dioxide (22-30) mmol/L Glucose (74-99) mg/dL POC Glucose (mg/dL) 126 H 127 H 123 H (75-99) mg/dL Calcium (8.4-10.2) mg/dL Total Protein (6.3-8.2) g/dL Albumin (3.5-5.0) g/dL Arterial Blood Glucose (75-99) mg/dL Crossmatch 11/28/20 11/28/20 11/28/20 Range/Units 02:10 03:05 03:45 RBC 3.72 L (4.30-5.90) m/uL Hgb 11.5 L (13.0-17.5) gm/dL Hct 33.7 L (39.0-53.0) % Plt Count 147 L (150-450) k/uL Lymphocytes # 0.8 L (1.0-4.8) k/uL ABG pH (7.35-7.45) ABG pCO2 (35-45) mmHg ABG pO2 (83-108) mmHg ABG HCO3 (21-25) mmol/L ABG Total CO2 (19-24) mmol/L ABG O2 Saturation (94-97) % ABG Hematocrit (34.0-46.0) % ABG Glucose (75-99) mg/dL Hemoglobin (13.0-17.5) gm/dL Sodium (137-145) mmol/L Chloride (98-107) mmol/L Carbon Dioxide (22-30) mmol/L Glucose (74-99) mg/dL POC Glucose (mg/dL) 119 H 117 H (75-99) mg/dL Calcium (8.4-10.2) mg/dL Total Protein (6.3-8.2) g/dL Albumin (3.5-5.0) g/dL Arterial Blood Glucose (75-99) mg/dL Crossmatch 11/28/20 11/28/20 11/28/20 Range/Units 03:45 03:49 05:17 RBC (4.30-5.90) m/uL Hgb (13.0-17.5) gm/dL Hct (39.0-53.0) % Plt Count (150-450) k/uL Lymphocytes # (1.0-4.8) k/uL ABG pH (7.35-7.45) ABG pCO2 (35-45) mmHg ABG pO2 (83-108) mmHg ABG HCO3 (21-25) mmol/L ABG Total CO2 (19-24) mmol/L ABG O2 Saturation (94-97) % ABG Hematocrit (34.0-46.0) % ABG Glucose (75-99) mg/dL Hemoglobin (13.0-17.5) gm/dL Sodium 133 L (137-145) mmol/L Chloride (98-107) mmol/L Carbon Dioxide 21 L (22-30) mmol/L Glucose 115 H (74-99) mg/dL POC Glucose (mg/dL) 121 H 117 H (75-99) mg/dL Calcium (8.4-10.2) mg/dL Total Protein 5.3 L (6.3-8.2) g/dL Albumin 3.0 L (3.5-5.0) g/dL Arterial Blood Glucose (75-99) mg/dL Crossmatch 11/28/20 11/28/20 Range/Units 06:48 08:14 RBC (4.30-5.90) m/uL Hgb (13.0-17.5) gm/dL Hct (39.0-53.0) % Plt Count (150-450) k/uL Lymphocytes # (1.0-4.8) k/uL ABG pH (7.35-7.45) ABG pCO2 (35-45) mmHg ABG pO2 (83-108) mmHg ABG HCO3 (21-25) mmol/L ABG Total CO2 (19-24) mmol/L ABG O2 Saturation (94-97) % ABG Hematocrit (34.0-46.0) % ABG Glucose (75-99) mg/dL Hemoglobin (13.0-17.5) gm/dL Sodium (137-145) mmol/L Chloride (98-107) mmol/L Carbon Dioxide (22-30) mmol/L Glucose (74-99) mg/dL POC Glucose (mg/dL) 119 H 121 H (75-99) mg/dL Calcium (8.4-10.2) mg/dL Total Protein (6.3-8.2) g/dL Albumin (3.5-5.0) g/dL Arterial Blood Glucose (75-99) mg/dL Crossmatch Microbiology - Last 24 Hours (Table) 11/27/20 12:02 Acid Fast Bacilli Culture - Preliminary Lung - Left Upper Lobe 11/27/20 12:02 Fungal Culture - Preliminary Lung - Left Upper Lobe Assessment and Plan Assessment: Impression: Status post CABG, postoperative day #1. And status post left upper lobe lung biopsy. Suspect idiopathic pulmonary fibrosis, lung biopsy is pending. 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 Remote history of Guillain-Quinteros. Recommendation: Continue postoperative care. Continue aspirin and Plavix and statin as well as beta blockers. Titrate oxygen and wean accordingly maintaining O2 saturation above 90% Continue to monitor daily x-rays of the chest and daily labs. Continue GI and DVT prophylaxis. Discontinue unnecessary catheters and lines and tubes. Pain control management. Early ambulation. We'll continue to follow. Time with Patient: Less than 30
[2020-11-28 11:58] VITALS: BMI 31.4
[2020-11-28] MEDS: INSULIN ASPART (NovoLOG) 100 UNIT/ML VIAL SQ SCH ×3 (12:10→20:59)
--- NOTE | 2020-11-28 13:31 | P.PN ---
Subjective Progress Note Date: 11/28/20 This is a 80-year-old gentleman status post CABG RICE-LAD, SVG-diagonal branch and posterior circumflex, modified MAZE, cardioversion and lung biopsy postop day #1 , extubated last night. Maintaining O2 sats in the 90s on 4 L nasal cannula. Incentive spirometer ranging from 1250 to 1500. Chest x-ray reporting small bilateral pleural effusions, mild interstitial edema, and possible underlying moderate to advanced pulmonary fibrosis in a patient who was a former smoker. Insulin drip converted over to sliding scale. Blood sugars controlled. Telemetry sinus rhythm. Complains of surgical site pain, denies chest pain, palpitations or shortness of breath. Objective - Vital Signs Vital signs: Vital Signs Temp 97.9 F 11/28/20 12:00 Pulse 64 11/28/20 12:31 Resp 18 11/28/20 12:31 BP 113/54 11/28/20 12:00 Pulse Ox 96 11/28/20 11:00 Intake & Output 11/27/20 11/28/20 11/28/20 18:59 06:59 18:59 Intake Total 1212.295 0517.868 274.55 Output Total 1632 925 335 Balance -401.379 423.868 -60.45 Weight 102.1 kg 102.1 kg Intake: IV 1226 862 248 ACETAMINOPHEN IV (For NPO 100 50 ) 1,000 mg In Empty Bag 1 bag @ 400 mls/hr IVPB Q6HR [facility] Rx#:[id number] Albumin Human 5% 250 ml 500 250 In Empty Bag 1 bag @ 250 mls/hr IVPB Q1HR PRN Rx#: [id number] CO/CI 160 120 10 Lactated Ringers 1,000 ml 350 400 220 @ 20 mls/hr IV .Q24H [facility] Rx#:[id number] Pressure Bags 63 42 18 Intake, IV Titration 4.621 6.868 26.55 Amount Clevidipine Butyrate 25 0.833 mg In Empty Bag 1 bag @ 1 MG/HR 2 mls/hr IV .Q24H [facility] Rx#:[id number] Insulin Regular 100 unit 3.788 6.868 In Sodium Chloride 0.9% 100 ml @ Per Protocol IV .Q0M [facility] Rx#:[id number] Nitroglycerin-D5w Pmx 50 26.55 mg In Dextrose/Water 1 250ml.bag @ 5 MCG/MIN 1.5 mls/hr IV .Q24H [facility] Rx#: [id number] Oral 480 Output: Chest Tube Drainage 430 610 170 Left Pleural/Mediastinal 430 610 170 Urine 702 315 165 Estimated Blood Loss 500 Other: Voiding Method Indwelling Catheter Indwelling Catheter ABP, PAP, CO, CI - Last Documented Arterial Blood Pressure 124/40 Pulmonary Artery Pressure 41/21 Cardiac Output 4.5 Cardiac Index 2.1 - Exam PHYSICAL EXAM: VITAL SIGNS: [As above] GENERAL: Sitting up in a chair, no acute distress HEENT: Conjunctivae normal. eyes normal. NECK: No JVD. No thyroid enlargement. No LNs CARDIOVASCULAR: S1, S2 regular. No murmur RESPIRATION: Breath sounds diminished in the bases. Fine basilar crackles. Left pleural and mediastinal chest tubes present. ABDOMEN: Soft, nontender . No guarding. no masses palpable. No ascites, No hepatosplenomegaly.Bowel sounds heard. LEGS: No edema. no swelling PSYCHIATRY: Alert and oriented X3, mood and affect normal. NERVOUS SYSTEM: Cranial N 2-12 grossly normal. Moves all 4 limbs. No focal deficits. Strength and sensation grossly intact.. Skin: Warm and dry, no rash - Labs CBC & Chem 7: 11/28/20 03:45 11/28/20 03:45 Labs: Abnormal Lab Results - Last 24 Hours (Table) 11/21/20 11/27/20 11/27/20 Range/Units 11:09 12:49 12:49 RBC 3.71 L (4.30-5.90) m/uL Hgb 11.7 L (13.0-17.5) gm/dL Hct 33.6 L (39.0-53.0) % Plt Count 140 L (150-450) k/uL Lymphocytes # 0.9 L (1.0-4.8) k/uL ABG pH (7.35-7.45) ABG pCO2 (35-45) mmHg ABG pO2 (83-108) mmHg ABG HCO3 (21-25) mmol/L ABG Total CO2 (19-24) mmol/L ABG O2 Saturation (94-97) % Sodium 136 L (137-145) mmol/L Chloride 108 H (98-107) mmol/L Carbon Dioxide (22-30) mmol/L Glucose 120 H (74-99) mg/dL POC Glucose (mg/dL) (75-99) mg/dL Calcium 8.1 L (8.4-10.2) mg/dL Total Protein 5.0 L (6.3-8.2) g/dL Albumin 2.7 L (3.5-5.0) g/dL Crossmatch See Detail 11/27/20 11/27/20 11/27/20 Range/Units 13:01 14:03 15:05 RBC (4.30-5.90) m/uL Hgb (13.0-17.5) gm/dL Hct (39.0-53.0) % Plt Count (150-450) k/uL Lymphocytes # (1.0-4.8) k/uL ABG pH 7.32 L (7.35-7.45) ABG pCO2 50 H (35-45) mmHg ABG pO2 310 H (83-108) mmHg ABG HCO3 26 H (21-25) mmol/L ABG Total CO2 27 H (19-24) mmol/L ABG O2 Saturation 99.5 H (94-97) % Sodium (137-145) mmol/L Chloride (98-107) mmol/L Carbon Dioxide (22-30) mmol/L Glucose (74-99) mg/dL POC Glucose (mg/dL) 151 H 144 H (75-99) mg/dL Calcium (8.4-10.2) mg/dL Total Protein (6.3-8.2) g/dL Albumin (3.5-5.0) g/dL Crossmatch 11/27/20 11/27/20 11/27/20 Range/Units 15:38 16:00 16:22 RBC 3.53 L (4.30-5.90) m/uL Hgb 11.1 L (13.0-17.5) gm/dL Hct 31.9 L (39.0-53.0) % Plt Count 130 L (150-450) k/uL Lymphocytes # 0.7 L (1.0-4.8) k/uL ABG pH (7.35-7.45) ABG pCO2 (35-45) mmHg ABG pO2 206 H (83-108) mmHg ABG HCO3 (21-25) mmol/L ABG Total CO2 25 H (19-24) mmol/L ABG O2 Saturation 99.5 H (94-97) % Sodium (137-145) mmol/L Chloride (98-107) mmol/L Carbon Dioxide (22-30) mmol/L Glucose (74-99) mg/dL POC Glucose (mg/dL) 142 H (75-99) mg/dL Calcium (8.4-10.2) mg/dL Total Protein (6.3-8.2) g/dL Albumin (3.5-5.0) g/dL Crossmatch 11/27/20 11/27/20 11/27/20 Range/Units 17:05 18:08 19:02 RBC (4.30-5.90) m/uL Hgb (13.0-17.5) gm/dL Hct (39.0-53.0) % Plt Count (150-450) k/uL Lymphocytes # (1.0-4.8) k/uL ABG pH (7.35-7.45) ABG pCO2 (35-45) mmHg ABG pO2 (83-108) mmHg ABG HCO3 (21-25) mmol/L ABG Total CO2 (19-24) mmol/L ABG O2 Saturation (94-97) % Sodium (137-145) mmol/L Chloride (98-107) mmol/L Carbon Dioxide (22-30) mmol/L Glucose (74-99) mg/dL POC Glucose (mg/dL) 138 H 133 H 131 H (75-99) mg/dL Calcium (8.4-10.2) mg/dL Total Protein (6.3-8.2) g/dL Albumin (3.5-5.0) g/dL Crossmatch 11/27/20 11/27/20 11/27/20 Range/Units 19:09 20:10 21:01 RBC 3.55 L (4.30-5.90) m/uL Hgb 11.1 L (13.0-17.5) gm/dL Hct 32.0 L (39.0-53.0) % Plt Count 136 L (150-450) k/uL Lymphocytes # 0.4 L (1.0-4.8) k/uL ABG pH (7.35-7.45) ABG pCO2 (35-45) mmHg ABG pO2 (83-108) mmHg ABG HCO3 (21-25) mmol/L ABG Total CO2 (19-24) mmol/L ABG O2 Saturation (94-97) % Sodium (137-145) mmol/L Chloride (98-107) mmol/L Carbon Dioxide (22-30) mmol/L Glucose (74-99) mg/dL POC Glucose (mg/dL) 133 H 133 H (75-99) mg/dL Calcium (8.4-10.2) mg/dL Total Protein (6.3-8.2) g/dL Albumin (3.5-5.0) g/dL Crossmatch 11/27/20 11/27/20 11/28/20 Range/Units 22:08 23:15 00:00 RBC (4.30-5.90) m/uL Hgb (13.0-17.5) gm/dL Hct (39.0-53.0) % Plt Count (150-450) k/uL Lymphocytes # (1.0-4.8) k/uL ABG pH (7.35-7.45) ABG pCO2 (35-45) mmHg ABG pO2 (83-108) mmHg ABG HCO3 (21-25) mmol/L ABG Total CO2 (19-24) mmol/L ABG O2 Saturation (94-97) % Sodium (137-145) mmol/L Chloride (98-107) mmol/L Carbon Dioxide (22-30) mmol/L Glucose (74-99) mg/dL POC Glucose (mg/dL) 130 H 126 H 127 H (75-99) mg/dL Calcium (8.4-10.2) mg/dL Total Protein (6.3-8.2) g/dL Albumin (3.5-5.0) g/dL Crossmatch 11/28/20 11/28/20 11/28/20 Range/Units 01:05 02:10 03:05 RBC (4.30-5.90) m/uL Hgb (13.0-17.5) gm/dL Hct (39.0-53.0) % Plt Count (150-450) k/uL Lymphocytes # (1.0-4.8) k/uL ABG pH (7.35-7.45) ABG pCO2 (35-45) mmHg ABG pO2 (83-108) mmHg ABG HCO3 (21-25) mmol/L ABG Total CO2 (19-24) mmol/L ABG O2 Saturation (94-97) % Sodium (137-145) mmol/L Chloride (98-107) mmol/L Carbon Dioxide (22-30) mmol/L Glucose (74-99) mg/dL POC Glucose (mg/dL) 123 H 119 H 117 H (75-99) mg/dL Calcium (8.4-10.2) mg/dL Total Protein (6.3-8.2) g/dL Albumin (3.5-5.0) g/dL Crossmatch 11/28/20 11/28/20 11/28/20 Range/Units 03:45 03:45 03:49 RBC 3.72 L (4.30-5.90) m/uL Hgb 11.5 L (13.0-17.5) gm/dL Hct 33.7 L (39.0-53.0) % Plt Count 147 L (150-450) k/uL Lymphocytes # 0.8 L (1.0-4.8) k/uL ABG pH (7.35-7.45) ABG pCO2 (35-45) mmHg ABG pO2 (83-108) mmHg ABG HCO3 (21-25) mmol/L ABG Total CO2 (19-24) mmol/L ABG O2 Saturation (94-97) % Sodium 133 L (137-145) mmol/L Chloride (98-107) mmol/L Carbon Dioxide 21 L (22-30) mmol/L Glucose 115 H (74-99) mg/dL POC Glucose (mg/dL) 121 H (75-99) mg/dL Calcium (8.4-10.2) mg/dL Total Protein 5.3 L (6.3-8.2) g/dL Albumin 3.0 L (3.5-5.0) g/dL Crossmatch 11/28/20 11/28/20 11/28/20 Range/Units 05:17 06:48 08:14 RBC (4.30-5.90) m/uL Hgb (13.0-17.5) gm/dL Hct (39.0-53.0) % Plt Count (150-450) k/uL Lymphocytes # (1.0-4.8) k/uL ABG pH (7.35-7.45) ABG pCO2 (35-45) mmHg ABG pO2 (83-108) mmHg ABG HCO3 (21-25) mmol/L ABG Total CO2 (19-24) mmol/L ABG O2 Saturation (94-97) % Sodium (137-145) mmol/L Chloride (98-107) mmol/L Carbon Dioxide (22-30) mmol/L Glucose (74-99) mg/dL POC Glucose (mg/dL) 117 H 119 H 121 H (75-99) mg/dL Calcium (8.4-10.2) mg/dL Total Protein (6.3-8.2) g/dL Albumin (3.5-5.0) g/dL Crossmatch 11/28/20 Range/Units 11:33 RBC (4.30-5.90) m/uL Hgb (13.0-17.5) gm/dL Hct (39.0-53.0) % Plt Count (150-450) k/uL Lymphocytes # (1.0-4.8) k/uL ABG pH (7.35-7.45) ABG pCO2 (35-45) mmHg ABG pO2 (83-108) mmHg ABG HCO3 (21-25) mmol/L ABG Total CO2 (19-24) mmol/L ABG O2 Saturation (94-97) % Sodium (137-145) mmol/L Chloride (98-107) mmol/L Carbon Dioxide (22-30) mmol/L Glucose (74-99) mg/dL POC Glucose (mg/dL) 121 H (75-99) mg/dL Calcium (8.4-10.2) mg/dL Total Protein (6.3-8.2) g/dL Albumin (3.5-5.0) g/dL Crossmatch Microbiology - Last 24 Hours (Table) 11/27/20 12:02 Acid Fast Bacilli Culture - Preliminary Lung - Left Upper Lobe 11/27/20 12:02 Fungal Culture - Preliminary Lung - Left Upper Lobe Assessment and Plan Assessment: Status post CABG, Possible pulmonary fibrosis, possible interstitial pneumonitis status post left upper lobe lung biopsy Chronic Paroxysmal atrial fibrillation, currently sinus rhythm Acute blood loss anemia with thrombocytopenia, postop, expected. Obstructive sleep apnea Hypertension History of smoking, quit 27 years ago History of Guillain-Qiunteros syndrome Obesity, BMI 31.4 Plan: Continue on current medication regime ,monitoring and symptomatic treatment. Aggressive pulmonary toileting with incentive spirometer reinforced. Pain management. Increase ambulation as tolerated. Close monitoring of Accu- Cheks. The impression and plan of care has been dictated as directed. : I performed a history and examination of this patient, discussed the same with the dictator. I agree with the dictator's note ,documented as a scribe. Any additional findings or plans will be noted.
[2020-11-28] MEDS ORDERED: ACETAMINOPHEN TAB 325 MG TAB PO PRN (16:31)
[2020-11-28 17:18] LABS: Glucose,Whole Blood 127 mg/dL (75-99)
[2020-11-28] MEDS: LACTATED RINGERS 1,000 ML IV SCH (17:18)
[2020-11-28 20:54] LABS: Glucose,Whole Blood 137 mg/dL (75-99)
[2020-11-28] MEDS: MULTIVITAMINS, THERA 1 EACH TAB PO SCH (20:59)
[2020-11-28] MEDS: ASCORBIC ACID 500 MG TAB PO SCH (20:59)
[2020-11-28] MEDS: ATORVASTATIN 80 MG TAB PO SCH (20:59)
[2020-11-28] MEDS: CHOLECALCIFEROL 25 MCG (1000 IU) TABLET PO SCH (20:59)
[2020-11-28] MEDS: SENNOSIDES-DOCUSATE SODIUM 1 EACH TAB PO SCH (20:59)
[2020-11-29 04:41] LABS: HCT 31.6 % (39.0-53.0); HGB 10.8 gm/dL (13.0-17.5); MCH 30.8 pg (25.0-35.0); MCV 90.6 fL (80.0-100.0); Mean Platelet Volume 9.2; Platelet Count 134 k/uL (150-450); RBC 3.49 m/uL (4.30-5.90); RDW 14.2 % (11.5-15.5); WBC 6.6 k/uL (3.8-10.6)
[2020-11-29 05:19] LABS: Ionized Calcium 5.2 mg/dL (4.5-5.3)
[2020-11-29 05:24] LABS: Eosinophils # (M) 0.07 k/uL (0-0.7); Lymphocytes # (M) 0.86 k/uL (1.0-4.8); Monocytes # (M) 0.33 k/uL (0-1.0); Neutrophils # (M) 5.35 k/uL (1.3-7.7); Neutrophils % (M) 81 %; Nucleated Red Blood Cells 0 /100 WBC (0-0); Total Cells Counted 100
[2020-11-29 05:30] LABS: ALT 10 U/L (4-49); AST 31 U/L (17-59); African American GFR (CKD) >90 (>60 ml/min/1.73 sqM); Albumin 2.7 g/dL (3.5-5.0); Alkaline Phosphatase 49 U/L (38-126); Anion Gap 5 mmol/L; Blood Urea Nitrogen 21 mg/dL (9-20); Calcium 8.5 mg/dL (8.4-10.2); Carbon Dioxide 23 mmol/L (22-30); Chloride 102 mmol/L (98-107); Glucose 104 mg/dL (74-99); Non-African American GFR(CKD) 88 (>60 ml/min/1.73 sqM); Sodium 130 mmol/L (137-145)
[2020-11-29 06:22] LABS: Glucose,Whole Blood 105 mg/dL (75-99)
[2020-11-29] MEDS: INSULIN ASPART (NovoLOG) 100 UNIT/ML VIAL SQ SCH ×4 (06:25→20:44)
[2020-11-29] MEDS: PANTOPRAZOLE 40 MG TABLET PO SCH (06:27)
[2020-11-29] MEDS: KETOROLAC 15 MG/ML 1 ML VIAL IVP SCH ×4 (06:27→23:43)
[2020-11-29] MEDS: IPRATROPIUM-ALBUTEROL 3 ML NEB INHALATION SCH ×4 (07:37→20:06)
[2020-11-29] MEDS: HEPARIN SODIUM,PORCINE/PF 5,000 UNIT/0.5 ML SYRINGE SQ SCH ×3 (07:51→23:42)
[2020-11-29] MEDS: METOPROLOL TARTRATE 12.5 MG TAB PO SCH ×2 (07:52→20:44)
[2020-11-29] MEDS: hydrALAZINE HCL 25 MG TAB PO SCH ×3 (07:52→23:42)
[2020-11-29] MEDS: MAGNESIUM OXIDE 400 MG TAB PO SCH (07:52)
[2020-11-29] MEDS: ASPIRIN 325 MG TAB PO SCH (07:52)
[2020-11-29] MEDS: CLOPIDOGREL 75 MG TAB PO SCH (07:52)
[2020-11-29] MEDS: MAGNESIUM HYDROXIDE 2,400 MG/10 ML CUP PO PRN (07:58)
[2020-11-29] MEDS: ZINC SULFATE 220 MG CAP PO SCH (08:17)
--- NOTE | 2020-11-29 08:25 | XR ---
EXAMINATION TYPE: XR chest 1V portable DATE OF EXAM: 11/29/2020 Comparison: 11/28/2020 Clinical History: 80-year-old male Post Operative Cardiac Surgery Findings: Median sternotomy wires with post-CABG the mediastinum. Mediastinal drain and left-sided chest tube. No appreciable pneumothorax. Heart remains mildly enlarged. Coarse interstitial opacities persist. Pa tchy bibasilar opacities show slight improvement. Impression: Mild cardiomegaly and coarse bilateral interstitial infiltrates persist. Patchy bibasilar opacities s how slight improvement.
[2020-11-29] MEDS ORDERED: FUROSEMIDE 10 MG/ML 2 ML VIAL IV ONE (08:53)
--- NOTE | 2020-11-29 09:22 | P.PN ---
Subjective Progress Note Date: 11/29/20 Principal diagnosis: Coronary artery disease with left main disease, atrial flutter present on entrance to the operating room, pneumopathy with suspected pulmonary fibrosis. Previous medical history of hypertension, hyperlipidemia, paroxysmal atrial flutter, paroxysmal atrial fibrillation on Eliquis for anticoagulation, previous tobacco dependence, obstructive sleep apnea without home CPAP use, urethral stricture requiring straight catheterization, obesity, osteoarthritis, Guillain- Carey after flu vaccine in the past. POD #2 off-pump coronary artery bypass grafting 3 with left internal mammary artery to the left anterior descending artery, reverse saphenous vein graft to the diagonal artery, reverse saphenous vein graft to posterior lateral distal circumflex, endovascular vein harvest from the left upper calf to the groin, epi-aortic ultrasonography, modified Dowling maze bilateral pulmonary vein ablation and ligation of the left atrial appendage with a 35 mm AtriCure clip, electrical cardioversion, biopsy of the left upper lobe of the lung Postoperative acute blood loss anemia and thrombocytopenia, expected post cardiac surgery given hemodilution No postoperative hypoxic respiratory failure (documented in the medical consultation)-patient normal post operative course with mechanical ventilation due to surgery, extubated within 4 hours of OR exit time The patient is currently sitting up in a recliner in the intensive care unit in no acute distress. States pain is controlled on current medication regimen, denies shortness of breath. States he had an uneventful night, was able to get some sleep. Currently in sinus rhythm with first-degree AV block, hemodynamically stable. Remains on 4 L nasal cannula, actively attempting incentive spirometry use and achieving 6359-1198 mL. Right internal jugular Cordis, right radial arterial line, mediastinal/left pleural chest tubes all remain. Patient did ambulate in the hallway yesterday without difficulty. No new concerns. Objective - Vital Signs Vital signs: Vital Signs Temp 98.2 F 11/29/20 04:00 Pulse 81 11/29/20 07:49 Resp 16 11/29/20 07:49 BP 150/60 11/29/20 07:00 Pulse Ox 93 L 11/29/20 07:37 Intake & Output 11/28/20 11/29/20 11/29/20 18:59 06:59 18:59 Intake Total 575.55 230 23 Output Total 730 1225 45 Balance -154.45 -995 -22 Weight 102.1 kg 103.3 kg Intake: IV 549 230 23 CO/CI 10 Lactated Ringers 1,000 ml 500 200 20 @ 20 mls/hr IV .Q24H [facility] Rx#:[id number] Pressure Bags 39 30 3 Intake, IV Titration 26.55 Amount Nitroglycerin-D5w Pmx 50 26.55 mg In Dextrose/Water 1 250ml.bag @ 5 MCG/MIN 1.5 mls/hr IV .Q24H [facility] Rx#: [id number] Output: Chest Tube Drainage 350 510 Left Pleural/Mediastinal 350 510 Urine 380 715 45 Other: Voiding Method Indwelling Catheter Indwelling Catheter ABP, PAP, CO, CI - Last Documented Arterial Blood Pressure 124/88 Pulmonary Artery Pressure 41/21 Cardiac Output 4.5 Cardiac Index 2.1 - Exam CONSTITUTIONAL: Appears comfortable, cooperative, no acute distress RESPIRATORY: Lungs sounds diminished bilaterally. Respirations even, nonlabored. Currently on 4 L nasal cannula with oxygen saturation 93%. Able to achieve 5339-8634 mL on incentive spirometry. Strong productive cough. CARDIOVASCULAR: S1, S2 present. Regular rate and rhythm, sinus rhythm with first-degree AV block on telemetry. Sternum stable. Palpable peripheral pulses bilaterally. Trace bilateral lower extremity edema present. No calf pain or tenderness noted. Heart hugger in place with patient demonstrating appropriate use. Antiembolism stockings, SCDs present. GASTROINTESTINAL: Abdomen soft, nontender, nondistended. Active bowel sounds present 4 quadrants. Tolerating diet. Positive flatus GENITOURINARY: Almeida present draining clear, yellow urine. Output overnight 35-50 mL per hour with a couple of hours 75-100 mL, 1095 mL in the last 24 hours INTEGUMENTARY: Skin is warm and dry with evidence of good perfusion. Anterior chest incision well approximated and covered with dry intact dressing. Lower extremity EVH site well approximated without redness or drainage. NEUROLOGIC: Cranial nerves II through XII intact MUSKULOSKELETAL: Able to move all extremities, strength equal bilaterally, ambulatory without difficulty PSYCHIATRIC: Alert and oriented to person place and time, appropriate affect, intact judgment and insight INVASIVE LINES AND TUBES: Mediastinal/left pleural chest tubes present and connected to wall suction, no air leaks present, 340 mL serosanguineous drainage overnight, approximately 1000 mL in the last 24 hours. Right internal jugular Cordis, right radial arterial line present. - Allied health notes Allied health notes reviewed: nursing - Labs CBC & Chem 7: 0804/21 04:20 11/29/20 04:20 Labs: Abnormal Lab Results - Last 24 Hours (Table) 11/21/20 11/28/20 11/28/20 Range/Units 11:09 11:33 17:16 RBC (4.30-5.90) m/uL Hgb (13.0-17.5) gm/dL Hct (39.0-53.0) % Plt Count (150-450) k/uL Lymphocytes # (Manual) (1.0-4.8) k/uL Sodium (137-145) mmol/L BUN (9-20) mg/dL Glucose (74-99) mg/dL POC Glucose (mg/dL) 121 H 127 H (75-99) mg/dL Total Protein (6.3-8.2) g/dL Albumin (3.5-5.0) g/dL Crossmatch See Detail 11/28/20 11/29/20 11/29/20 Range/Units 20:52 04:20 04:20 RBC 3.49 L (4.30-5.90) m/uL Hgb 10.8 L (13.0-17.5) gm/dL Hct 31.6 L (39.0-53.0) % Plt Count 134 L (150-450) k/uL Lymphocytes # (Manual) 0.86 L (1.0-4.8) k/uL Sodium 130 L (137-145) mmol/L BUN 21 H (9-20) mg/dL Glucose 104 H (74-99) mg/dL POC Glucose (mg/dL) 137 H (75-99) mg/dL Total Protein 5.0 L (6.3-8.2) g/dL Albumin 2.7 L (3.5-5.0) g/dL Crossmatch 11/29/20 Range/Units 06:21 RBC (4.30-5.90) m/uL Hgb (13.0-17.5) gm/dL Hct (39.0-53.0) % Plt Count (150-450) k/uL Lymphocytes # (Manual) (1.0-4.8) k/uL Sodium (137-145) mmol/L BUN (9-20) mg/dL Glucose (74-99) mg/dL POC Glucose (mg/dL) 105 H (75-99) mg/dL Total Protein (6.3-8.2) g/dL Albumin (3.5-5.0) g/dL Crossmatch - Imaging and Cardiology Chest x-ray: report reviewed, image reviewed Assessment and Plan Assessment: 1. 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 Atrial flutter present on entrance to the operating room, status post electrical cardioversion 3. Pneumopathy with suspected pulmonary fibrosis, status post biopsy of the left upper lobe of the lung, preliminary results consistent with UIP, await final path from [facility] 4. History of hypertension 5. Hyperlipidemia, treated, cholesterol 141, LDL 82 6. Paroxysmal atrial flutter 7. Paroxysmal atrial fibrillation on Eliquis for anticoagulation, modified Dowling maze, ligation of the left atrial appendage 8. Previous tobacco dependence, preoperative FEV1 80% of predicted 9. Obstructive sleep apnea without home CPAP use 10. Urethral stricture requiring straight catheterization 11. Obesity 12. Osteoarthritis 13. Remote history of pneumonia 14. 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 Postoperative acute blood loss anemia and thrombocytopenia, expected post cardiac surgery given hemodilution Plan: 1. Continue aspirin, statin, Plavix, low-dose beta brandy. Will increase beta brandy carefully as tolerated as patient did have documented hypotension and bradycardia due to Lopressor in the past 2. Continue hydralazine for afterload reduction 3. Wean O2 as tolerated. Encourage incentive spirometry use 10 times every hour while awake. Bronchodilators per pulmonology 4. Increase activity, ambulate as tolerated. PT/OT/cardiac rehab following 5. Will monitor daily labs and x-rays. Electrolyte replacement per protocol. Will give IV lasix 20 mg x 1 today 6. GI/DVT prophylaxis 7. Pain control with current medication regimen 8. Insulin management per primary care service. Patient is not diabetic, preoperative hemoglobin A1c 5.4%, however he does need tight blood sugar control to promote sternal union and to prevent infection 9. Discontinue Cordis, arterial line 10. Will discontinue mediastinal chest tube, will leave left chest tube for another 24 hours 11. Discontinue Almeida catheter, patient may straight cath as he has been doing for the last 10 years 12. Strict intake and output, 1500 mL fluid restriction. Daily weights 13. Will place transfer orders for 3 south, may transfer when bed available 14. More recommendations to follow based on patient's progress Time with Patient: Greater than 30
--- NOTE | 2020-11-29 11:18 | P.PN ---
Subjective HISTORY OF PRESENTING ILLNESS This is a pleasant 80-year-old male past medical history significant for paroxysmal atrial fibrillation on eliquis, hypertension, dyslipidemia, sleep apnea, suspected pulmonary fibrosis and arthritis. He follows in the office with Dr. Schwartz. We have been asked to see in consultation for cardiac care post op CABG. He underwent RICE-LAD, SVG-diagonal branch and posterior circumflex, modified MAZE, cardioversion and lung biopsy yesterday with Dr. Clarke. He is seen and examined sitting up in the recliner. He is breathing stable with some mild surgical site pain with no anginal like symptoms. He denies dizziness or palpitations. He has right IJ swan/cordis, right radial art line, mediastinal chest tube and left pleural chest tube in place. Chest xray from this morning revealed developing small b/l pleural effusions and mild interstitial edema with underlying moderate to advanced chronic parenchymal fibrotic changes. Laboratory data reviewed, WBC 7.1, hgb 11.5, plt 147, sodium 133, potassium 4.2, creatinine 0.67 and magnesium 2.1. Currently maintained on aspirin 325 mg daily, atorvastatin 80 mg daily, plavix 75 mg daily, hydralazine 25 mg TID and lopressor 12.5 mg BID. Pre-op echo revealed preserved LV systolic function with EF 55-60%. 11/29/2020 Pt seen and examined sitting up in recliner in no acute distress. Blood pressure 150/60 heart rate 81 afebrile and maintaining oxygen saturation on nasal cannula CVP 12. Laboratory data reviewed, WBC 6.6, hgb 10.8, plt 134, sodium 130, potass ium 4.0. Mediastinal chest tube, right radial art line and cordis coming out today per CT surgery. Chest xray this morning reveals course bilateral interstitial infiltrates and patchy bibasilar opacites. PHYSICAL EXAMINATION CONSTITUTIONAL: No apparent distress. HEENT: Head is normocephalic. Pupils are equal, round. Sclerae anicteric. Mucous membranes of the mouth are moist. No JVD. No carotid bruit. CHEST EXAMINATION: Lungs are clear to auscultation. No chest wall tenderness is noted on palpation or with deep breathing. Left chest tube in place. Heart hugger in place. Sternal dressing in place. HEART EXAMINATION: Regular rate and rhythm. S1, S2 heard. No murmurs, gallops or rub. EXTREMITIES: 2+ peripheral pulses, no lower extremity edema and no calf tenderness. ASSESSMENT Coronary artery disease s/p bypass grafting Paroxysmal atrial fibrillation, currently maintaining SR Hypertension Dyslipidemia Sleep apnea PLAN Continue current medical regimen. Surgical management per CT surgery team. Encourage incentive spirometer use around the clock while awake. Increase activity and ambulation as tolerated. Further recommendations to follow based on clinical course. Nurse Practitioner note has been reviewed, I agree with a documented findings and plan of care. Patient was seen and examined. Objective - Vital Signs Vital signs: Vital Signs Temp 98.2 F 11/29/20 04:00 Pulse 81 11/29/20 07:49 Resp 16 11/29/20 07:49 BP 150/60 11/29/20 07:00 Pulse Ox 93 L 11/29/20 07:37 Intake & Output 11/28/20 11/29/20 11/29/20 18:59 06:59 18:59 Intake Total 575.55 230 23 Output Total 730 1225 45 Balance -154.45 -995 -22 Weight 102.1 kg 103.3 kg Intake: IV 549 230 23 CO/CI 10 Lactated Ringers 1,000 ml 500 200 20 @ 20 mls/hr IV .Q24H [facility] Rx#:[id number] Pressure Bags 39 30 3 Intake, IV Titration 26.55 Amount Nitroglycerin-D5w Pmx 50 26.55 mg In Dextrose/Water 1 250ml.bag @ 5 MCG/MIN 1.5 mls/hr IV .Q24H [facility] Rx#: [id number] Output: Chest Tube Drainage 350 510 Left Pleural/Mediastinal 350 510 Urine 380 715 45 Other: Voiding Method Indwelling Catheter Indwelling Catheter ABP, PAP, CO, CI - Last Documented Arterial Blood Pressure 124/88 Pulmonary Artery Pressure 41/21 Cardiac Output 4.5 Cardiac Index 2.1 - Labs CBC & Chem 7: 11/29/20 04:20 11/29/20 04:20 Labs: Abnormal Lab Results - Last 24 Hours (Table) 11/21/20 11/28/20 11/28/20 Range/Units 11:09 11:33 17:16 RBC (4.30-5.90) m/uL Hgb (13.0-17.5) gm/dL Hct (39.0-53.0) % Plt Count (150-450) k/uL Lymphocytes # (Manual) (1.0-4.8) k/uL Sodium (137-145) mmol/L BUN (9-20) mg/dL Glucose (74-99) mg/dL POC Glucose (mg/dL) 121 H 127 H (75-99) mg/dL Total Protein (6.3-8.2) g/dL Albumin (3.5-5.0) g/dL Crossmatch See Detail 11/28/20 11/29/20 11/29/20 Range/Units 20:52 04:20 04:20 RBC 3.49 L (4.30-5.90) m/uL Hgb 10.8 L (13.0-17.5) gm/dL Hct 31.6 L (39.0-53.0) % Plt Count 134 L (150-450) k/uL Lymphocytes # (Manual) 0.86 L (1.0-4.8) k/uL Sodium 130 L (137-145) mmol/L BUN 21 H (9-20) mg/dL Glucose 104 H (74-99) mg/dL POC Glucose (mg/dL) 137 H (75-99) mg/dL Total Protein 5.0 L (6.3-8.2) g/dL Albumin 2.7 L (3.5-5.0) g/dL Crossmatch 11/29/20 Range/Units 06:21 RBC (4.30-5.90) m/uL Hgb (13.0-17.5) gm/dL Hct (39.0-53.0) % Plt Count (150-450) k/uL Lymphocytes # (Manual) (1.0-4.8) k/uL Sodium (137-145) mmol/L BUN (9-20) mg/dL Glucose (74-99) mg/dL POC Glucose (mg/dL) 105 H (75-99) mg/dL Total Protein (6.3-8.2) g/dL Albumin (3.5-5.0) g/dL Crossmatch
--- NOTE | 2020-11-29 11:50 | P.PN ---
Subjective Progress Note Date: 11/29/20 Principal diagnosis: Coronary artery disease This is a 80-year-old male patient of Dr. Yuliya Ortiz, with past history of hypertension, hyperlipidemia, persistent atrial flutter/atrial fibrillation, obstructive sleep apnea intolerant to CPAP, morbid obesity, osteoarthritis, urethral stricture requiring straight catheterization, and remote history of PMR rate syndrome. Patient was recently evaluated for episodes of shortness of breath and intermittent chest pain. He underwent a stress test which was mildly abnormal. His cardiogram revealed preserved LV systolic function. Patient had a heart catheterization which showed 75% stenosis of the left main coronary artery, 80% stenosis to the left circumflex coronary artery, and 20% stenosis of the proximal LAD, and a 30% stenosis to his mid LAD, and 10-20% stenosis of his right coronary artery. Due to the findings of the cardiac catheterization recommendation was made for cardiothoracic surgery evaluation and coronary artery bypass grafting. On 11/27/2020 patient underwent three-vessel coronary artery bypass grafting, which was done off pump, and consisting of RICE to the LAD, SVG to the diagonal, SVG to the posterior lateral distal circumflex with endovascular vein harvest and appendectomy aortic ultrasonography. Patient also had modified Dowling-Maze bilateral pulmonary vein ablation and ligation of the left atrial appendage using a 35 mm AtriCure clip. Of note patient's preop FEV1 was 2.4 to or 80% predicted, with FVC of 3.21 or 76% of predicted, with FEV1 to FVC ratio of 105% consistent with mild restriction. Patient is seen in the postoperative period in the intensive care unit, she is sedated, and intubated on mechanical ventilator, initial vent settings were assist control with a rate of 12, tidal volume 600, FiO2 100% and PEEP of 8. Postoperative blood gases showed pO2 of 310, pCO2 of 50, and pH of 7.32. Subsequently his FiO2 was dropped down to 50%, and his rate was increased to 14. He is currently on lactated Ringer's at 50 ML per hour, Diprivan is at 20 mics per kilo per minute, nitroglycerin is a 5 mics per kilo per minute, and levo fed has just been paused. Patient received 250 mL of Cell Saver Intra-Op, no additional blood work has been transfused, she did receive 2.5 L and crystalloids intraoperatively, currently has blood pressures are mildly low, and his urine output is in the order of 25 ML per hour, patient is going to receive additional volume in the form of 5% albumin, his PA pressure is 52/22, his CVP is 15, cardiac output is 5.5, and index is 2.5. He has one mediastinal left pleural chest tubes that are connected together, with small amount of serosanguineous output, no evidence of air leak, postoperative chest x-ray has been reviewed going diffuse scattered increased lung markings possibly related to underlying pulmonary fibrosis. Consider case with cardiothoracic surgeon who informed us that the lung biopsy has been taken intraoperatively. Patient was reevaluated today on 11/28/2020, patient is doing well, he was extubated shortly after he arrived to the ICU last night. Patient is postoperative day #1. He underwent CABG with RICE to LAD, reverse saphenous vein graft to the diagonal and reverse saphenous vein graft to posterior lateral distal circumflex. Patient also had biopsy of the left upper lobe since his chest x-ray and clinical findings were consistent with possible underlying pulmonary fibrosis. Today the patient is sitting in a recliner in the intensive care unit, he was extubated at 16:29 PM. Tolerated the extubation well. Presently asymptomatic, denies any shortness of breath, patient is in sinus rhythm hemodynamically stable. And again he is on 4 L nasal cannula achieving 1250 ML with his incentive spirometer. Mediastinal and left sided pleural chest tube remained in place. On 11/29/2020 patient seen in follow-up in the intensive care unit, today is postoperative day #2, status post off-pump three-vessel coronary artery bypass grafting. Patient is doing very well, he is currently ambulating with the help of RN. Breathing comfortably, he is on 4 L of oxygen pulse ox is 94%, -7 stable, his been afebrile, hemodynamically has been stable. In sinus mechanism, his [place] catheter has been removed. On lactated Ringer's at a rate of 30 ML per hour, no other drips. His breathing is nonlabored, he is working on incentive spirometer, his chest x-ray today shows a mild cardiomegaly and coarse bilateral interstitial infiltrates, there is patchy bibasilar opacities with a slight improvement, today's labs have been reviewed, white blood cell, 6.6, hemoglobin is 10.8, sodium is 1:30, the rest of the electrolytes and renal profile were within normal limits. Patient still has a mediastinal and left ple ural chest tubes in place, with watery servicing this output, and there has been a total of 860 cc of output from the 2 chest tubes in the last 24 hours. The catheter is in place, patient is making 40-45 ML per hour. No altered mentation, his pain is fairly well controlled. No nausea vomiting or diarrhea, patient is tolerating oral intake. Objective - Vital Signs Vital signs: Vital Signs Temp 98.2 F 11/29/20 09:00 Pulse 67 11/29/20 10:00 Resp 22 11/29/20 10:00 BP 110/66 11/29/20 10:00 Pulse Ox 89 L 11/29/20 10:00 Intake & Output 11/28/20 11/29/20 11/29/20 18:59 06:59 18:59 Intake Total 575.55 230 475 Output Total 730 1225 245 Balance -154.45 -995 230 Weight 102.1 kg 103.3 kg Intake: IV 549 230 115 CO/CI 10 Lactated Ringers 1,000 ml 500 200 100 @ 20 mls/hr IV .Q24H ELIDA Rx#:[id number] Pressure Bags 39 30 15 Intake, IV Titration 26.55 Amount Nitroglycerin-D5w Pmx 50 26.55 mg In Dextrose/Water 1 250ml.bag @ 5 MCG/MIN 1.5 mls/hr IV .Q24H ELIDA Rx#: [id number] Oral 360 Output: Chest Tube Drainage 350 510 50 Left Pleural/Mediastinal 350 510 50 Urine 380 715 195 Other: Voiding Method Indwelling Catheter Indwelling Catheter Indwelling Catheter ABP, PAP, CO, CI - Last Documented Arterial Blood Pressure 87/58 Pulmonary Artery Pressure 41/21 Cardiac Output 4.5 Cardiac Index 2.1 - Exam GENERAL EXAM: Awake and alert, oriented 3, 80-year-old white male, on 4 L of oxygen a pulse ox of 94%. Patient is currently ambulating with 2 RNs, tolerating activity well HEAD: Normocephalic/atraumatic. EYES: Normal reaction of pupils, equal size. Conjunctiva pink, sclera white. NOSE: Clear with pink turbinates. THROAT: No erythema or exudates. NECK: No masses, no JVD, no thyroid enlargement, no adenopathy. CHEST: No chest wall deformity. Symmetrical expansion. Midsternal incision is clean dry and intact, 1 mediastinal left pleural chest tubes connected together, to the same Pleur-evac, with no evidence of air leak, to wall suction, and small amount of sanguinous output in the Pleur-evac LUNGS: Equal air entry with no crackles, wheeze, rhonchi or dullness. CVS: Regular rate and rhythm, normal S1 and S2, no gallops, no murmurs, no rubs ABDOMEN: Soft, nontender. No hepatosplenomegaly, normal bowel sounds, no guarding or rigidity. EXTREMITIES: No clubbing, no edema, no cyanosis, 2+ pulses and upper and lower extremities. Bilateral lower extremities with SCDs on, left leg incisions cove red with surgical dressings MUSCULOSKELETAL: Muscle strength and tone normal. SPINE: No scoliosis or deformity SKIN: No rashes CENTRAL NERVOUS SYSTEM: Sedated, intubated. No focal deficits, tone is normal in all 4 extremities. - Labs CBC & Chem 7: 11/29/20 04:20 11/29/20 04:20 Labs: Abnormal Lab Results - Last 24 Hours (Table) 11/21/20 11/28/20 11/28/20 Range/Units 11:09 17:16 20:52 RBC (4.30-5.90) m/uL Hgb (13.0-17.5) gm/dL Hct (39.0-53.0) % Plt Count (150-450) k/uL Lymphocytes # (Manual) (1.0-4.8) k/uL Sodium (137-145) mmol/L BUN (9-20) mg/dL Glucose (74-99) mg/dL POC Glucose (mg/dL) 127 H 137 H (75-99) mg/dL Total Protein (6.3-8.2) g/dL Albumin (3.5-5.0) g/dL Crossmatch See Detail 11/29/20 11/29/20 11/29/20 Range/Units 04:20 04:20 06:21 RBC 3.49 L (4.30-5.90) m/uL Hgb 10.8 L (13.0-17.5) gm/dL Hct 31.6 L (39.0-53.0) % Plt Count 134 L (150-450) k/uL Lymphocytes # (Manual) 0.86 L (1.0-4.8) k/uL Sodium 130 L (137-145) mmol/L BUN 21 H (9-20) mg/dL Glucose 104 H (74-99) mg/dL POC Glucose (mg/dL) 105 H (75-99) mg/dL Total Protein 5.0 L (6.3-8.2) g/dL Albumin 2.7 L (3.5-5.0) g/dL Crossmatch Assessment and Plan Plan: Assessment: #1. Multivessel coronary artery disease, symptomatic, status post off-pump three-vessel coronary artery bypass grafting with RICE to LAD, SVG to the adina gonal, SVG to the posterior lateral distal circumflex, with endovascular vein harvest, modified Dowling maze bilateral pulmonary vein ablation, and ligation of the left atrial appendage on 11/27/2020, postoperative day #2 #2. 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 Hypertension #4. Hyperlipidemia #5. Persistent atrial flutter/atrial fibrillation on Eliquis #6. Obstructive sleep apnea, noncompliant with CPAP #7. History of urethral stricture requiring straight catheterization #8. Remote history of smoking, quit smoking 25 years ago #9. 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 Routine postoperative ventilator management Plan: Continue current medical treatment Lung biopsy results have been noted, it was also sent to the [facility], we will wait for the addendum Clinically stable, doing well Ambulating, breathing comfortably, pain is well controlled and hemodynamically stable Today's chest x-ray has been reviewed, labs reviewed Continue encouraging deep breathing and coughing We'll continue to follow I performed a history & physical examination of the patient and discussed their management with my nurse practitioner, Yane Reis. I reviewed the nurse practitioner's note and agree with the documented findings and plan of care. Lung sounds are positive fordiminished breath sounds. The findings and the impression was discussed with the patient. I attest to the documentation by the nurse practitioner. Time with Patient: Less than 30
[2020-11-29 12:03] LABS: Glucose,Whole Blood 115 mg/dL (75-99)
--- NOTE | 2020-11-29 12:34 | P.PN ---
Subjective Progress Note Date: 11/29/20 This is a 80-year-old gentleman status post CABG RICE-LAD, SVG-diagonal branch and posterior circumflex, modified MAZE, cardioversion and lung biopsy postop day #1 , extubated last night. Maintaining O2 sats in the 90s on 4 L nasal cannula. Incentive spirometer ranging from 1250 to 1500. Chest x-ray reporting small bilateral pleural effusions, mild interstitial edema, and possible underlying moderate to advanced pulmonary fibrosis in a patient who was a former smoker. Insulin drip converted over to sliding scale. Blood sugars controlled. Telemetry sinus rhythm. Complains of surgical site pain, denies chest pain, palpitations or shortness of breath. 11/29/2020 Ambulating in the hallway, tolerating exertion well. Maintaining O2 sats in the 90s on 4 L nasal cannula. CXR reporting mild cardiomegaly, persistent coarse bilateral interstitial infiltrates, improving patchy bibasilar opacities. Lung biopsy reporting consistent with interstitial pneumonitis, concerning for UIP, sent out to [facility] for further evaluation.Telemetry sinus rhythm. Good diet intake, denies nausea vomiting or diarrhea. Passing flatus, no bowel movement. Accu-Cheks controlled. Sodium 1:30. Afebrile, normal WBC. Renal function stable. Objective - Vital Signs Vital signs: Vital Signs Temp 98.2 F 11/29/20 09:00 Pulse 67 11/29/20 10:00 Resp 22 11/29/20 10:00 BP 110/66 11/29/20 10:00 Pulse Ox 89 L 11/29/20 10:00 Intake & Output 11/28/20 11/29/20 11/29/20 18:59 06:59 18:59 Intake Total 575.55 230 475 Output Total 730 1225 245 Balance -154.45 -995 230 Weight 102.1 kg 103.3 kg Intake: IV 549 230 115 CO/CI 10 Lactated Ringers 1,000 ml 500 200 100 @ 20 mls/hr IV .Q24H ELIDA Rx#:[id number] Pressure Bags 39 30 15 Intake, IV Titration 26.55 Amount Nitroglycerin-D5w Pmx 50 26.55 mg In Dextrose/Water 1 250ml.bag @ 5 MCG/MIN 1.5 mls/hr IV .Q24H ELIDA Rx#: [id number] Oral 360 Output: Chest Tube Drainage 350 510 50 Left Pleural/Mediastinal 350 510 50 Urine 380 715 195 Other: Voiding Method Indwelling Catheter Indwelling Catheter Indwelling Catheter ABP, PAP, CO, CI - Last Documented Arterial Blood Pressure 87/58 Pulmonary Artery Pressure 41/21 Cardiac Output 4.5 Cardiac Index 2.1 - Exam PHYSICAL EXAM: VITAL SIGNS: [As above] GENERAL: Standing up at bedside, no acute distress HEENT: Conjunctivae normal. eyes normal. NECK: No JVD. No thyroid enlargement. No LNs CARDIOVASCULAR: S1, S2 regular. No murmur RESPIRATION: Breath sounds diminished in the bases. Left pleural and mediastinal chest tubes present. ABDOMEN: Soft, nontender . No guarding. no masses palpable.positive Bowel sounds. LEGS: No edema. no swelling PSYCHIATRY: Alert and oriented X3, mood and affect normal. NERVOUS SYSTEM: Cranial N 2-12 grossly normal. Moves all 4 limbs. No focal deficits. Strength and sensation grossly intact. Skin: Warm and dry, no rash - Labs CBC & Chem 7: 11/29/20 04:20 11/29/20 04:20 Labs: Abnormal Lab Results - Last 24 Hours (Table) 11/21/20 11/28/20 11/28/20 Range/Units 11:09 17:16 20:52 RBC (4.30-5.90) m/uL Hgb (13.0-17.5) gm/dL Hct (39.0-53.0) % Plt Count (150-450) k/uL Lymphocytes # (Manual) (1.0-4.8) k/uL Sodium (137-145) mmol/L BUN (9-20) mg/dL Glucose (74-99) mg/dL POC Glucose (mg/dL) 127 H 137 H (75-99) mg/dL Total Protein (6.3-8.2) g/dL Albumin (3.5-5.0) g/dL Crossmatch See Detail 11/29/20 11/29/20 11/29/20 Range/Units 04:20 04:20 06:21 RBC 3.49 L (4.30-5.90) m/uL Hgb 10.8 L (13.0-17.5) gm/dL Hct 31.6 L (39.0-53.0) % Plt Count 134 L (150-450) k/uL Lymphocytes # (Manual) 0.86 L (1.0-4.8) k/uL Sodium 130 L (137-145) mmol/L BUN 21 H (9-20) mg/dL Glucose 104 H (74-99) mg/dL POC Glucose (mg/dL) 105 H (75-99) mg/dL Total Protein 5.0 L (6.3-8.2) g/dL Albumin 2.7 L (3.5-5.0) g/dL Crossmatch 11/29/20 Range/Units 12:01 RBC (4.30-5.90) m/uL Hgb (13.0-17.5) gm/dL Hct (39.0-53.0) % Plt Count (150-450) k/uL Lymphocytes # (Manual) (1.0-4.8) k/uL Sodium (137-145) mmol/L BUN (9-20) mg/dL Glucose (74-99) mg/dL POC Glucose (mg/dL) 115 H (75-99) mg/dL Total Protein (6.3-8.2) g/dL Albumin (3.5-5.0) g/dL Crossmatch Assessment and Plan Assessment: Status post CABG, multi-vessel CAD Possible pulmonary fibrosis, status post left upper lobe lung biopsy. 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 Chronic Paroxysmal atrial fibrillation, currently sinus rhythm Acute blood loss anemia with thrombocytopenia, postop, expected. Obstructive sleep apnea Hypertension Hyperlipidemia History of smoking, quit 27 years ago History of Guillain-Quinteros syndrome Obesity, BMI 31.4 Plan: Continue on current medication regime ,monitoring and symptomatic treatment. Aggressive pulmonary toileting with incentive spirometer reinforced. Increase ambulation as tolerated. The impression and plan of care has been dictated as directed. : I performed a history and examination of this patient, discussed the same with the dictator. I agree with the dictator's note ,documented as a scribe. Any additional findings or plans will be noted.
[2020-11-29] MEDS: HYDROcodone/APAP 5-325MG 1 EACH TAB PO PRN ×2 (13:10→23:42)
[2020-11-29 17:11] LABS: Glucose,Whole Blood 115 mg/dL (75-99)
[2020-11-29 20:34] LABS: Glucose,Whole Blood 115 mg/dL (75-99)
[2020-11-29] MEDS: ATORVASTATIN 80 MG TAB PO SCH (20:44)
[2020-11-29] MEDS: ASCORBIC ACID 500 MG TAB PO SCH (20:44)
[2020-11-29] MEDS: CHOLECALCIFEROL 25 MCG (1000 IU) TABLET PO SCH (20:44)
[2020-11-29] MEDS: SENNOSIDES-DOCUSATE SODIUM 1 EACH TAB PO SCH (20:44)
[2020-11-29] MEDS: MULTIVITAMINS, THERA 1 EACH TAB PO SCH (20:44)
[2020-11-30 04:36] LABS: Basophils % (A) 0 %; Eosinophils # (A) 0.2 k/uL (0-0.7); Eosinophils % (A) 3 %; HCT 32.8 % (39.0-53.0); HGB 11.2 gm/dL (13.0-17.5); Lymphocytes # (A) 1.3 k/uL (1.0-4.8); Lymphocytes % (A) 21 %; MCH 31.3 pg (25.0-35.0); MCHC 34.1 g/dL (31.0-37.0); MCV 91.8 fL (80.0-100.0); Mean Platelet Volume 9.2; Monocytes # (A) 0.4 k/uL (0-1.0); Monocytes % (A) 6 %; Neutrophils # (A) 4.3 k/uL (1.3-7.7); Neutrophils % (A) 68 %; Platelet Count 169 k/uL (150-450); RBC 3.58 m/uL (4.30-5.90); RDW 14.7 % (11.5-15.5); WBC 6.3 k/uL (3.8-10.6)
[2020-11-30 04:59] LABS: ALT 9 U/L (4-49); AST 25 U/L (17-59); African American GFR (CKD) >90 (>60 ml/min/1.73 sqM); Albumin 2.7 g/dL (3.5-5.0); Alkaline Phosphatase 58 U/L (38-126); Anion Gap 7 mmol/L; Blood Urea Nitrogen 19 mg/dL (9-20); Calcium 8.7 mg/dL (8.4-10.2); Carbon Dioxide 24 mmol/L (22-30); Chloride 101 mmol/L (98-107); Glucose 96 mg/dL (74-99); Non-African American GFR(CKD) 83 (>60 ml/min/1.73 sqM); Potassium 4.2 mmol/L (3.5-5.1); Sodium 132 mmol/L (137-145); Total Protein 5.1 g/dL (6.3-8.2)
[2020-11-30] MEDS: PANTOPRAZOLE 40 MG TABLET PO SCH (06:43)
[2020-11-30] MEDS: KETOROLAC 15 MG/ML 1 ML VIAL IVP SCH ×4 (06:43→23:58)
[2020-11-30 06:53] LABS: Glucose,Whole Blood 118 mg/dL (75-99)
[2020-11-30] MEDS: INSULIN ASPART (NovoLOG) 100 UNIT/ML VIAL SQ SCH ×4 (07:08→21:00)
[2020-11-30] MEDS: HEPARIN SODIUM,PORCINE/PF 5,000 UNIT/0.5 ML SYRINGE SQ SCH ×3 (07:47→23:58)
[2020-11-30] MEDS: hydrALAZINE HCL 25 MG TAB PO SCH ×3 (07:48→23:58)
[2020-11-30] MEDS: CLOPIDOGREL 75 MG TAB PO SCH (07:48)
[2020-11-30] MEDS: ZINC SULFATE 220 MG CAP PO SCH (07:48)
[2020-11-30] MEDS: METOPROLOL TARTRATE 12.5 MG TAB PO SCH ×2 (07:48→21:31)
[2020-11-30] MEDS: MAGNESIUM OXIDE 400 MG TAB PO SCH (07:48)
[2020-11-30] MEDS: ASPIRIN 325 MG TAB PO SCH (07:48)
[2020-11-30] MEDS: IPRATROPIUM-ALBUTEROL 3 ML NEB INHALATION SCH ×4 (08:05→20:25)
--- NOTE | 2020-11-30 08:57 | XR ---
EXAMINATION TYPE: XR chest 1V portable DATE OF EXAM: 11/30/2020 COMPARISON: 11/29/2020 INDICATION: Postcardiac surgery TECHNIQUE: Single frontal view of the chest is obtained. FINDINGS: The heart size is borderline enlarged.. The pulmonary vasculature is normal. Diffuse increased lung markings are present. Correlate for pulmonary fibrosis. Some volume overload c an be considered. Sternotomy wires are present from cardiac surgery. Left-sided chest tube is present. No pneumothorax is evident. IMPRESSION: 1. Mild cardiomegaly. 2. Diffuse increased lung markings. Volume overload or pulmonary fibrosis can be considered.
[2020-11-30 11:43] LABS: Glucose,Whole Blood 112 mg/dL (75-99)
[2020-11-30] MEDS: MAGNESIUM HYDROXIDE 2,400 MG/10 ML CUP PO PRN ×2 (12:17→21:31)
--- NOTE | 2020-11-30 12:18 | P.PN ---
Subjective Progress Note Date: 11/30/20 This is a 80-year-old gentleman status post CABG RICE-LAD, SVG-diagonal branch and posterior circumflex, modified MAZE, cardioversion and lung biopsy postop day #1 , extubated last night. Maintaining O2 sats in the 90s on 4 L nasal cannula. Incentive spirometer ranging from 1250 to 1500. Chest x-ray reporting small bilateral pleural effusions, mild interstitial edema, and possible underlying moderate to advanced pulmonary fibrosis in a patient who was a former smoker. Insulin drip converted over to sliding scale. Blood sugars controlled. Telemetry sinus rhythm. Complains of surgical site pain, denies chest pain, palpitations or shortness of breath. 11/29/2020 Ambulating in the hallway, tolerating exertion well. Maintaining O2 sats in the 90s on 4 L nasal cannula. CXR reporting mild cardiomegaly, persistent coarse bilateral interstitial infiltrates, improving patchy bibasilar opacities. Lung biopsy reporting consistent with interstitial pneumonitis, concerning for UIP, sent out to [facility] for further evaluation.Telemetry sinus rhythm. Good diet intake, denies nausea vomiting or diarrhea. Passing flatus, no bowel movement. Accu-Cheks controlled. Sodium 1:30. Afebrile, normal WBC. Renal function stable. 11/30/2020 continues requiring 4 L nasal cannula O2 to maintain O2 sats in the 90s. Chest X-ray reporting moderate cardiomegaly, diffuse increased lung markings, pulmonary fibrosis. Sodium 132. Blood sugars controlled. Renal function stable, afebrile, normal WBC. Preparing to ambulate this morning. Objective - Vital Signs Vital signs: Vital Signs Temp 97.8 F 11/30/20 04:00 Pulse 87 11/30/20 08:15 Resp 17 11/30/20 04:00 BP 97/50 11/30/20 04:00 Pulse Ox 97 11/30/20 08:05 Intake & Output 11/29/20 11/30/20 11/30/20 18:59 06:59 18:59 Intake Total 724 600 Output Total 355 2560 Balance 369 -1960 Weight 102.9 kg Intake: IV 124 Lactated Ringers 1,000 ml 100 @ 20 mls/hr IV .Q24H ELIDA Rx#:[id number] Pressure Bags 24 Oral 600 600 Output: Chest Tube Drainage 160 160 Left Pleural/Mediastinal 160 160 Urine 195 2400 Other: Voiding Method Self-Catheterization Self-Catheterization ABP, PAP, CO, CI - Last Documented Arterial Blood Pressure 87/58 Pulmonary Artery Pressure 41/21 Cardiac Output 4.5 Cardiac Index 2.1 - Exam PHYSICAL EXAM: VITAL SIGNS: [As above] GENERAL: Alert and oriented 3 ,Standing up at bedside, no acute distress HEENT: Conjunctivae normal. eyes normal. NECK: No JVD. No thyroid enlargement. No LNs CARDIOVASCULAR: S1, S2 regular. No murmur RESPIRATION: Breath sounds diminished in the bases. Left pleural chest tube present. ABDOMEN: Soft, nontender . No guarding. no masses palpable.positive Bowel sounds. LEGS: No edema. no swelling NERVOUS SYSTEM: Cranial N 2-12 grossly normal.No focal deficits. Strength and sensation grossly intact. Skin: Warm and dry, no rash - Labs CBC & Chem 7: 11/30/20 03:46 11/30/20 03:46 Labs: Abnormal Lab Results - Last 24 Hours (Table) 11/29/20 11/29/20 11/29/20 Range/Units 12:01 17:09 20:32 RBC (4.30-5.90) m/uL Hgb (13.0-17.5) gm/dL Hct (39.0-53.0) % Sodium (137-145) mmol/L POC Glucose (mg/dL) 115 H 115 H 115 H (75-99) mg/dL Total Protein (6.3-8.2) g/dL Albumin (3.5-5.0) g/dL 11/30/20 11/30/20 11/30/20 Range/Units 03:46 03:46 06:51 RBC 3.58 L (4.30-5.90) m/uL Hgb 11.2 L (13.0-17.5) gm/dL Hct 32.8 L (39.0-53.0) % Sodium 132 L (137-145) mmol/L POC Glucose (mg/dL) 118 H (75-99) mg/dL Total Protein 5.1 L (6.3-8.2) g/dL Albumin 2.7 L (3.5-5.0) g/dL Assessment and Plan Assessment: Status post CABG, multi-vessel CAD Possible pulmonary fibrosis, status post left upper lobe lung biopsy. 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 Chronic Paroxysmal atrial fibrillation, currently sinus rhythm Acute blood loss anemia with thrombocytopenia, postop, expected. Obstructive sleep apnea Hypertension Hyperlipidemia History of smoking, quit 27 years ago History of Guillain-Quinteros syndrome Obesity, BMI 31.4 Plan: Continue on current medication regime ,monitoring and symptomatic treatment. Continue increase ambulation as tolerated. Has not been able to wean down further from 4 L nasal cannula O2. Maintain aggressive pulmonary toileting with incentive spirometer reinforced. The impression and plan of care has been dictated as directed. : I performed a history and examination of this patient, discussed the same with the dictator. I agree with the dictator's note ,documented as a scribe. Any additional findings or plans will be noted.
--- NOTE | 2020-11-30 12:58 | P.PN ---
Subjective Progress Note Date: 11/30/20 Principal diagnosis: Coronary artery disease This is a 80-year-old male patient of Dr. Yuliya Ortiz, with past history of hypertension, hyperlipidemia, persistent atrial flutter/atrial fibrillation, obstructive sleep apnea intolerant to CPAP, morbid obesity, osteoarthritis, urethral stricture requiring straight catheterization, and remote history of PMR rate syndrome. Patient was recently evaluated for episodes of shortness of breath and intermittent chest pain. He underwent a stress test which was mildly abnormal. His cardiogram revealed preserved LV systolic function. Patient had a heart catheterization which showed 75% stenosis of the left main coronary artery, 80% stenosis to the left circumflex coronary artery, and 20% stenosis of the proximal LAD, and a 30% stenosis to his mid LAD, and 10-20% stenosis of his right coronary artery. Due to the findings of the cardiac catheterization recommendation was made for cardiothoracic surgery evaluation and coronary artery bypass grafting. On 11/27/2020 patient underwent three-vessel coronary artery bypass grafting, which was done off pump, and consisting of RICE to the LAD, SVG to the diagonal, SVG to the posterior lateral distal circumflex with endovascular vein harvest and appendectomy aortic ultrasonography. Patient also had modified Dowling-Maze bilateral pulmonary vein ablation and ligation of the left atrial appendage using a 35 mm AtriCure clip. Of note patient's preop FEV1 was 2.4 to or 80% predicted, with FVC of 3.21 or 76% of predicted, with FEV1 to FVC ratio of 105% consistent with mild restriction. Patient is seen in the postoperative period in the intensive care unit, she is sedated, and intubated on mechanical ventilator, initial vent settings were assist control with a rate of 12, tidal volume 600, FiO2 100% and PEEP of 8. Postoperative blood gases showed pO2 of 310, pCO2 of 50, and pH of 7.32. Subsequently his FiO2 was dropped down to 50%, and his rate was increased to 14. He is currently on lactated Ringer's at 50 ML per hour, Diprivan is at 20 mics per kilo per minute, nitroglycerin is a 5 mics per kilo per minute, and levo fed has just been paused. Patient received 250 mL of Cell Saver Intra-Op, no additional blood work has been transfused, she did receive 2.5 L and crystalloids intraoperatively, currently has blood pressures are mildly low, and his urine output is in the order of 25 ML per hour, patient is going to receive additional volume in the form of 5% albumin, his PA pressure is 52/22, his CVP is 15, cardiac output is 5.5, and index is 2.5. He has one mediastinal left pleural chest tubes that are connected together, with small amount of serosanguineous output, no evidence of air leak, postoperative chest x-ray has been reviewed going diffuse scattered increased lung markings possibly related to underlying pulmonary fibrosis. Consider case with cardiothoracic surgeon who informed us that the lung biopsy has been taken intraoperatively. Patient was reevaluated today on 11/28/2020, patient is doing well, he was extubated shortly after he arrived to the ICU last night. Patient is postoperative day #1. He underwent CABG with RICE to LAD, reverse saphenous vein graft to the diagonal and reverse saphenous vein graft to posterior lateral distal circumflex. Patient also had biopsy of the left upper lobe since his chest x-ray and clinical findings were consistent with possible underlying pulmonary fibrosis. Today the patient is sitting in a recliner in the intensive care unit, he was extubated at 16:29 PM. Tolerated the extubation well. Presently asymptomatic, denies any shortness of breath, patient is in sinus rhythm hemodynamically stable. And again he is on 4 L nasal cannula achieving 1250 ML with his incentive spirometer. Mediastinal and left sided pleural chest tube remained in place. On 11/29/2020 patient seen in follow-up in the intensive care unit, today is postoperative day #2, status post off-pump three-vessel coronary artery bypass grafting. Patient is doing very well, he is currently ambulating with the help of RN. Breathing comfortably, he is on 4 L of oxygen pulse ox is 94%, -7 stable, his been afebrile, hemodynamically has been stable. In sinus mechanism, his [place] catheter has been removed. On lactated Ringer's at a rate of 30 ML per hour, no other drips. His breathing is nonlabored, he is working on incentive spirometer, his chest x-ray today shows a mild cardiomegaly and coarse bilateral interstitial infiltrates, there is patchy bibasilar opacities with a slight improvement, today's labs have been reviewed, white blood cell, 6.6, hemoglobin is 10.8, sodium is 1:30, the rest of the electrolytes and renal profile were within normal limits. Patient still has a mediastinal and left ple ural chest tubes in place, with watery servicing this output, and there has been a total of 860 cc of output from the 2 chest tubes in the last 24 hours. The catheter is in place, patient is making 40-45 ML per hour. No altered mentation, his pain is fairly well controlled. No nausea vomiting or diarrhea, patient is tolerating oral intake. On 11/30/2020 patient seen in follow-up in intensive care unit, today's postoperative day #3, status post off-pump three-vessel coronary artery bypass grafting. Patient is doing very well, breathing comfortably, currently on 4 L of oxygen pulse ox of 96%, hemodynamically stable. He is not on any IV fluids right now. His been working on incentive spirometer. His left pleural chest tube remains in place, his mediastinal chest tube has been removed, today's chest x-ray has been reviewed showing diffuse increased lung markings. Today's labs have been reviewed, his white count is 6.3, hemoglobin is 11.2, sodium is 132, the rest of electrolytes and renal profile were within normal limits. Yesterday she received a dose of IV Lasix, and patient has produced 2.9 L and urine output over the last 24 hours, and he is in -1.5 L net fluid balance over the last 24 hours. Overall breathing comfortably, denies any specific complaints. His pain is fairly well-controlled. His surgical incisions are clean dry and intact, sternum stable. He has been tolerating ambulation. Objective - Vital Signs Vital signs: Vital Signs Temp 98.2 F 11/30/20 09:00 Pulse 82 11/30/20 11:47 Resp 20 11/30/20 10:00 BP 128/62 11/30/20 09:00 Pulse Ox 96 11/30/20 09:00 Intake & Output 11/29/20 11/30/20 11/30/20 18:59 06:59 18:59 Intake Total 724 600 360 Output Total 355 2560 0 Balance 369 -1960 360 Weight 102.9 kg Intake: IV 124 Lactated Ringers 1,000 ml 100 @ 20 mls/hr IV .Q[facility]H [facility] Rx#:[id number] Pressure Bags 24 Oral 600 600 360 Output: Chest Tube Drainage 160 160 Left Pleural/Mediastinal 160 160 Urine 195 2400 0 Other: Voiding Method Self-Catheterization Self-Catheterization Self-Catheterization ABP, PAP, CO, CI - Last Documented Arterial Blood Pressure 87/58 Pulmonary Artery Pressure 41/21 Cardiac Output 4.5 Cardiac Index 2.1 - Exam GENERAL EXAM: Awake and alert, oriented 3, 80-year-old white male, on 4 L of oxygen a pulse ox of 96%. Patient is currently ambulating with 2 RNs, tolerating activity well HEAD: Normocephalic/atraumatic. EYES: Normal reaction of pupils, equal size. Conjunctiva pink, sclera white. NOSE: Clear with pink turbinates. THROAT: No erythema or exudates. NECK: No masses, no JVD, no thyroid enlargement, no adenopathy. CHEST: No chest wall deformity. Symmetrical expansion. Midsternal incision is clean dry and intact, 1 left pleural chest tube with no evidence of air leak, to wall suction, and small amount of sanguinous output in the Pleur-evac LUNGS: Equal air entry with no crackles, wheeze, rhonchi or dullness. CVS: Regular rate and rhythm, normal S1 and S2, no gallops, no murmurs, no rubs ABDOMEN: Soft, nontender. No hepatosplenomegaly, normal bowel sounds, no guard ing or rigidity. EXTREMITIES: No clubbing, no edema, no cyanosis, 2+ pulses and upper and lower extremities. Bilateral lower extremities with SCDs on, left leg incisions covered with surgical dressings MUSCULOSKELETAL: Muscle strength and tone normal. SPINE: No scoliosis or deformity SKIN: No rashes CENTRAL NERVOUS SYSTEM: Awake and alert, oriented 3 No focal deficits, tone is normal in all 4 extremities. - Labs CBC & Chem 7: 11/30/20 03:46 11/30/20 03:46 Labs: Abnormal Lab Results - Last 24 Hours (Table) 11/29/20 11/29/20 11/30/20 Range/Units 17:09 20:32 03:46 RBC 3.58 L (4.30-5.90) m/uL Hgb 11.2 L (13.0-17.5) gm/dL Hct 32.8 L (39.0-53.0) % Sodium (137-145) mmol/L POC Glucose (mg/dL) 115 H 115 H (75-99) mg/dL Total Protein (6.3-8.2) g/dL Albumin (3.5-5.0) g/dL 11/30/20 11/30/20 11/30/20 Range/Units 03:46 06:51 11:42 RBC (4.30-5.90) m/uL Hgb (13.0-17.5) gm/dL Hct (39.0-53.0) % Sodium 132 L (137-145) mmol/L POC Glucose (mg/dL) 118 H 112 H (75-99) mg/dL Total Protein 5.1 L (6.3-8.2) g/dL Albumin 2.7 L (3.5-5.0) g/dL Assessment and Plan Plan: Assessment: #1. Multivessel coronary artery disease, symptomatic, status post off-pump three-vessel coronary artery bypass grafting with RICE to LAD, SVG to the diagonal, SVG to the posterior lateral distal circumflex, with endovascular vein harvest, modified Dowling maze bilateral pulmonary vein ablation, and ligation of the left atrial appendage on 11/27/2020, postoperative day #3 #2. 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 Hypertension #4. Hyperlipidemia #5. Persistent atrial flutter/atrial fibrillation on Eliquis #6. Obstructive sleep apnea, noncompliant with CPAP #7. History of urethral stricture requiring straight catheterization #8. Remote history of smoking, quit smoking 25 years ago #9. 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 Routine postoperative ventilator management Plan: Continue current medical treatment Today's chest x-ray reviewed Continue bronchodilators Continue encouraging deep breathing and coughing Results of the lung wedge biopsy were reviewed with the patient Awaiting addendum from the [facility] Further treatment for the UIP will be discussed with the patient on an outpatient basis after discharge We'll continue to follow I performed a history & physical examination of the patient and discussed their management with my nurse practitioner, Yane Reis. I reviewed the nurse practitioner's note and agree with the documented findings and plan of care. Lung sounds are positive fordiminished breath sounds. The findings and the impression was discussed with the patient. I attest to the documentation by the nurse practitioner. Time with Patient: Less than 30
--- NOTE | 2020-11-30 13:06 | P.PN ---
Subjective Progress Note Date: 11/30/20 Principal diagnosis: Coronary artery disease with left main disease, atrial flutter present on entrance to the operating room, pneumopathy with suspected pulmonary fibrosis. 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 POD #3 off-pump coronary artery bypass grafting 3 with left internal mammary artery to the left anterior descending artery, reverse saphenous vein graft to the diagonal artery, reverse saphenous vein graft to posterior lateral distal circumflex, endovascular vein harvest from the left upper calf to the groin, epi-aortic ultrasonography, modified Dowling maze bilateral pulmonary vein ablation and ligation of the left atrial appendage with a 35 mm AtriCure clip, electrical cardioversion, biopsy of the left upper lobe of the lung. Postoperative acute blood loss anemia and thrombocytopenia, expected post cardiac surgery given hemodilution. No postoperative hypoxic respiratory failure (documented in the medical consultation)-patient normal post operative course with mechanical ventilation due to surgery, extubated within 4 hours of OR exit time. The patient was seen in follow-up today 11/30/2020 at his bedside in the intensive care unit. Currently sitting up to the chair, is awake, alert and oriented 3 and is in no acute distress. Denies any complaints of surgical type pain or shortness of breath at this time. Oxygen saturations are 97% on 4 L nasal cannula and he is achieving 1500 mL on his incentive spirometry with encouragement. Left pleural chest tube remains in place to low continuous wall suction -20 cm H2O. Draining thin serosanguineous drainage with 35 mL output in the last 8 hours and 220 mL output in the last 24 hours. Bedside telemetry showing normal sinus rhythm heart rate 93 BPM. He remains hemodynamically stable and is currently on no inotropic or pressor support. The patient reports that he has been up ambulating in the intensive care unit hallway without difficulty and with standby assist only and went for 5 walks yesterday. Objective - Vital Signs Vital signs: Vital Signs Temp 97.8 F 11/30/20 04:00 Pulse 77 11/30/20 04:00 Resp 17 11/30/20 04:00 BP 97/50 11/30/20 04:00 Pulse Ox 90 L 11/30/20 04:00 Intake & Output 11/29/20 11/30/20 11/30/20 18:59 06:59 18:59 Intake Total 724 600 Output Total 355 2560 Balance 369 -1960 Weight 102.9 kg Intake: IV 124 Lactated Ringers 1,000 ml 100 @ 20 mls/hr IV .Q24H [facility] Rx#:[id number] Pressure Bags 24 Oral 600 600 Output: Chest Tube Drainage 160 160 Left Pleural/Mediastinal 160 160 Urine 195 2400 Other: Voiding Method Self-Catheterization Self-Catheterization ABP, PAP, CO, CI - Last Documented Arterial Blood Pressure 87/58 Pulmonary Artery Pressure 41/21 Cardiac Output 4.5 Cardiac Index 2.1 - Exam CONSTITUTIONAL: Sitting up to the bedside chair in the intensive care unit, appears comfortable, cooperative, no apparent acute distress. HEENT: Neck is supple, no JVD, no lymphadenopathy. RESPIRATORY: Lungs sounds essentially clear throughout, diminished to his bilateral bases. Respirations are symmetrical and nonlabored. Currently on 4 L nasal cannula with oxygen saturations 97%. Able to achieve 1500 mL on his incentive spirometry. Strong cough. CARDIOVASCULAR: Regular rhythm and rate. S1 and S2 present, negative for S3, gallop or murmur. Sternum is stable. Palpable peripheral pulses bilaterally, +1 edema to his bilateral lower extremities. No calf pain or tenderness noted. Heart hugger in place with patient demonstrating appropriate use. Knee-high SHRUTHI hose and sequential compression devices in place to his bilateral lower extremities. Bedside telemetry showing normal sinus rhythm heart rate 93 BPM. GASTROINTESTINAL: Abdomen soft, nontender, nondistended. Active bowel sounds present 4 quadrants. Tolerating diet. Passing flatus. No guarding or rigid ity. GENITOURINARY: Self cathing, 1.2 L of clear yellow urine output in the last 8 hours. INTEGUMENTARY: Skin is warm and dry with no evidence of clubbing or cyanosis. Midline sternal incision clean dry and well approximated, covered with dry intact dressing. Left lower extremity EVH sites well approximated without redness or drainage. NEUROLOGIC: Cranial nerves II through XII intact. No focal deficits. MUSKULOSKELETAL: Able to move all extremities, strength equal bilaterally. PSYCHIATRIC: Alert and oriented to person place and time, appropriate affect, intact judgment and insight. INVASIVE LINES AND TUBES: Left pleural chest tube present and connected to low continuous wall suction, no air leaks present. Draining thin serosanguineous drainage with 35 mL output in the last 8 hours and 220 mL output in the last 24 hours. - Allied health notes Allied health notes reviewed: nursing - Labs CBC & Chem 7: 11/30/20 03:46 11/30/20 03:46 Labs: Abnormal Lab Results - Last 24 Hours (Table) 11/29/20 11/29/20 11/29/20 Range/Units 12:01 17:09 20:32 RBC (4.30-5.90) m/uL Hgb (13.0-17.5) gm/dL Hct (39.0-53.0) % Sodium (137-145) mmol/L POC Glucose (mg/dL) 115 H 115 H 115 H (75-99) mg/dL Total Protein (6.3-8.2) g/dL Albumin (3.5-5.0) g/dL 11/30/20 11/30/20 11/30/20 Range/Units 03:46 03:46 06:51 RBC 3.58 L (4.30-5.90) m/uL Hgb 11.2 L (13.0-17.5) gm/dL Hct 32.8 L (39.0-53.0) % Sodium 132 L (137-145) mmol/L POC Glucose (mg/dL) 118 H (75-99) mg/dL Total Protein 5.1 L (6.3-8.2) g/dL Albumin 2.7 L (3.5-5.0) g/dL - Imaging and Cardiology Chest x-ray: report reviewed, image reviewed Assessment and Plan Assessment: 1. 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 Atrial flutter present on entrance to the operating room, status post electrical cardioversion 3. Pneumopathy with suspected pulmonary fibrosis, status post biopsy of the left upper lobe of the lung, preliminary results consistent with UIP, await final path from of 4. History of hypertension 5. Hyperlipidemia, treated, cholesterol 141, LDL 82 6. Paroxysmal atrial flutter 7. Paroxysmal atrial fibrillation on Eliquis for anticoagulation, modified Dowling maze, ligation of the left atrial appendage 8. Previous tobacco dependence, preoperative FEV1 80% of predicted 9. Obstructive sleep apnea without home CPAP use 10. Urethral stricture requiring straight catheterization 11. Obesity 12. Osteoarthritis 13. Remote history of pneumonia 14. 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 Postoperative acute blood loss anemia and thrombocytopenia, expected post cardiac surgery given hemodilution Plan: 1. Continue aspirin, statin, Plavix, low-dose beta brandy. Will increase metoprolol tartrate carefully as tolerated as patient did have documented hypotension and bradycardia due to metoprolol in the past. 2. Continue hydralazine for afterload reduction. 3. Wean O2 as tolerated. Encourage incentive spirometry use 10 times every hour while awake. Bronchodilators per pulmonology management. 4. Increase activity, ambulate as tolerated. PT/OT/cardiac rehab following. 5. Will monitor daily labs and chest x-rays. Electrolyte replacement per protocol. 6. GI/DVT prophylaxis. 7. Pain control with current medication regimen. Once his left pleural chest tube has been removed we will discontinue the [place]. 8. Insulin management per primary care service. Patient is not diabetic, preoperative hemoglobin A1c 5.4%, however he does need tight blood sugar control to promote sternal union and to prevent infection. 9. We will remove his left pleural chest tube. 10. Continue self catheterizations as the patient has completed this on his own for the last 10 years. 11. Continue to record strict and accurate intake and output, continue 1500 mL fluid restriction as his sodium is 132 today. Continue daily weights. 12. Transfer to [address] [place] [address] cardiac stepdown unit when bed available. 13. Left upper lobe lung wedge biopsy pending consultation from the [facility], initial pathology report is showing usual interstitial pneumonia. 14. More recommendations to follow based on patient's clinical course. Time with Patient: Greater than 30
[2020-11-30 16:29] LABS: Glucose,Whole Blood 108 mg/dL (75-99)
--- NOTE | 2020-11-30 17:37 | P.PN ---
Subjective Progress Note Date: 11/30/20 This patient with history of hypertension, hyperlipidemia, persistent atrial fibrillation recently evaluated her cardiac catheterization and was found to have triple-vessel disease. Patient had RICE graft to LAD, vein graft to the diagonal and the vein graft to the posterior lateral circumflex. Patient is postop day 3. Patient is on 4 L oxygen, saturating at 96%. Hemodynamically stable. Mediastinal chest tube was removed. Chest x-ray shows some diffuse increased lung markings. Patient has received a dose of Lasix.. He is since subclavian and dry. Vital signs are stable. Complaints of some improving Chest pain and tolerating fairly well overall. Patient seemed to be progressing fairly well. Continue current medical therapy Objective - Vital Signs Vital signs: Vital Signs Temp 98.2 F 11/30/20 09:00 Pulse 76 11/30/20 16:02 Resp 16 11/30/20 16:00 BP 128/62 11/30/20 11:09 Pulse Ox 91 L 11/30/20 15:00 Intake & Output 11/29/20 11/30/20 11/30/20 18:59 06:59 18:59 Intake Total 724 600 384 Output Total 355 2560 100 Balance 369 -1960 284 Weight 102.9 kg Intake: IV 124 Lactated Ringers 1,000 ml 100 @ 20 mls/hr IV .Q24H [facility] Rx#:[id number] Pressure Bags 24 Oral 600 600 384 Output: Chest Tube Drainage 160 160 100 Left Pleural/Mediastinal 160 160 100 Urine 195 2400 0 Other: Voiding Method Self-Catheterization Self-Catheterization Self-Catheterization ABP, PAP, CO, CI - Last Documented Arterial Blood Pressure 87/58 Pulmonary Artery Pressure 41/21 Cardiac Output 4.5 Cardiac Index 2.1 - Exam GENERAL EXAM: Patient is alert and oriented and doesn't appear to be in any acute distress HEENT: Normocephalic. Normal reaction of pupils, equal size, normal range of extraocular motion. No erythema or exudates in the throat. NECK: No masses, no nuchal rigidity. CHEST: Postsurgical LUNGS: Diminished air exchange HEART: S1 and S2 normal with no audible mumurs or gallops. Regular rhythm, femorals equal on both sides.. ABDOMEN: No hepatosplenomegaly, normal bowel sounds, no guarding or rigidity. SKIN: No rashes CENTRAL NERVOUS SYSTEM: No focal deficits. EXTREMITIES: No cyanosis, clubbing or edema. - Labs CBC & Chem 7: 11/30/20 03:46 11/30/20 03:46 Labs: Abnormal Lab Results - Last 24 Hours (Table) 11/29/20 11/30/20 11/30/20 Range/Units 20:32 03:46 03:46 RBC 3.58 L (4.30-5.90) m/uL Hgb 11.2 L (13.0-17.5) gm/dL Hct 32.8 L (39.0-53.0) % Sodium 132 L (137-145) mmol/L POC Glucose (mg/dL) 115 H (75-99) mg/dL Total Protein 5.1 L (6.3-8.2) g/dL Albumin 2.7 L (3.5-5.0) g/dL 11/30/20 11/30/20 11/30/20 Range/Units 06:51 11:42 16:27 RBC (4.30-5.90) m/uL Hgb (13.0-17.5) gm/dL Hct (39.0-53.0) % Sodium (137-145) mmol/L POC Glucose (mg/dL) 118 H 112 H 108 H (75-99) mg/dL Total Protein (6.3-8.2) g/dL Albumin (3.5-5.0) g/dL Assessment and Plan (1) Status post aorto-coronary artery bypass graft Current Visit: Yes Status: Acute Code(s): Z95.1 - PRESENCE OF AORTOCORONARY BYPASS GRAFT SNOMED Code(s): 750952691 (2) Atrial flutter Current Visit: No Status: Acute Code(s): I48.92 - UNSPECIFIED ATRIAL FLUTTER SNOMED Code(s): 3440398 (3) Essential hypertension Current Visit: Yes Status: Acute Code(s): I10 - ESSENTIAL (PRIMARY) HYPERTENSION SNOMED Code(s): 68670822 (4) Hyperlipidemia Current Visit: Yes Status: Acute Code(s): E78.5 - HYPERLIPIDEMIA, UNSPECIFIED SNOMED Code(s): 80984735 Plan: Continue current management. Incentive spirometry. Increase activity as tolerated. We will follow
[2020-11-30 20:41] LABS: Glucose,Whole Blood 131 mg/dL (75-99)
[2020-11-30] MEDS: ATORVASTATIN 80 MG TAB PO SCH (21:30)
[2020-11-30] MEDS: ASCORBIC ACID 500 MG TAB PO SCH (21:30)
[2020-11-30] MEDS: SENNOSIDES-DOCUSATE SODIUM 1 EACH TAB PO SCH (21:31)
[2020-11-30] MEDS: MULTIVITAMINS, THERA 1 EACH TAB PO SCH (21:31)
[2020-11-30] MEDS: CHOLECALCIFEROL 25 MCG (1000 IU) TABLET PO SCH (21:39)
[2020-11-30] MEDS: HYDROcodone/APAP 5-325MG 1 EACH TAB PO PRN (23:59)
[2020-12-01 04:38] LABS: HCT 32.7 % (39.0-53.0); HGB 11.2 gm/dL (13.0-17.5); MCH 31.1 pg (25.0-35.0); MCHC 34.3 g/dL (31.0-37.0); MCV 90.6 fL (80.0-100.0); Platelet Count 204 k/uL (150-450); RBC 3.61 m/uL (4.30-5.90); RDW 14.2 % (11.5-15.5); WBC 6.4 k/uL (3.8-10.6)
[2020-12-01 04:49] LABS: African American GFR (CKD) >90 (>60 ml/min/1.73 sqM); Anion Gap 4 mmol/L; Blood Urea Nitrogen 18 mg/dL (9-20); Calcium 8.7 mg/dL (8.4-10.2); Carbon Dioxide 25 mmol/L (22-30); Chloride 105 mmol/L (98-107); Glucose 105 mg/dL (74-99); Non-African American GFR(CKD) 83 (>60 ml/min/1.73 sqM); Potassium 4.2 mmol/L (3.5-5.1); Sodium 134 mmol/L (137-145)
[2020-12-01 06:54] LABS: Glucose,Whole Blood 120 mg/dL (75-99)
[2020-12-01] MEDS: INSULIN ASPART (NovoLOG) 100 UNIT/ML VIAL SQ SCH ×4 (06:54→20:36)
[2020-12-01] MEDS: KETOROLAC 15 MG/ML 1 ML VIAL IVP SCH ×4 (06:57→23:36)
[2020-12-01] MEDS: PANTOPRAZOLE 40 MG TABLET PO SCH (06:58)
[2020-12-01] MEDS: IPRATROPIUM-ALBUTEROL 3 ML NEB INHALATION SCH ×4 (07:08→19:57)
--- NOTE | 2020-12-01 08:41 | XR ---
EXAMINATION TYPE: XR chest 2V DATE OF EXAM: 12/01/2020 COMPARISON: 11/30/2020 HISTORY: 80-year-old male postoperative cardiac surgery TECHNIQUE: PA and lateral views FINDINGS: Median sternotomy wires are present. Left chest tube removed in the interval. Heart mildly enlarged. Coarse interstitial opacities persist but show slight improvement. Bibasilar opacities, regarding lef t remain. IMPRESSION: 1. Removal of left chest tube. No appreciable pneumothorax. 2. Diffuse coarse interstitial opacities/infiltrates/edema show slight improvement. 3. Bibasilar opacities, right greater left persists.
[2020-12-01] MEDS: ZINC SULFATE 220 MG CAP PO SCH (09:43)
[2020-12-01] MEDS: ASPIRIN 325 MG TAB PO SCH (09:43)
[2020-12-01] MEDS: CLOPIDOGREL 75 MG TAB PO SCH (09:44)
[2020-12-01] MEDS: METOPROLOL TARTRATE 25 MG TAB PO SCH ×2 (09:44→21:20)
[2020-12-01] MEDS: MAGNESIUM OXIDE 400 MG TAB PO SCH (09:44)
[2020-12-01] MEDS: hydrALAZINE HCL 25 MG TAB PO SCH ×3 (09:44→23:38)
[2020-12-01] MEDS: HEPARIN SODIUM,PORCINE/PF 5,000 UNIT/0.5 ML SYRINGE SQ SCH ×3 (09:45→23:37)
[2020-12-01] MEDS ORDERED: FUROSEMIDE 10 MG/ML 2 ML VIAL IV STA (10:13)
--- NOTE | 2020-12-01 10:18 | P.PN ---
Subjective Progress Note Date: 12/01/20 Principal diagnosis: Coronary artery disease with left main disease, atrial flutter present on entrance to the operating room, pneumopathy with suspected pulmonary fibrosis. 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 POD #4 off-pump coronary artery bypass grafting 3 with left internal mammary artery to the left anterior descending artery, reverse saphenous vein graft to the diagonal artery, reverse saphenous vein graft to posterior lateral distal circumflex, endovascular vein harvest from the left upper calf to the groin, epi-aortic ultrasonography, modified Dowling maze bilateral pulmonary vein ablation and ligation of the left atrial appendage with a 35 mm AtriCure clip, electrical cardioversion, biopsy of the left upper lobe of the lung. Postoperative acute blood loss anemia and thrombocytopenia, expected post cardiac surgery given hemodilution. No postoperative hypoxic respiratory failure (documented in the medical consultation)-patient normal post operative course with mechanical ventilation due to surgery, extubated within 4 hours of OR exit time. The patient was seen in follow-up today 12/01/2020 at his bedside in the intensive care unit. Currently sitting up to the chair, is awake, alert and oriented 3 and is in no acute distress. He is currently eating his breakfast and tolerating his diet well. Continues to deny any complaints of pain or shortness of breath at this time. Oxygen saturations are 95% on 2 L nasal cannula and he is achieving 2000 mL on his incentive spirometry with encouragement. Left pleural chest tube was removed without incident yesterday 11/30/2020. Bedside telemetry showing normal sinus rhythm heart rate 85 BPM. He remains hemodynamically stable and is currently on no inotropic or pressor support. He continues to ambulate in the intensive care unit hallway with standby assistance. He is complaining of some constipation today. Objective - Vital Signs Vital signs: Vital Signs Temp 97.5 F L 12/01/20 04:00 Pulse 78 12/01/20 07:20 Resp 10 L 12/01/20 06:00 BP 110/52 12/01/20 02:00 Pulse Ox 95 12/01/20 06:00 Intake & Output 11/30/20 12/01/20 12/01/20 18:59 06:59 18:59 Intake Total 744 840 Output Total 1000 1100 Balance -256 -260 Intake: Oral 744 360 Tube Feeding 480 Output: Chest Tube Drainage 100 Left Pleural/Mediastinal 100 Urine 900 1100 Other: Voiding Method Self-Catheterization Self-Catheterization # Voids 0 ABP, PAP, CO, CI - Last Documented Arterial Blood Pressure 87/58 Pulmonary Artery Pressure 41/21 Cardiac Output 4.5 Cardiac Index 2.1 - Exam CONSTITUTIONAL: Sitting up to the bedside chair in the intensive care unit, appears comfortable, cooperative, no apparent acute distress. HEENT: Neck is supple, no JVD, no lymphadenopathy. RESPIRATORY: Lungs sounds essentially clear throughout, diminished to his bilateral bases. Respirations are symmetrical and nonlabored. Currently on 2 L nasal cannula with oxygen saturations 95%. Able to achieve 2000 mL on his incentive spirometry. Strong cough. CARDIOVASCULAR: Regular rhythm and rate. S1 and S2 present, negative for S3, gallop or murmur. Sternum is stable. Palpable peripheral pulses bilaterally, trace edema to his bilateral lower extremities. No calf pain or tenderness noted. Heart hugger in place with patient demonstrating appropriate use. Knee- high SHRUTHI hose and sequential compression devices in place to his bilateral lower extremities. Bedside telemetry showing normal sinus rhythm heart rate 85 BPM. GASTROINTESTINAL: Abdomen soft, nontender, nondistended. Active bowel sounds present 4 quadrants. Tolerating diet. Passing flatus. No guarding or rigidity. GENITOURINARY: Self cathing, 1.1 L of clear yellow urine output in the last 8 hours. INTEGUMENTARY: Skin is warm and dry with no evidence of clubbing or cyanosis. Midline sternal incision clean dry and well approximated, covered with dry intact dressing. Left lower extremity EVH sites well approximated without redness or drainage. NEUROLOGIC: Cranial nerves II through XII intact. No focal deficits. MUSKULOSKELETAL: Able to move all extremities, strength equal bilaterally. PSYCHIATRIC: Alert and oriented to person place and time, appropriate affect, intact judgment and insight. - Allied health notes Allied health notes reviewed: nursing - Labs CBC & Chem 7: 12/01/20 04:15 12/01/20 04:15 Labs: Abnormal Lab Results - Last 24 Hours (Table) 11/30/20 11/30/20 11/30/20 Range/Units 11:42 16:27 20:40 RBC (4.30-5.90) m/uL Hgb (13.0-17.5) gm/dL Hct (39.0-53.0) % Sodium (137-145) mmol/L Glucose (74-99) mg/dL POC Glucose (mg/dL) 112 H 108 H 131 H (75-99) mg/dL 12/01/20 12/01/20 12/01/20 Range/Units 04:15 04:15 06:52 RBC 3.61 L (4.30-5.90) m/uL Hgb 11.2 L (13.0-17.5) gm/dL Hct 32.7 L (39.0-53.0) % Sodium 134 L (137-145) mmol/L Glucose 105 H (74-99) mg/dL POC Glucose (mg/dL) 120 H (75-99) mg/dL - Imaging and Cardiology Chest x-ray: report reviewed, image reviewed Assessment and Plan Assessment: 1. 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 Atrial flutter present on entrance to the operating room, status post electrical cardioversion, currently in normal sinus rhythm 3. 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 History of hypertension 5. Hyperlipidemia, treated, cholesterol 141, LDL 82 6. Paroxysmal atrial flutter 7. Paroxysmal atrial fibrillation on Eliquis for anticoagulation, modified Dowling maze, ligation of the left atrial appendage 8. Previous tobacco dependence, preoperative FEV1 80% of predicted 9. Obstructive sleep apnea without home CPAP use 10. Urethral stricture requiring straight catheterization 11. Obesity 12. Osteoarthritis 13. Remote history of pneumonia 14. 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 Postoperative acute blood loss anemia and thrombocytopenia, expected post cardiac surgery given hemodilution Plan: 1. Continue aspirin, statin, Plavix, low-dose beta brandy. Will increase metoprolol tartrate 25 mg by mouth twice a day and increase carefully as tolerated as patient did have documented hypotension and bradycardia due to metoprolol in the past. 2. Continue hydralazine for afterload reduction. 3. Wean O2 as tolerated. Encourage incentive spirometry use 10 times every hour while awake. Bronchodilators per pulmonology management. May need to be discharged home on home oxygen. 4. Increase activity, ambulate as tolerated. PT/OT/cardiac rehab following. 5. Will monitor daily labs and chest x-rays. Electrolyte replacement per protocol. 6. GI/DVT prophylaxis. 7. Pain control with current medication regimen. Spencer has been discontinued. 8. Insulin management per primary care service. Patient is not diabetic, preoperative hemoglobin A1c 5.4%, however he does need tight blood sugar control to promote sternal union and to prevent infection. 9. Continue self catheterizations as the patient has completed this on his own for the last 10 years. 10. Continue to record strict and accurate intake and output, continue 1500 mL fluid restriction as his sodium is 134 today. Continue daily weights. 11. Transfer to [address] [place] [address] cardiac stepdown unit when bed available. 12. 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 Lasix 20 mg IV 1 now. 14. Anticipate discharge home today with [facility] health care. 15. Dulcolax suppository 1 now. 16. More recommendations to follow based on patient's clinical course. Time with Patient: Greater than 30
[2020-12-01] MEDS ORDERED: NA PHOS,M-B/NA PHOS,DI-BA 133 ML ENEMA RECTAL ONE (10:22)
--- NOTE | 2020-12-01 11:26 | P.PN ---
Subjective Progress Note Date: 12/01/20 This is a 80-year-old gentleman status post CABG RICE-LAD, SVG-diagonal branch and posterior circumflex, modified MAZE, cardioversion and lung biopsy postop day #1 , extubated last night. Maintaining O2 sats in the 90s on 4 L nasal cannula. Incentive spirometer ranging from 1250 to 1500. Chest x-ray reporting small bilateral pleural effusions, mild interstitial edema, and possible underlying moderate to advanced pulmonary fibrosis in a patient who was a former smoker. Insulin drip converted over to sliding scale. Blood sugars controlled. Telemetry sinus rhythm. Complains of surgical site pain, denies chest pain, palpitations or shortness of breath. 11/29/2020 Ambulating in the hallway, tolerating exertion well. Maintaining O2 sats in the 90s on 4 L nasal cannula. CXR reporting mild cardiomegaly, persistent coarse bilateral interstitial infiltrates, improving patchy bibasilar opacities. Lung biopsy reporting consistent with interstitial pneumonitis, concerning for UIP, sent out to [facility] for further evaluation.Telemetry sinus rhythm. Good diet intake, denies nausea vomiting or diarrhea. Passing flatus, no bowel movement. Accu-Cheks controlled. Sodium 1:30. Afebrile, normal WBC. Renal function stable. 11/30/2020 continues requiring 4 L nasal cannula O2 to maintain O2 sats in the 90s. Chest X-ray reporting moderate cardiomegaly, diffuse increased lung markings, pulmonary fibrosis. Sodium 132. Blood sugars controlled. Renal function stable, afebrile, normal WBC. Preparing to ambulate this morning. 12/01/2020 oxygen decreased down to 2 L nasal cannula maintaining O2 sats in the 90s. Inspirometer up to 1999. Chest x-ray reporting slight improvement of diffuse coarse interstitial opacities, bibasilar opacities right greater than left. Telemetry sinus rhythm. Sodium increased to 134. Ambulating, tolerating exertion well. Diet intake this morning 50%, denies nausea or vomiting. Blood sugars controlled. Complaining of constipation. Objective - Vital Signs Vital signs: Vital Signs Temp 97.5 F L 12/01/20 04:00 Pulse 93 12/01/20 08:00 Resp 14 12/01/20 08:00 BP 154/69 12/01/20 08:00 Pulse Ox 91 L 12/01/20 08:00 Intake & Output 11/30/20 12/01/20 12/01/20 18:59 06:59 18:59 Intake Total 744 840 Output Total 1000 1100 700 Balance -256 260 -700 Intake: Oral 744 360 Tube Feeding 480 Output: Chest Tube Drainage 100 Left Pleural/Mediastinal 100 Urine 900 1100 700 Other: Voiding Method Self-Catheterization Self-Catheterization # Voids 0 ABP, PAP, CO, CI - Last Documented Arterial Blood Pressure 87/58 Pulmonary Artery Pressure 41/21 Cardiac Output 4.5 Cardiac Index 2.1 - Exam PHYSICAL EXAM: VITAL SIGNS: [As above] GENERAL: Alert and oriented 3 ,Standing up at bedside, no acute distress HEENT: Conjunctivae normal. eyes normal. NECK: No JVD. No thyroid enlargement. No LNs CARDIOVASCULAR: S1, S2 regular. No murmur RESPIRATION: Breath sounds diminished in the bases. ABDOMEN: Soft, nontender . No guarding. no masses palpable.positive Bowel sounds. LEGS: Trace edema, wearing bilateral knee-high SHRUTHI hose NERVOUS SYSTEM: Cranial N 2-12 grossly normal.No focal deficits. Strength and sensation grossly intact. Skin: Warm and dry, no rash - Labs CBC & Chem 7: 12/01/20 04:15 12/01/20 04:15 Labs: Abnormal Lab Results - Last 24 Hours (Table) 11/30/20 11/30/20 11/30/20 Range/Units 11:42 16:27 20:40 RBC (4.30-5.90) m/uL Hgb (13.0-17.5) gm/dL Hct (39.0-53.0) % Sodium (137-145) mmol/L Glucose (74-99) mg/dL POC Glucose (mg/dL) 112 H 108 H 131 H (75-99) mg/dL 12/01/20 12/01/20 12/01/20 Range/Units 04:15 04:15 06:52 RBC 3.61 L (4.30-5.90) m/uL Hgb 11.2 L (13.0-17.5) gm/dL Hct 32.7 L (39.0-53.0) % Sodium 134 L (137-145) mmol/L Glucose 105 H (74-99) mg/dL POC Glucose (mg/dL) 120 H (75-99) mg/dL Assessment and Plan Assessment: Status post CABG, multi-vessel CAD Possible pulmonary fibrosis, status post left upper lobe lung biopsy. Lung biopsy reporting consistent with interstitial pneumonitis, concerning for UIP, sent out to [facility] for further evaluation. Chronic Paroxysmal atrial fibrillation, currently sinus rhythm Acute blood loss anemia with thrombocytopenia, postop, expected. Obstructive sleep apnea Hypertension Hyperlipidemia History of smoking, quit 27 years ago History of Guillain-Quinteros syndrome Chronic Urethral stricture, self caths. Obesity, BMI 31.4 Plan: Continue on current medication regime ,monitoring and symptomatic treatment. Discharge planning in progress for today as per CTS. continue with aggressive pulmonary toileting with incentive spirometer reinforced. Follow-up with PCP in one week . The impression and plan of care has been dictated as directed. : I performed a history and examination of this patient, discussed the same with the dictator. I agree with the dictator's note ,documented as a scribe. Any additional findings or plans will be noted.
[2020-12-01 11:39] LABS: Glucose,Whole Blood 120 mg/dL (75-99)
--- NOTE | 2020-12-01 11:39 | P.PN ---
Subjective Progress Note Date: 12/01/20 Principal diagnosis: Status post off-pump CABG 3 postoperative day # 4 This is a 80-year-old male patient of Dr. Yuliya Ortiz, with past history of hypertension, hyperlipidemia, persistent atrial flutter/atrial fibrillation, obstructive sleep apnea intolerant to CPAP, morbid obesity, osteoarthritis, urethral stricture requiring straight catheterization, and remote history of PMR rate syndrome. Patient was recently evaluated for episodes of shortness of breath and intermittent chest pain. He underwent a stress test which was mildly abnormal. His cardiogram revealed preserved LV systolic function. Patient had a heart catheterization which showed 75% stenosis of the left main coronary artery, 80% stenosis to the left circumflex coronary artery, and 20% stenosis of the proximal LAD, and a 30% stenosis to his mid LAD, and 10-20% stenosis of his right coronary artery. Due to the findings of the cardiac catheterization recommendation was made for cardiothoracic surgery evaluation and coronary artery bypass grafting. On 11/27/2020 patient underwent three-vessel coronary artery bypass grafting, which was done off pump, and consisting of RICE to the LAD, SVG to the diagonal, SVG to the posterior lateral distal circumflex with endovascular vein harvest and appendectomy aortic ultrasonography. Patient also had modified Dowling-Maze bilateral pulmonary vein ablation and ligation of the left atrial appendage using a 35 mm AtriCure clip. Of note patient's preop FEV1 was 2.4 to or 80% predicted, with FVC of 3.21 or 76% of predicted, with FEV1 to FVC ratio of 105% consistent with mild restriction. Patient is seen in the postoperative period in the intensive care unit, she is sedated, and intubated on mechanical ventilator, initial vent settings were assist control with a rate of 12, tidal volume 600, FiO2 100% and PEEP of 8. Postoperative blood gases showed pO2 of 310, pCO2 of 50, and pH of 7.32. Subsequently his FiO2 was dropped down to 50%, and his rate was increased to 14. He is currently on lactated Ringer's at 50 ML per hour, Diprivan is at 20 mics per kilo per minute, nitroglycerin is a 5 mics per kilo per minute, and levo fed has just been paus ed. Patient received 250 mL of Cell Saver Intra-Op, no additional blood work has been transfused, she did receive 2.5 L and crystalloids intraoperatively, currently has blood pressures are mildly low, and his urine output is in the order of 25 ML per hour, patient is going to receive additional volume in the form of 5% albumin, his PA pressure is 52/22, his CVP is 15, cardiac output is 5.5, and index is 2.5. He has one mediastinal left pleural chest tubes that are connected together, with small amount of serosanguineous output, no evidence of air leak, postoperative chest x-ray has been reviewed going diffuse scattered increased lung markings possibly related to underlying pulmonary fibrosis. Consider case with cardiothoracic surgeon who informed us that the lung biopsy has been taken intraoperatively. Patient was reevaluated today on 11/28/2020, patient is doing well, he was extubat ed shortly after he arrived to the ICU last night. Patient is postoperative day #1. He underwent CABG with RICE to LAD, reverse saphenous vein graft to the diagonal and reverse saphenous vein graft to posterior lateral distal circumflex. Patient also had biopsy of the left upper lobe since his chest x- ray and clinical findings were consistent with possible underlying pulmonary fibrosis. Today the patient is sitting in a recliner in the intensive care unit, he was extubated at 16:29 PM. Tolerated the extubation well. Presently asymptomatic, denies any shortness of breath, patient is in sinus rhythm hemodynamically stable. And again he is on 4 L nasal cannula achieving 1250 ML with his incentive spirometer. Mediastinal and left sided pleural chest tube remained in place. On 11/29/2020 patient seen in follow-up in the intensive care unit, today is postoperative day #2, status post off-pump three-vessel coronary artery bypass grafting. Patient is doing very well, he is currently ambulating with the help of RN. Breathing comfortably, he is on 4 L of oxygen pulse ox is 94%, -7 s table, his been afebrile, hemodynamically has been stable. In sinus mechanism, his [place] catheter has been removed. On lactated Ringer's at a rate of 30 ML per hour, no other drips. His breathing is nonlabored, he is working on incentive spirometer, his chest x-ray today shows a mild cardiomegaly and coarse bilateral interstitial infiltrates, there is patchy bibasilar opacities with a slight improvement, today's labs have been reviewed, white blood cell, 6.6, hemoglobin is 10.8, sodium is 1:30, the rest of the electrolytes and renal profile were within normal limits. Patient still has a mediastinal and left pleural chest tubes in place, with watery servicing this output, and there has been a total of 860 cc of output from the 2 chest tubes in the last 24 hours. The catheter is in place, patient is making 40-45 ML per hour. No altered mentation, his pain is fairly well controlled. No nausea vomiting or diarrhea, patient is tolerating oral intake. On 11/30/2020 patient seen in follow-up in intensive care unit, today's postoperative day #3, status post off-pump three-vessel coronary artery bypass grafting. Patient is doing very well, breathing comfortably, currently on 4 L of oxygen pulse ox of 96%, hemodynamically stable. He is not on any IV fluids right now. His been working on incentive spirometer. His left pleural chest tube remains in place, his mediastinal chest tube has been removed, today's chest x-ray has been reviewed showing diffuse increased lung markings. Today's labs have been reviewed, his white count is 6.3, hemoglobin is 11.2, sodium is 132, the rest of electrolytes and renal profile were within normal limits. Yesterday she received a dose of IV Lasix, and patient has produced 2.9 L and urine output over the last 24 hours, and he is in -1.5 L net fluid balance over the last 24 hours. Overall breathing comfortably, denies any specific c omplaints. His pain is fairly well-controlled. His surgical incisions are clean dry and intact, sternum stable. He has been tolerating ambulation. Reevaluated today on 12/01/2020, patient is now postoperative day #4. Patient is doing well, relatively asymptomatic, he is being considered for possible discharge home today. Chest x-ray is basically about the same, continues to show interstitial lung disease, underlying interstitial edema is not entirely ruled out but felt to be less likely. CBC today is relatively normal *Normal renal profile is normal Objective - Vital Signs Vital signs: Vital Signs Temp 97.5 F L 12/01/20 04:00 Pulse 76 12/01/20 11:32 Resp 14 12/01/20 08:00 BP 154/69 12/01/20 08:00 Pulse Ox 90 L 12/01/20 11:18 Intake & Output 11/30/20 12/01/20 12/01/20 18:59 06:59 18:59 Intake Total 744 840 Output Total 1000 1100 700 Balance -256 260 -700 Intake: Oral 744 360 Tube Feeding 480 Output: Chest Tube Drainage 100 Left Pleural/Mediastinal 100 Urine 900 1100 700 Other: Voiding Method Self-Catheterization Self-Catheterization # Voids 0 # Bowel Movements 1 ABP, PAP, CO, CI - Last Documented Arterial Blood Pressure 87/58 Pulmonary Artery Pressure 41/21 Cardiac Output 4.5 Cardiac Index 2.1 - Exam Physical Exam: Revealed 80-year-old white male in no distress, on 2 L nasal cannula with O2 sat showed 95%. Head: Atraumatic, normocephalic. HEENT:[Neck is supple.] [No neck masses.] [No thyromegaly.] [No JVD.] Chest: [Symmetrical chest expansion, crackles at the bases, no rhonchi no wheezes. Cardiac Exam: [Normal S1 and S2, no S3 gallop, no murmur.] Abdomen: [Soft, nontender, no megaly, no rebound, no guarding, normal bowel sounds.] Extremities: [No clubbing, no edema, no cyanosis.] Neurological Exam: [No focal neurologic deficit.] Alert and oriented 3. Psychiatric: Normal mood affect and normal mental status examination - Labs CBC & Chem 7: 12/01/20 04:15 12/01/20 04:15 Labs: Abnormal Lab Results - Last 24 Hours (Table) 11/30/20 11/30/20 11/30/20 Range/Units 11:42 16:27 20:40 RBC (4.30-5.90) m/uL Hgb (13.0-17.5) gm/dL Hct (39.0-53.0) % Sodium (137-145) mmol/L Glucose (74-99) mg/dL POC Glucose (mg/dL) 112 H 108 H 131 H (75-99) mg/dL 12/01/20 12/01/20 12/01/20 Range/Units 04:15 04:15 06:52 RBC 3.61 L (4.30-5.90) m/uL Hgb 11.2 L (13.0-17.5) gm/dL Hct 32.7 L (39.0-53.0) % Sodium 134 L (137-145) mmol/L Glucose 105 H (74-99) mg/dL POC Glucose (mg/dL) 120 H (75-99) mg/dL Assessment and Plan Assessment: Impression: Status post CABG, postoperative day #4. And status post left upper lobe lung biopsy. idiopathic pulmonary fibrosis, biopsy proven Benign essential hypertension Chronic atrial fibrillation Obstructive sleep apnea syndrome Remote smoking history quit 25 years ago. Remote history of Guillain-Quinteros. Recommendation: Continue aspirin and Plavix and statin as well as beta blockers. Titrate oxygen and wean accordingly maintaining O2 saturation above 90% may qualify for home O2 and this will be tested today before the patient is discharged home. The indication would be IPF. Continue to ambulate. Agree with Lasix given today. Agree with discharge planning for today. Time with Patient: Less than 30
--- NOTE | 2020-12-01 11:51 | P.PN ---
Subjective HISTORY OF PRESENTING ILLNESS This is a pleasant 80-year-old male past medical history significant for paroxysmal atrial fibrillation on eliquis, hypertension, dyslipidemia, sleep apnea, suspected pulmonary fibrosis and arthritis. He follows in the office with Dr. Schwartz. We have been asked to see in consultation for cardiac care post op CABG. He underwent RICE-LAD, SVG-diagonal branch and posterior circumflex, modified MAZE, cardioversion and lung biopsy yesterday with Dr. Clarke. He is seen and examined sitting up in the recliner. He is breathing stable with some mild surgical site pain with no anginal like symptoms. He denies dizziness or palpitations. He has right IJ swan/cordis, right radial art line, mediastinal chest tube and left pleural chest tube in place. Chest xray from this morning revealed developing small b/l pleural effusions and mild interstitial edema with underlying moderate to advanced chronic parenchymal fibrotic changes. Laboratory data reviewed, WBC 7.1, hgb 11.5, plt 147, sodium 133, potassium 4.2, creatinine 0.67 and magnesium 2.1. Currently maintained on aspirin 325 mg daily, atorvastatin 80 mg daily, plavix 75 mg daily, hydralazine 25 mg TID and lopressor 12.5 mg BID. Pre-op echo revealed preserved LV systolic function with EF 55-60%. 12/01/2020 Pt seen and examined walking around the room in no acute distress. He denies chest pain, dizziness or palpitations. He admits to feeling very mildly short of breath with activity. 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 Repeat chest xray today reveals bibasilar opacities right greater than left and course interstitial opacities with slight improvement. Blood pressure 154/69 heart rate 76 afebrile maintaining oxygen saturation on nasal cannula. Laboratory data reviewed, WBC 6.4, hemoglobin 11.2, platelets 134, sodium 4.2 and creatinine 0.86. PHYSICAL EXAMINATION CONSTITUTIONAL: No apparent distress. HEENT: Head is normocephalic. Pupils are equal, round. Sclerae anicteric. Mucous membranes of the mouth are moist. No JVD. No carotid bruit. CHEST EXAMINATION: Bibasilar crackles, no wheezes or rhonchi. No chest wall tenderness is noted on palpation or with deep breathing. Heart hugger in place. Sternal dressing in place. HEART EXAMINATION: Regular rate and rhythm. S1, S2 heard. No murmurs, gallops or rub. EXTREMITIES: 2+ peripheral pulses, no lower extremity edema and no calf tenderne ss. ASSESSMENT Coronary artery disease s/p bypass grafting Paroxysmal atrial fibrillation, currently maintaining SR Hypertension Dyslipidemia Sleep apnea PLAN Continue current medical regimen. Surgical management per CT surgery team. Encourage incentive spirometer use around the clock while awake. Increase activity and ambulation as tolerated. Further recommendations to follow based on clinical course. Nurse Practitioner note has been reviewed, I agree with a documented findings and plan of care. Patient was seen and examined. Objective - Vital Signs Vital signs: Vital Signs Temp 97.5 F L 12/01/20 04:00 Pulse 76 12/01/20 11:32 Resp 14 12/01/20 08:00 BP 154/69 12/01/20 08:00 Pulse Ox 90 L 12/01/20 11:18 Intake & Output 11/30/20 12/01/20 12/01/20 18:59 06:59 18:59 Intake Total 744 840 Output Total 1000 1100 700 Balance -256 -260 -700 Intake: Oral 744 360 Tube Feeding 480 Output: Chest Tube Drainage 100 Left Pleural/Mediastinal 100 Urine 900 1100 700 Other: Voiding Method Self-Catheterization Self-Catheterization # Voids 0 # Bowel Movements 1 ABP, PAP, CO, CI - Last Documented Arterial Blood Pressure 87/58 Pulmonary Artery Pressure 41/21 Cardiac Output 4.5 Cardiac Index 2.1 - Labs CBC & Chem 7: 12/01/20 04:15 12/01/20 04:15 Labs: Abnormal Lab Results - Last 24 Hours (Table) 11/30/20 11/30/20 12/01/20 Range/Units 16:27 20:40 04:15 RBC 3.61 L (4.30-5.90) m/uL Hgb 11.2 L (13.0-17.5) gm/dL Hct 32.7 L (39.0-53.0) % Sodium (137-145) mmol/L Glucose (74-99) mg/dL POC Glucose (mg/dL) 108 H 131 H (75-99) mg/dL 12/01/20 12/01/20 12/01/20 Range/Units 04:15 06:52 11:37 RBC (4.30-5.90) m/uL Hgb (13.0-17.5) gm/dL Hct (39.0-53.0) % Sodium 134 L (137-145) mmol/L Glucose 105 H (74-99) mg/dL POC Glucose (mg/dL) 120 H 120 H (75-99) mg/dL
[2020-12-01 16:38] LABS: Glucose,Whole Blood 102 mg/dL (75-99)
[2020-12-01 20:34] LABS: Glucose,Whole Blood 116 mg/dL (75-99)
[2020-12-01] MEDS: ASCORBIC ACID 500 MG TAB PO SCH (21:19)
[2020-12-01] MEDS: CHOLECALCIFEROL 25 MCG (1000 IU) TABLET PO SCH (21:19)
[2020-12-01] MEDS: ATORVASTATIN 80 MG TAB PO SCH (21:20)
[2020-12-01] MEDS: SENNOSIDES-DOCUSATE SODIUM 1 EACH TAB PO SCH (21:20)
[2020-12-01] MEDS: MULTIVITAMINS, THERA 1 EACH TAB PO SCH (21:20)
[2020-12-02 04:08] VITALS: RESP 14
[2020-12-02 04:41] LABS: HCT 35.1 % (39.0-53.0); MCH 31.5 pg (25.0-35.0); MCHC 34.1 g/dL (31.0-37.0); MCV 92.2 fL (80.0-100.0); Mean Platelet Volume 8.1; Platelet Count 249 k/uL (150-450); RBC 3.81 m/uL (4.30-5.90); RDW 14.3 % (11.5-15.5); WBC 6.6 k/uL (3.8-10.6)
[2020-12-02 05:03] LABS: Calcium 9.4 mg/dL (8.4-10.2); Potassium 4.3 mmol/L (3.5-5.1)
[2020-12-02] MEDS: INSULIN ASPART (NovoLOG) 100 UNIT/ML VIAL SQ SCH (05:53)
[2020-12-02] MEDS: PANTOPRAZOLE 40 MG TABLET PO SCH (06:05)
[2020-12-02] MEDS: KETOROLAC 15 MG/ML 1 ML VIAL IVP SCH (06:05)
--- NOTE | 2020-12-02 07:45 | P.PN ---
Subjective Progress Note Date: 12/02/20 Principal diagnosis: Coronary artery disease with left main disease, atrial flutter present on entrance to the operating room, pneumopathy with confirmed idiopathic pulmonary fibrosis. 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 POD #5 off-pump coronary artery bypass grafting 3 with left internal mammary artery to the left anterior descending artery, reverse saphenous vein graft to the diagonal artery, reverse saphenous vein graft to posterior lateral distal circumflex, endovascular vein harvest from the left upper calf to the groin, epi-aortic ultrasonography, modified Dowling maze bilateral pulmonary vein ablation and ligation of the left atrial appendage with a 35 mm AtriCure clip, electrical cardioversion, biopsy of the left upper lobe of the lung Postoperative acute blood loss anemia and thrombocytopenia, expected post cardiac surgery given hemodilution The patient is currently sitting up in a recliner in the intensive care unit in no acute distress. States pain is controlled on current medication regimen, denies shortness of breath. States he wasn't able to get much sleep last night, looking forward to going home today to sleep in his own bed. Remains in sinus rhythm with first-degree AV block, hemodynamically stable. Remains on 2 L nasal cannula which he will go home on due to IPF, actively attempting incentive spirometry use and achieving 2500 mL. Patient has ambulated in the hallway without difficulty, has showered. No new concerns. Objective - Vital Signs Vital signs: Vital Signs Temp 98 F 12/02/20 04:00 Pulse 93 12/02/20 04:00 Resp 14 12/02/20 04:08 BP 153/72 12/02/20 04:00 Pulse Ox 97 12/02/20 04:00 Intake & Output 12/01/20 12/02/20 12/02/20 18:59 06:59 18:59 Intake Total 222 Output Total 1500 300 Balance -1500 -78 Weight 101.423 kg Intake: Oral 222 Output: Urine 1500 300 Other: Voiding Method Self-Catheterization Self-Catheterization # Voids 0 0 # Bowel Movements 1 ABP, PAP, CO, CI - Last Documented Arterial Blood Pressure 87/58 Pulmonary Artery Pressure 41/21 Cardiac Output 4.5 Cardiac Index 2.1 - Exam CONSTITUTIONAL: Appears comfortable, cooperative, no acute distress RESPIRATORY: Lungs sounds diminished bilaterally. Respirations even, nonlabored. Currently on 2 L nasal cannula with oxygen saturation 97%. Able to achieve 2500 mL on incentive spirometry. Strong productive cough. CARDIOVASCULAR: S1, S2 present. Regular rate and rhythm, sinus rhythm with first-degree AV block on telemetry. Sternum stable. Palpable peripheral pulses bilaterally. Trace bilateral lower extremity edema present. No calf pain or tenderness noted. Heart hugger in place with patient demonstrating appropriate use. Antiembolism stockings, SCDs present. GASTROINTESTINAL: Abdomen soft, nontender, nondistended. Active bowel sounds present 4 quadrants. Tolerating diet. Positive bowel movement GENITOURINARY: Continues to straight cath as per his usual home regimen INTEGUMENTARY: Skin is warm and dry with evidence of good perfusion. Anterior chest incision well approximated. Lower extremity EVH site well approximated without redness or drainage. NEUROLOGIC: Cranial nerves II through XII intact MUSKULOSKELETAL: Able to move all extremities, strength equal bilaterally, ambulatory without difficulty PSYCHIATRIC: Alert and oriented to person place and time, appropriate affect, intact judgment and insight - Allied health notes Allied health notes reviewed: nursing - Labs CBC & Chem 7: 12/02/20 04:23 12/02/20 04:23 Labs: Abnormal Lab Results - Last 24 Hours (Table) 12/01/20 12/01/20 12/01/20 Range/Units 11:37 16:38 20:33 RBC (4.30-5.90) m/uL Hgb (13.0-17.5) gm/dL Hct (39.0-53.0) % Sodium (137-145) mmol/L Glucose (74-99) mg/dL POC Glucose (mg/dL) 120 H 102 H 116 H (75-99) mg/dL 12/02/20 12/02/20 Range/Units 04:23 04:23 RBC 3.81 L (4.30-5.90) m/uL Hgb 12.0 L (13.0-17.5) gm/dL Hct 35.1 L (39.0-53.0) % Sodium 135 L (137-145) mmol/L Glucose 104 H (74-99) mg/dL POC Glucose (mg/dL) (75-99) mg/dL - Imaging and Cardiology Chest x-ray: image reviewed Assessment and Plan Assessment: 1. 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 Atrial flutter present on entrance to the operating room, status post electrical cardioversion 3. Pneumopathy with confirmed idiopathic pulmonary fibrosis, status post biopsy of the left upper lobe of the lung 4. History of hypertension 5. Hyperlipidemia, treated, cholesterol 141, LDL 82 6. Paroxysmal atrial flutter 7. Paroxysmal atrial fibrillation on Eliquis for anticoagulation, modified Dowling maze, ligation of the left atrial appendage 8. Previous tobacco dependence, preoperative FEV1 80% of predicted 9. Obstructive sleep apnea without home CPAP use 10. Urethral stricture requiring straight catheterization 11. Obesity 12. Osteoarthritis 13. Remote history of pneumonia 14. 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 Postoperative acute blood loss anemia and thrombocytopenia, expected post cardiac surgery given hemodilution Plan: 1. Continue aspirin, statin, low-dose beta brandy. Will restart Eliquis 2. Continue hydralazine for afterload reduction 3. Wean O2 as tolerated, patient will be discharged on home oxygen secondary to IPF. Encourage incentive spirometry use 10 times every hour while awake. Bronchodilators per pulmonology 4. Increase activity, ambulate as tolerated. PT/OT/cardiac rehab following 5. Will monitor daily labs and x-rays. Electrolyte replacement per protocol. 6. GI/DVT prophylaxis 7. Pain control with current medication regimen 8. Insulin management per primary care service. Patient is not diabetic, preoperative hemoglobin A1c 5.4%, however he does need tight blood sugar control to promote sternal union and to prevent infection 9. Strict intake and output. Daily weights 10. Will discharge to home today with home care to follow Time with Patient: Greater than 30
[2020-12-02] MEDS: IPRATROPIUM-ALBUTEROL 3 ML NEB INHALATION SCH (08:02)
[2020-12-02 08:11] VITALS: TEMP 98.3
[2020-12-02 08:15] VITALS: BP 133/56
[2020-12-02 08:16] VITALS: PULSE 82
[2020-12-02] MEDS: METOPROLOL TARTRATE 25 MG TAB PO SCH (08:28)
[2020-12-02] MEDS: MAGNESIUM OXIDE 400 MG TAB PO SCH (08:28)
[2020-12-02] MEDS: hydrALAZINE HCL 25 MG TAB PO SCH (08:28)
[2020-12-02] MEDS: ZINC SULFATE 220 MG CAP PO SCH (08:28)
[2020-12-02] MEDS: ASPIRIN 325 MG TAB PO SCH (08:28)
[2020-12-02] MEDS: CLOPIDOGREL 75 MG TAB PO SCH (08:28)
[2020-12-02] MEDS: HEPARIN SODIUM,PORCINE/PF 5,000 UNIT/0.5 ML SYRINGE SQ SCH (08:32)
--- NOTE | 2020-12-02 10:07 | P.DS ---
Providers Date of admission: 11/27/20 05:46 Expected date of discharge: 12/02/20 Attending physician: Constantine Clarke Consults: 11/27/20 12:53 Consult Physician Routine Consulting Provider: Nathanael Valencia Consult Reason/Comments: [place] [employer] Consult: post cardiac surgery Do you want consulting provider notified?: Yes Consult Physician Routine Consulting Provider: Abdoulaye Ortiz Consult Reason/Comments: med mgmt Do you want consulting provider notified?: Yes 11/28/20 06:39 Consult Physician Routine Consulting Provider: Nikhil Craig Consult Reason/Comments: post cardiac surgery Do you want consulting provider notified?: Yes Primary care physician: Yuliya Ortiz [place] Hospital Course: FINAL DIAGNOSIS: 1. 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 Atrial flutter present on entrance to the operating room with history of paroxysmal atrial flutter and atrial fibrillation on Eliquis for anticoagulation at home 3. Pneumopathy consistent with chronic idiopathic pulmonary fibrosis 4. History of hypertension 5. Hyperlipidemia, treated, cholesterol 141, LDL 82 6. Previous tobacco dependence, preoperative FEV1 80% of predicted 7. Obstructive sleep apnea without home CPAP use 8. Urethral stricture requiring straight catheterization 9. Obesity 10. Osteoarthritis 11. Remote history of pneumonia 12. Remote history of Guillain-[place] after flu vaccine, remains unvaccinated against Covid 13. Postoperative acute blood loss anemia and thrombocytopenia, expected PRINCIPAL PROCEDURE: 1. Off-pump coronary artery bypass grafting 3 with left internal mammary artery to the left anterior descending coronary artery, reverse greater saphenous vein graft to the diagonal coronary artery, reverse greater saphenous vein graft to the posterior lateral distal circumflex. 2. Epi-aortic ultrasonography. 3. Modified Dowling maze bilateral pulmonary vein ablation. 4. Ligation of left atrial appendage with a 35 mm Atricure clip. 5. Electrical cardioversion. 6. Biopsy of the left upper lobe of the lung. HISTORY OF PRESENT ILLNESS: This is a 80-year-old gentleman who follows on an outpatient basis with Dr. Yuliya Ortiz for primary care as well as Dr. Schwartz from cardiology for cardiology. Recently, the patient had been experiencing shortness of breath with intermittent episodes of chest pain. Due to these episodes of shortness of breath and chest pain he underwent a stress test which was mildly abnormal and also had an abnormal calcium scoring with preserved LV systolic function. Subsequently, he was recommended to undergo a heart catheterization which demonstrated 75% stenosis to his left main coronary artery, 80% stenosis to his circumflex coronary artery, 20% stenosis to his proximal left anterior descending coronary artery, 30% stenosis to his mid left anterior descending coronary artery and 10-20% stenosis to his right coronary artery. A transthoracic 2-D echocardiogram was also completed which showed an overall normal left ventricular systolic function with ejection fraction 55-60%, trace mitral valve regurgitation and mild tricuspid valve regurgitation. Consultation was placed to Dr. Constantine Clarke from cardiothoracic surgery. Recommendation was made for elective coronary artery bypass sugery. The usual perioperative course of cardiac surgery was reviewed, risks and benefits were discussed, all questions were answered, and the patient consented to surgery. The patient was scheduled for surgery at the earliest possible date. HOSPITAL COURSE: The patient was admitted on 11/27/2020, brought to the preoperative area, prepared in the usual fashion and subsequently taken to the operating room where Dr. Constantine Clarke performed an off-pump coronary artery bypass grafting 3. Upon completion of the surgery the patient was transferred to the cardiovascular intensive care unit where he was recovered and monitored hemodynamically. He was extubated, all lines, tubes and supportive drips were discontinued when appropriate and transfer orders were placed to the cardiac stepdown unit, although due to lack of bed availability he remained in the intensive care unit until discharge. His oxygen was titrated down although he still was requiring 2 L nasal cannula. He continued to work with physical and occupational therapy, he was tolerating an oral diet, his pain was well controlled and he was ready to be discharged home with [facility] care on postoperative day #5. He received verbal and written instructions regarding his medications, activity restrictions, signs and symptoms requiring physician notification and his follow-up appointments. Patient Condition at Discharge: Stable Plan - Discharge Summary Discharge Rx Participant: No New Discharge Prescriptions: New hydrALAZINE HCL [Apresoline] 25 mg PO Q8HR #90 tab Sennosides-Docusate Sodium [Senokot-S] 2 each PO HS PRN tab PRN Reason: Constipation Acetaminophen Tab [Tylenol] 650 mg PO Q6HR PRN tab PRN Reason: Fever And/ Or Pain Metoprolol Tartrate [Lopressor] 25 mg PO BID #60 tab Zinc Sulfate [Orazinc] 220 mg PO DAILY cap Pantoprazole [Protonix] 40 mg PO AC-BRKFST #30 tablet.dr Continue Magnesium Gluconate [Magonate] 500 mg PO DAILY L.acidoph,Paracasei, B.lactis [Probiotic] 1 cap PO DAILY Ubidecarenone [Co Q-10] 100 mg PO HS Nitrofurantoin Monohyd/M-Cryst [Macrobid] 100 mg PO DAILY Multivitamins, Thera [Multivitamin (formulary)] 1 tab PO HS Cholecalciferol [Vitamin D3 (25 Mcg = 1000 Iu)] 5,000 unit PO HS Ascorbic Acid [Vitamin C] 500 mg PO HS Aspirin [Adult Low Dose Aspirin EC] 81 mg PO HS Rosuvastatin Calcium [Crestor] 40 mg PO HS Apixaban [Eliquis] 5 mg PO BID #60 tab [place]-3/Dha/Epa/Fish Oil [Fish Oil 500 mg Softgel] 1 each PO HS Ivermectin 3 mg PO Q7D resveratroL [Resveratrol] 100 mg PO HS Quercetin 500 mg PO DAILY Discontinued Potassium Chloride [Klor-Con 10] 10 meq PO MOWEFR PRN PRN Reason: LEG CRAMPS Nitroglycerin Sl Tabs [Nitrostat] 0.4 mg SUBLINGUAL Q5M PRN PRN Reason: Chest Pain Candesartan Cilexetil [Atacand] 16 mg PO DAILY Discharge Medication List Ascorbic Acid [Vitamin C] 500 mg PO HS 01/07/20 [History] Aspirin [Adult Low Dose Aspirin EC] 81 mg PO HS 01/07/20 [History] Cholecalciferol [Vitamin D3 (25 Mcg = 1000 Iu)] 5,000 unit PO HS 01/07/20 [History] L.acidoph,Paracasei, B.lactis [Probiotic] 1 cap PO DAILY 01/07/20 [History] Magnesium Gluconate [Magonate] 500 mg PO DAILY 01/07/20 [History] Multivitamins, Thera [Multivitamin (formulary)] 1 tab PO HS 01/07/20 [History] Nitrofurantoin Monohyd/M-Cryst [Macrobid] 100 mg PO DAILY 01/07/20 [History] Rosuvastatin Calcium [Crestor] 40 mg PO HS 01/07/20 [History] Ubidecarenone [Co Q-10] 100 mg PO HS 01/07/20 [History] Apixaban [Eliquis] 5 mg PO BID #60 tab 01/09/20 [Rx] Ivermectin 3 mg PO Q7D 10/31/20 [History] [place]-3/Dha/Epa/Fish Oil [Fish Oil 500 mg Softgel] 1 each PO HS 10/31/20 [ History] Quercetin 500 mg PO DAILY 10/31/20 [History] resveratroL [Resveratrol] 100 mg PO HS 10/31/20 [History] Acetaminophen Tab [Tylenol] 650 mg PO Q6HR PRN tab 12/02/20 [Rx] Metoprolol Tartrate [Lopressor] 25 mg PO BID #60 tab 12/02/20 [Rx] Pantoprazole [Protonix] 40 mg PO AC-BRKFST #30 tablet. 12/02/20 [Rx] Sennosides-Docusate Sodium [Senokot-S] 2 each PO HS PRN tab 12/02/20 [Rx] Zinc Sulfate [Orazinc] 220 mg PO DAILY cap 12/02/20 [Rx] hydrALAZINE HCL [Apresoline] 25 mg PO Q8HR #90 tab 12/02/20 [Rx] Follow up Appointment(s)/Referral(s): Nathanael Valencia MD [STAFF PHYSICIAN] - 12/13/20 1:00 pm Iván Schwartz MD [STAFF PHYSICIAN] - 2 Weeks ('s office will call with a follow-up appointment.) [facility],Cardiac [NON-STAFF] - 4 Weeks (You will receive a phone call approximately 4-6 weeks after surgery for evaluation for cardiac rehab) [facility],Equipment [NON-STAFF] - As Needed (Supplier of Home Oxygen) Yuliya Ortiz DO [Primary Care Provider] - 12/15/20 2:30 pm Constantine Clarke MD [STAFF PHYSICIAN] - 4 Weeks (Ольга from Dr. Clarke's office will call with a follow-up appointment.) Carlos Arcos NPC [Nurse Practitioner] - 12/07/20 11:00 am (Please follow-up add address [address] [place] [address] 1, [facility], [address], office number [phone]) [facility], [NON-STAFF] - [address],[place] [NON-STAFF] - As Needed (Contact regarding a shower chair to susie. ) [facility],Clinic [REFERRING] - 1 Week Ambulatory/Diagnostic Orders: Complete Blood Count w/diff [LAB.AMB] Time Frame: 3 Days, Location: None Se lected Comprehensive Metabolic Panel [LAB.AMB] Time Frame: 3 Days, Location: None Selected Activity/Diet/Wound Care/Special Instructions: DISCHARGE INSTRUCTIONS: 1. No driving for 4 weeks, or until physician gives their ok. 2. The patient should sleep in their own bed, no medical bed needed. 3. Stairs are not an issue. If the bedroom is upstairs, it is advised that the patient go up at night and down in the morning for the first week. Go slowly, using handrail and take 1 step at a time. 4. SHRUTHI hose are to be worn for 30 days or until physician discontinues. 5. Heart hugger is to be worn 100% of the time until physician discontinues.(except when showering) 6. No lifting, pushing, or pulling more than 10 pounds for 12 weeks. The physician will advise of any restriction changes. 7. The patient is expected to continue the prescribed walking program. 8. Continue pain control per as needed orders. 9. Continue with incentive spirometry and splinting/heart hugger until otherwise directed by the physician. 10. Must shower daily using liquid antibacterial soap and a separate white washcloth for each individual incision. 11. Routine sternal incision care. No powders, lotions, ointments on incisions. No dressings are necessary on incisions unless they are draining. Dermabond tape is to remain on sternal incision until surgeon follow-up. 12. Please call surgeon/CNC LATHE MACHINIST for temp greater than 101 F or purulent drainage from incisions. 13. All prescriptions given by surgeon for 30 days. Refills need to be filled through central office maintainer/primary care physician. 14. A Red armband has been placed on the patient. It should be worn for 30 days post surgery and will be removed by the cardiac surgeons. If an ER visit is necessary, please make sure the number on the Red armband is called. 15. You have been referred to and are expected to begin Cardiac Rehab in approximately 4-6 weeks. HOME HEALTH SERVICES TO PROVIDE: RN SKILLED HOME CARE SERVICES FOR POST-OP SURGICAL PATIENTS WITH THE FOLLOWING: Coronary Artery Bypass Surgery (CABG), Mitral Valve Replacement/Repair ( MVR), Aortic Valve Replacement/Repair (AVR) RN TO CONTINUE EDUCATION FROM ``ROAD TO A HEALTH HEART PATIENT EDUCATION MANUAL (GIVEN TO PATIENT IN THE HOSPITAL) MEDICATION RECONCILIATION WITH EDUCATION NEEDED ON FIRST HOME VISIT EMPHASIZE IMPORTANCE OF WEARING BREAST SUPPORT/HEART HUGGER ENCOURAGE USE OF INCENTIVE SPIROMETER 10 X EVERY HOUR WHILE AWAKE ENCOURAGE UTILIZATION OF LOWER EXTREMITY COMPRESSION STOCKINGS/SHRUTHI HOSE and ELEVATE LEGS ABOVE LEVEL OF HEART WHILE AT REST. ENCOURAGE AMBULATION 3-5x/day INCREASING TOLERATES, WHILE AVOIDING EXTREMES IN TEMPERATURE FREQUENCY: RN TO OPEN THE PATIENT WITHIN 24 HOURS OF DISCHARGE FROM THE HOSPITAL WITH TELEHEALTH INSTALLED AT [facility] [place], RN TO VISIT 2-3 X A WEEK FOR 4 WEEKS ESTABLISHED BY PATIENT NEEDS. LABORATORY: CBC, CMP TO BE DRAWN ON THE THIRD DAY HOME, (RAN STAT) FAX RESULTS TO [phone]. TELEHEALTH PARAMETERS: WEIGHT: NOTIFY MD OF WEIGHT GAIN OF 2 LBS IN 24 HOURS OR 5 LBS IN ONE WEEK HR: NOTIFY MD OF HR <55 BPM OR HR>100 BPM BP: NOTIFY MD IF BP <90/55 OR BP>140/100 O2 SAT: NOTIFY MD IF PO2<93% ON ROOM AIR SEND TELEHEALTH REPORT TO TRUCK LOADER AND CARDIOVASCULAR SURGEON THE FIRST WEEK OF CARE AND THEN BI-WEEKLY. PLEASE ADDITIONALLY COMMUNICATE ANY ABNORMALS AND NEW FINDINGS TO THE SURGEONS OFFICE. For any questions or concerns please call grinding machine operator portable Leonarda @ or Zev @ Discharge Disposition: HOME WITH HOME HEALTH SERVICES
--- NOTE | 2020-12-02 12:29 | XR ---
EXAMINATION TYPE: XR chest 1V portable DATE OF EXAM: 12/02/2020 COMPARISON: 12/01/2020 INDICATION: Postop CABG TECHNIQUE: Single frontal view of the chest is obtained. FINDINGS: The heart size is normal. The pulmonary vasculature is normal. There is increased peripheral lung markings. Increased lung markings at bilateral lung bases. Finding s are nonspecific. Atelectasis could be considered. Pneumonia is within the differential. Some [place] pulmonary fibrosis may be present. IMPRESSION: 1. Mild diffuse increased lung markings are nonspecific. Continued follow-up is recommended.
--- NOTE | 2020-12-02 13:36 | P.PN ---
Subjective Progress Note Date: 12/02/20 Principal diagnosis: Status post off-pump CABG 3 postoperative day # #5 This is a 80-year-old male patient of Dr. Yuliya Ortiz, with past history of hypertension, hyperlipidemia, persistent atrial flutter/atrial fibrillation, obstructive sleep apnea intolerant to CPAP, morbid obesity, osteoarthritis, urethral stricture requiring straight catheterization, and remote history of PMR rate syndrome. Patient was recently evaluated for episodes of shortness of breath and intermittent chest pain. He underwent a stress test which was mildly abnormal. His cardiogram revealed preserved LV systolic function. Patient had a heart catheterization which showed 75% stenosis of the left main coronary artery, 80% stenosis to the left circumflex coronary artery, and 20% stenosis of the proximal LAD, and a 30% stenosis to his mid LAD, and 10-20% stenosis of his right coronary artery. Due to the findings of the cardiac catheterization recommendation was made for cardiothoracic surgery evaluation and coronary artery bypass grafting. On 11/27/2020 patient underwent three-vessel coronary artery bypass grafting, which was done off pump, and consisting of RICE to the LAD, SVG to the diagonal, SVG to the posterior lateral distal circumflex with endovascular vein harvest and appendectomy aortic ultrasonography. Patient also had modified Dowling-Maze bilateral pulmonary vein ablation and ligation of the left atrial appendage using a 35 mm AtriCure clip. Of note patient's preop FEV1 was 2.4 to or 80% predicted, with FVC of 3.21 or 76% of predicted, with FEV1 to FVC ratio of 105% consistent with mild restriction. Patient is seen in the postoperative period in the intensive care unit, she is sedated, and intubated on mechanical ventilator, initial vent settings were assist control with a rate of 12, tidal volume 600, FiO2 100% and PEEP of 8. Postoperative blood gases showed pO2 of 310, pCO2 of 50, and pH of 7.32. Subsequently his FiO2 was dropped down to 50%, and his rate was increased to 14. He is currently on lactated Ringer's at 50 ML per hour, Diprivan is at 20 mics per kilo per minute, nitroglycerin is a 5 mics per kilo per minute, and levo fed has just been luda sed. Patient received 250 mL of Cell Saver Intra-Op, no additional blood work has been transfused, she did receive 2.5 L and crystalloids intraoperatively, currently has blood pressures are mildly low, and his urine output is in the order of 25 ML per hour, patient is going to receive additional volume in the form of 5% albumin, his PA pressure is 52/22, his CVP is 15, cardiac output is 5.5, and index is 2.5. He has one mediastinal left pleural chest tubes that are connected together, with small amount of serosanguineous output, no evidence of air leak, postoperative chest x-ray has been reviewed going diffuse scattered increased lung markings possibly related to underlying pulmonary fibrosis. Consider case with cardiothoracic surgeon who informed us that the lung biopsy has been taken intraoperatively. Patient was reevaluated today on 11/28/2020, patient is doing well, he was extuba cindy shortly after he arrived to the ICU last night. Patient is postoperative day #1. He underwent CABG with RICE to LAD, reverse saphenous vein graft to the diagonal and reverse saphenous vein graft to posterior lateral distal circumflex. Patient also had biopsy of the left upper lobe since his chest x- ray and clinical findings were consistent with possible underlying pulmonary fibrosis. Today the patient is sitting in a recliner in the intensive care unit, he was extubated at 16:29 PM. Tolerated the extubation well. Presently asymptomatic, denies any shortness of breath, patient is in sinus rhythm hemodynamically stable. And again he is on 4 L nasal cannula achieving 1250 ML with his incentive spirometer. Mediastinal and left sided pleural chest tube remained in place. On 11/29/2020 patient seen in follow-up in the intensive care unit, today is postoperative day #2, status post off-pump three-vessel coronary artery bypass grafting. Patient is doing very well, he is currently ambulating with the help of RN. Breathing comfortably, he is on 4 L of oxygen pulse ox is 94%, -7 stable, his been afebrile, hemodynamically has been stable. In sinus mechanism, his Barton-Nehemiah catheter has been removed. On lactated Ringer's at a rate of 30 ML per hour, no other drips. His breathing is nonlabored, he is working on incentive spirometer, his chest x-ray today shows a mild cardiomegaly and coarse bilateral interstitial infiltrates, there is patchy bibasilar opacities with a slight improvement, today's labs have been reviewed, white blood cell, 6.6, hemoglobin is 10.8, sodium is 1:30, the rest of the electrolytes and renal profile were within normal limits. Patient still has a mediastinal and left pleural chest tubes in place, with watery servicing this output, and there has been a total of 860 cc of output from the 2 chest tubes in the last 24 hours. The catheter is in place, patient is making 40-45 ML per hour. No altered mentation, his pain is fairly well controlled. No nausea vomiting or diarrhea, patient is tolerating oral intake. On 11/30/2020 patient seen in follow-up in intensive care unit, today's postoperative day #3, status post off-pump three-vessel coronary artery bypass grafting. Patient is doing very well, breathing comfortably, currently on 4 L of oxygen pulse ox of 96%, hemodynamically stable. He is not on any IV fluids right now. His been working on incentive spirometer. His left pleural chest tube remains in place, his mediastinal chest tube has been removed, today's chest x-ray has been reviewed showing diffuse increased lung markings. Today's labs have been reviewed, his white count is 6.3, hemoglobin is 11.2, sodium is 132, the rest of electrolytes and renal profile were within normal limits. Yesterday she received a dose of IV Lasix, and patient has produced 2.9 L and urine output over the last 24 hours, and he is in -1.5 L net fluid balance over the last 24 hours. Overall breathing comfortably, denies any specific complaints. His pain is fairly well-controlled. His surgical incisions are clean dry and intact, sternum stable. He has been tolerating ambulation. Reevaluated today on 12/01/2020, patient is now postoperative day #4. Patient is doing well, relatively asymptomatic, he is being considered for possible discharge home today. Chest x-ray is basically about the same, continues to show interstitial lung disease, underlying interstitial edema is not entirely ruled out but felt to be less likely. CBC today is relatively normal.Normal renal profile is normal Reevaluated in 10/30/2020, patient is postoperative day #5, patient is doing great, he is being discharged home today. Patient denies any specific complaints, however considering his marginal oxygenation and his IPF, patient will be discharged home on oxygen. Objective - Vital Signs Vital signs: Vital Signs Temp 98.3 F 12/02/20 08:00 Pulse 82 12/02/20 08:15 Resp 14 12/02/20 08:00 BP 133/56 12/02/20 08:00 Pulse Ox 95 12/02/20 08:00 Intake & Output 12/01/20 12/02/20 12/02/20 18:59 06:59 18:59 Intake Total 222 200 Output Total 1500 300 0 Balance -1500 -78 200 Weight 101.423 kg Intake: Oral 222 200 Output: Urine 1500 300 0 Other: Voiding Method Self-Catheterization Self-Catheterization Self-Catheterization # Voids 0 0 # Bowel Movements 1 ABP, PAP, CO, CI - Last Documented Arterial Blood Pressure 87/58 Pulmonary Artery Pressure 41/21 Cardiac Output 4.5 Cardiac Index 2.1 - Exam Physical Exam: Revealed 80-year-old white male in no distress, on 2 L nasal cannula with O2 sat showed 95%. Head: Atraumatic, normocephalic. HEENT:[Neck is supple.] [No neck masses.] [No thyromegaly.] [No JVD.] Chest: [Symmetrical chest expansion, crackles at the bases, no rhonchi no wheezes. Cardiac Exam: [Normal S1 and S2, no S3 gallop, no murmur.] Abdomen: [Soft, nontender, no megaly, no rebound, no guarding, normal bowel sounds.] Extremities: [No clubbing, no edema, no cyanosis.] Neurological Exam: [No focal neurologic deficit.] Alert and oriented 3. Psychiatric: Normal mood affect and normal mental status examination - Labs CBC & Chem 7: 12/02/20 04:23 12/02/20 04:23 Labs: Abnormal Lab Results - Last 24 Hours (Table) 12/01/20 12/01/20 12/02/20 Range/Units 16:38 20:33 04:23 RBC 3.81 L (4.30-5.90) m/uL Hgb 12.0 L (13.0-17.5) gm/dL Hct 35.1 L (39.0-53.0) % Sodium (137-145) mmol/L Glucose (74-99) mg/dL POC Glucose (mg/dL) 102 H 116 H (75-99) mg/dL 08/07/21 Range/Units 04:23 RBC (4.30-5.90) m/uL Hgb (13.0-17.5) gm/dL Hct (39.0-53.0) % Sodium 135 L (137-145) mmol/L Glucose 104 H (74-99) mg/dL POC Glucose (mg/dL) (75-99) mg/dL Assessment and Plan Assessment: Impression: Status post CABG, postoperative day #5 idiopathic pulmonary fibrosis, biopsy proven Benign essential hypertension Chronic atrial fibrillation Obstructive sleep apnea syndrome Remote smoking history quit 25 years ago. Remote history of Guillain-Quinteros. Recommendation: Continue aspirin and Plavix and statin as well as beta blockers. Agree with discharge planning for today. Follow-up on outpatient basis. Time with Patient: Less than 30
[2020-12-02] MEDS ORDERED: APIXABAN 5 MG TAB PO SCH (21:00)
[2020-12-03] MEDS ORDERED: ASPIRIN 81 MG PO SCH (09:00)
--- NOTE | 2020-12-04 12:41 | CDI ---
Documentation Clarification Form Date: 12/04/20 From: Deborah Ramesh Admit Date: 11/27/2020 05:46:00 AM Patient Name: Buddy Lancaster Visit Number: [id number] Discharge Date: 12/02/2020 11:24:00 AM ATTENTION: The Clinical Documentation Specialists (CDI) and [facility] Coding Staff appreciate your assistance in clarifying documentation. Please respond to the clarification below the line at the bottom and electronically sign. The CDI & [facility] Coding staff will review the response and follow-up if needed. Please note: Queries are made part of the Legal Health Record. If you have any questions, please contact the author of this message via ITS. Dr. Constantine Clarke, Atrial Flutter is documented in H&P, consults, op report, PNs & DS. Additional clarification regarding the type of Atrial Flutter is requested. History/Risk factors: CAD, HTN, HLD, persistent atrial fibrillation, MAGGI, OA, hx of smoking Clinical Indicators: In atrial flutter at time of surgery. Modified Dowling maze bilateral pulmonary vein ablation and ligation of left atrial appendage with AtriCure clip, followed by electrical cardioversion. Please clarify the type of Atrial Flutter, if known: [x ] Typical/Type I [ ] Atypical/Type II [ ] Other, please specify [ ] Unable to determine MTDD
== END 2020-12-02 11:24 | disposition home health service (06) | DRG 235 ==
LOC: 2ORMAIN 05:46 → 2SICU 12:52
PROVIDERS: ADMIT Thoracic Surgery (Cardiothoracic Vascular Surgery); ATTEND Thoracic Surgery (Cardiothoracic Vascular Surgery)
PROC: 02L70CK Occlusion of Left Atrial Appendage with Extraluminal Device, Open Approach (ICD-10-PCS; principal; 2020-11-27 08:00)
PROC: 025S0ZZ Destruction of Right Pulmonary Vein, Open Approach (ICD-10-PCS; principal; 2020-11-27 08:00)
PROC: 5A2204Z Restoration of Cardiac Rhythm, Single (ICD-10-PCS; principal; 2020-11-27 08:00)
PROC: 0BBG0ZX Excision of Left Upper Lung Lobe, Open Approach, Diagnostic (ICD-10-PCS; principal; 2020-11-27 08:00)
PROC: B24BZZ4 Ultrasonography of Heart with Aorta, Transesophageal (ICD-10-PCS; principal; 2020-11-27 08:00)
PROC: 021109W Bypass Coronary Artery, Two Arteries from Aorta with Autologous Venous Tissue, Open Approach (ICD-10-PCS; principal; 2020-11-27 08:00)
PROC: 06BQ4ZZ Excision of Left Saphenous Vein, Percutaneous Endoscopic Approach (ICD-10-PCS; principal; 2020-11-27 08:00)
PROC: 02100Z9 Bypass Coronary Artery, One Artery from Left Internal Mammary, Open Approach (ICD-10-PCS; principal; 2020-11-27 08:00)
PROC: 025T0ZZ Destruction of Left Pulmonary Vein, Open Approach (ICD-10-PCS; principal; 2020-11-27 08:00)
PROC: 5A09457 Assistance with Respiratory Ventilation, 24-96 Consecutive Hours, Continuous Positive Airway Pressure (ICD-10-PCS; 2020-11-27 08:00)
DX: I25.10 Atherosclerotic heart disease of native coronary artery without angina pectoris (principal); J96.01 Acute respiratory failure with hypoxia; I48.19 Other persistent atrial fibrillation; D62 Acute posthemorrhagic anemia; J90 Pleural effusion, not elsewhere classified; I48.3 Typical atrial flutter; J44.9 Chronic obstructive pulmonary disease, unspecified; J84.112 Idiopathic pulmonary fibrosis; E66.01 Morbid (severe) obesity due to excess calories; I11.9 Hypertensive heart disease without heart failure; D69.59 Other secondary thrombocytopenia; J98.4 Other disorders of lung; I07.1 Rheumatic tricuspid insufficiency; E78.5 Hyperlipidemia, unspecified; E78.00 Pure hypercholesterolemia, unspecified; G47.33 Obstructive sleep apnea (adult) (pediatric); N35.919 Unspecified urethral stricture, male, unspecified site; K59.00 Constipation, unspecified; I44.0 Atrioventricular block, first degree; N42.9 Disorder of prostate, unspecified; F10.11 Alcohol abuse, in remission; Z68.31 Body mass index [BMI] 31.0-31.9, adult; M19.90 Unspecified osteoarthritis, unspecified site; Z91.19 Patient's noncompliance with other medical treatment and regimen; Z79.01 Long term (current) use of anticoagulants; Z79.82 Long term (current) use of aspirin; Z79.2 Long term (current) use of antibiotics; Z79.899 Other long term (current) drug therapy; Z87.891 Personal history of nicotine dependence; Z86.19 Personal history of other infectious and parasitic diseases; Z87.01 Personal history of pneumonia (recurrent); Z87.19 Personal history of other diseases of the digestive system; Z90.89 Acquired absence of other organs; Z98.42 Cataract extraction status, left eye; Z98.41 Cataract extraction status, right eye; Z87.2 Personal history of diseases of the skin and subcutaneous tissue; Z86.010 Personal history of colon polyps; Z98.890 Other specified postprocedural states; Z71.3 Dietary counseling and surveillance; Z88.1 Allergy status to other antibiotic agents; Z88.2 Allergy status to sulfonamides; Z88.8 Allergy status to other drugs, medicaments and biological substances; Z80.0 Family history of malignant neoplasm of digestive organs; Z82.0 Family history of epilepsy and other diseases of the nervous system
CPT/HCPCS: 71045; 71046; 80048; 80053; 82330; 82805; 83735; 85025; 85027; 85520; 85610; 85730; 86850; 86891; 86900; 86901; 86920; 87102; 87116; 87206; 88307; 94002; 94640; 94660

== ENCOUNTER 2022-03-19 09:31 | Day surgery (SDC) | payer MEDICARE, OTHER ==
[2022-03-15 16:22] VITALS: BMI 31.4
[~2022-03-19 09:31] MED LIST changes: -ALBUMIN HUMAN 25% 50 ML IV ONE; -ASPIRIN 325 MG TAB PO ONE; -ATORVASTATIN 10 MG TAB PO ONE; -CALCIUM CHLORIDE 100 MG/ML 10 ML SYRINGE IV ONE; -CARDIOPLEGIC SOLN (K+ 16 MEQ/L 1,000 ML with SODIUM BICARB (1 MEQ/ML) 20 ML, LIDOCAINE ... PERFUSION ONE; -CHLORHEXIDINE GLUCONATE 15 ML CUP MUCOUS MEM ONE; -CLEVIDIPINE BUTYRATE 25 MG in EMPTY BAG 1 BAG IV ONE; -HEPARIN SODIUM 1,000 UN/ML (10ML VL) IV ONE; -HEPARIN SODIUM,PORCINE 5,000 UNIT in SODIUM CHLORIDE 0.9% 500 ML 500 ML IV ONE; -INSULIN REGULAR 100 UNIT in SODIUM CHLORIDE 0.9% 100 ML IV ONE; -MAGNESIUM SULFATE MG 500 MG/ML IV ONE; -MANNITOL 25% 12.5 GM/50 ML VIAL IV ONE; -MIDAZOLAM 2 MG/2 ML VIAL IV PRN; -NITROGLYCERIN-D5W PMX 25 MG/250 ML BTL IV ONE; -NITROGLYCERIN-D5W PMX 50 MG in DEXTROSE/WATER 1 250ML.BAG IV ONE; -NOREPINEPHRINE 4 MG in SODIUM CHLORIDE 0.9% 250 ML IV ONE; -PAPAVERINE 360 MG in SODIUM CHLORIDE 0.9% 90 ML IV ONE; -PHENYLEPHRINE 10 MG/ML VIAL IV ONE; -PHENYLEPHRINE 40 MG in SODIUM CHLORIDE 0.9% 250 ML IV ONE; -PROTAMINE SULFATE 10 MG/ML 25 ML VIAL IV ONE; -PROTAMINE SULFATE 250 MG in EMPTY BAG 1 BAG IV ONE; -SODIUM BICARB 8.4% 50 ML SYR (1 MEQ/ML) IV ONE; +SODIUM CHLORIDE 0.9% 1,000 ML IV SCH; -TRANEXAMIC ACID 2,000 MG in SODIUM CHLORIDE 0.9% 80 ML IV ONE; -ceFAZolin 1,000 MG in SODIUM CHLORIDE 0.9% IRRIGATIO 1,000 ML IRRIGATION ONE; -propofoL 1,000 MG/100 ML VIAL IV ONE
[2022-03-19] MEDS ORDERED: SODIUM CHLORIDE 0.9% 500 ML 500 ML IV ONE ×2 (10:05→11:05)
[2022-03-19 10:09] VITALS: RESP 16; TEMP 97.8
[2022-03-19 10:24] LABS: African American GFR (CKD) >90 (>60 ml/min/1.73 sqM); Anion Gap 8 mmol/L; Blood Urea Nitrogen 19 mg/dL (9-20); Calcium 9.3 mg/dL (8.4-10.2); Carbon Dioxide 24 mmol/L (22-30); Chloride 107 mmol/L (98-107); Glucose 107 mg/dL (74-99); Non-African American GFR(CKD) 81 (>60 ml/min/1.73 sqM); Potassium 4.4 mmol/L (3.5-5.1); Sodium 139 mmol/L (137-145)
[2022-03-19] MEDS ORDERED: PROPOFOL 10 MG/ML 20 ML VIAL IV ONE (11:05)
--- NOTE | 2022-03-19 11:16 | P.HPCAR ---
History of Present Illness This is Dr. Schwartz dictating an H/P on this patient The patient was interviewed and examined IMPRESSION / ASSESSMENT: Persistent atrial flutter with a very slow ventricular response Increasing shortness of breath and fatigue Underlying sick sinus syndrome overnight and bradycardia Coronary artery disease status post coronary artery bypass surgery PLAN: Proceed with electrical cardioversion Observe for bradycardia following cardioversion Reassess symptoms If there is an improvement in his symptoms of shortness of breath and fatigue then definitive treatment with radiofrequency ablation for atrial flutter should be considered in the future Especially there is a recurrence HPI Patient complains of shortness of breath tiredness and fatigue which has been progressive He has persistent atrial flutter with a slow ventricular response ROS: No fever chills or rigors, no cough, phlegm or expectoration, no nausea, vomiting or diarrhea, no hematuria, dysuria, no musculoskeletal complaints, no strokes or seizures, no skin lesions. EXAMINATION: 155/68 mmHg pulse rate in the 60s afebrile Breath sounds are reduced bilaterally Heart sounds irregular No lower extremity edema No JVD REVIEW OF LABS, ECG & MEDICAL DATA Sodium 139, potassium 4.4 BUN 19 and creatinine 0.87 Physical Exam Vitals: Vital Signs Temp Pulse Resp BP Pulse Ox 03/19/22 10:06 97.8 F 60 16 155/68 95 Intake and Output 03/18/22 03/19/22 03/19/22 22:59 06:59 14:59 Intake Total 50 Balance 50 Intake: IV 50 Other: Weight 101.8 kg Past Medical History Past Medical History: Atrial Fibrillation, Atrial Flutter, Coronary Artery Disease (CAD), Chest Pain / Angina, Hyperlipidemia, Hypertension, Osteoarthritis (OA), Prostate Disorder, Sleep Apnea/CPAP/BIPAP Additional Past Medical History / Comment(s): self caths since 2009., Hx Guillan-[facility] in mid s., pulmonary fibrosis., states frequent SOB., chronic constipation, antibodies for hepatitis B., BPH, sleep apnea & gerd resolved with wt loss., states bad knee from injury in the service-[employer]., back pain., hx vertigo., See Cardiology H & P. History of Any Multi-Drug Resistant Organisms: None Reported Past Surgical History: Coronary Bypass/CABG, Hernia Repair, Tonsillectomy Additional Past Surgical History / Comment(s): Surgery for ureteral strictures. Colonoscopy with polyps removed, bilateral cataract surgery, CABG 11/2020 Past Anesthesia/Blood Transfusion Reactions: No Reported Reaction Additional Past Anesthesia/Blood Transfusion Reaction / Comment(s): . Past Psychological History: No Psychological Hx Reported Smoking Status: Former smoker Past Alcohol Use History: None Reported Additional Past Alcohol Use History / Comment(s): Quit smoking 28 years ago., hx of 1 1/2 ppd, started smoking age 19 Past Drug Use History: None Reported - Past Family History Mother Family Medical History: Cancer Additional Family Medical History / Comment(s): ? colon cancer. History of hydrocephaly with shunt placement. at age 97. Father Family Medical History: No Reported History Physical Examination Vital Signs Temp Pulse Resp BP Pulse Ox 03/19/22 10:06 97.8 F 60 16 155/68 95 Intake and Output 03/18/22 03/19/22 03/19/22 22:59 06:59 14:59 Intake Total 50 Balance 50 Intake: IV 50 Other: Weight 101.8 kg Results 03/19/22 09:50 Comprehensive Metabolic Panel 03/19/22 Range/Units 09:50 Sodium 139 (137-145) mmol/L Potassium 4.4 (3.5-5.1) mmol/L Chloride 107 (98-107) mmol/L Carbon Dioxide 24 (22-30) mmol/L BUN 19 (9-20) mg/dL Creatinine 0.87 (0.66-1.25) mg/dL Glucose 107 H (74-99) mg/dL Calcium 9.3 (8.4-10.2) mg/dL Current Medications Generic Name Dose Route Start Last Admin Trade Name Anderq PRN Reason Stop Dose Admin Sodium Chloride 1,000 mls @ 20 mls/hr 03/19/22 05:39 Saline 0.9% IV 04/18/22 05:40 .Q24H ELIDA Lactated Ringer's 1,000 mls @ 20 mls/hr 03/19/22 05:39 Lactated Ringers IV 04/18/22 05:40 .Q24H ELIDA Intake and Output 03/18/22 03/19/22 03/19/22 22:59 06:59 14:59 Intake Total 50 Balance 50 Intake: IV 50 Other: Weight 101.8 kg Patient Weight 03/20/22 06:59 Weight 101.8 kg 03/19/22 09:50
--- NOTE | 2022-03-19 11:24 | P.PRLE ---
RE: Buddy Lancaster Dear Yuliyachino Goodwin underwent electrical cardioversion for symptomatic atrial flutter which is persistent and associated with significant bradycardia I have recommended in atrial flutter and him for many many years but for some reason the patient did not want to go ahead with Since he was symptomatic with shortness of breath at proceed with an electrical cardioversion He was successfully cardio with sinus rhythm and he did not have any postconversion pauses nor did he have any significant bradycardia Therefore I would recommend of atrial flutter ablation and continuation of anticoagulation This is his best option for avoiding permanent pacing Maintaining sinus rhythm has the best chance of improving his quality of life Thank you for entrusting me with the care of the patient Warm regards Sincerely Iván Schwartz
--- NOTE | 2022-03-19 11:53 | P.EPPROC ---
- EP Procedure Note Electrophysiology Procedure Note: Diagnosis Typical atrial flutter, symptomatic Procedure: Electrical cardioversion Patient underwent successful electrical cardioversion with a 200 J biphasic shock in the AP configuration to sinus rhythm Heart rate in the 60s No postconversion pause, no significant bradycardia postprocedure Plan Continue anticoagulation Continue antihypertensive therapy Continue rosuvastatin 20 mg daily Postprocedure 12-lead EKG shows sinus mechanism with a prolonged IA interval almost 400 ms Suggest Atrial flutter ablation to maintain sinus rhythm Patient was already had a Maze procedure intraoperatively during bypass surgery Subsequently permanent pacing with left bundle pacing
[2022-03-19 13:26] VITALS: BP 109/62; PULSE 67
== END 2022-03-19 13:08 | disposition home or self-care (01) ==
LOC: CATHCVL 09:31
PROVIDERS: ATTEND Internal Medicine Clinical Cardiac Electrophysiology
DX: I48.0 Paroxysmal atrial fibrillation (principal); I48.3 Typical atrial flutter; I49.5 Sick sinus syndrome; I25.119 Atherosclerotic heart disease of native coronary artery with unspecified angina pectoris; Z95.1 Presence of aortocoronary bypass graft; I10 Essential (primary) hypertension; E78.5 Hyperlipidemia, unspecified; M19.90 Unspecified osteoarthritis, unspecified site; G47.30 Sleep apnea, unspecified; Z99.89 Dependence on other enabling machines and devices; N42.89 Other specified disorders of prostate; K21.9 Gastro-esophageal reflux disease without esophagitis; J84.10 Pulmonary fibrosis, unspecified; Z86.69 Personal history of other diseases of the nervous system and sense organs; Z98.890 Other specified postprocedural states; Z87.891 Personal history of nicotine dependence; Z80.0 Family history of malignant neoplasm of digestive organs
CPT/HCPCS: 92960; 80048; 84443; J2704

== ENCOUNTER → 2022-04-29 | Outpatient (CLI) | payer MEDICARE, OTHER ==
[2022-04-30 07:39] LABS: HGB 14.4 gm/dL (13.0-17.5); MCHC 32.7 g/dL (31.0-37.0); MCV 94.8 fL (80.0-100.0); Mean Platelet Volume 10.8; Platelet Count 221 k/uL (150-450); RBC 4.64 m/uL (4.30-5.90); RDW 12.9 % (11.5-15.5); WBC 5.6 k/uL (3.8-10.6)
== END | disposition home or self-care (01) ==
LOC: LABPAT 15:24
PROVIDERS: ATTEND Internal Medicine Clinical Cardiac Electrophysiology
DX: Z01.812 Encounter for preprocedural laboratory examination (principal); I48.3 Typical atrial flutter
CPT/HCPCS: 80051; 82565; 84520; 85027

== ENCOUNTER 2022-05-09 10:05 | Day surgery (SDC) | payer MEDICARE, OTHER ==
[2022-05-07 14:32] VITALS: BMI 30.8
[~2022-05-09 10:05] MED LIST changes: +DEXAMETHASONE SOD PHOSPHATE 4 MG/ML 1 ML VIAL IV ONE; +HYDROmorphone 0.5 MG/0.5 ML SYRINGE IVP PRN; -LACTATED RINGERS 1,000 ML IV SCH; +LIDOCAINE 1% (10MG/ML) FOR IV START INTRADERMA PRN; +ONDANSETRON 4 MG/2 ML VIAL IVP ONE; -SODIUM CHLORIDE 0.9% 1,000 ML IV SCH
[2022-05-09] MEDS ORDERED: SODIUM CHLORIDE 0.9% 1,000 ML IV ONE (10:12)
[2022-05-09 10:46] LABS: African American GFR (CKD) >90 (>60 ml/min/1.73 sqM); Anion Gap 9 mmol/L; Blood Urea Nitrogen 17 mg/dL (9-20); Calcium 9.4 mg/dL (8.4-10.2); Carbon Dioxide 24 mmol/L (22-30); Chloride 107 mmol/L (98-107); Glucose 110 mg/dL (74-99); Non-African American GFR(CKD) 81 (>60 ml/min/1.73 sqM); Potassium 4.7 mmol/L (3.5-5.1); Sodium 140 mmol/L (137-145)
[2022-05-09] MEDS ORDERED: SUCCINYLCHOLINE CHLORIDE 200 MG/10 ML VIAL IV ONE (11:58)
[2022-05-09] MEDS ORDERED: PROPOFOL 10 MG/ML 20 ML VIAL IV ONE (11:58)
[2022-05-09] MEDS ORDERED: ROCURONIUM 10 MG/ML (5 ML VIAL) IV ONE (11:58)
[2022-05-09] MEDS ORDERED: MIDAZOLAM 2 MG/2 ML VIAL ONE (11:58)
[2022-05-09] MEDS ORDERED: LIDOCAINE 4% LTA KIT (4 ML) TOPICAL ONE (11:58)
[2022-05-09] MEDS ORDERED: ePHEDrine 50 MG/ML 1 ML VIAL ONE (11:58)
[2022-05-09] MEDS ORDERED: PHENYLEPHRINE-0.9% NACL SYG 1,000 MCG/10 ML SYRINGE ONE (11:58)
[2022-05-09] MEDS ORDERED: GLYCOPYRROLATE 0.2 MG/ML 2 ML VIAL ONE (11:58)
[2022-05-09] MEDS ORDERED: ISOPROTERENOL 250 MCG/1.25 ML SYR IV ONE (11:58)
[2022-05-09] MEDS ORDERED: fentaNYL (PF) 50 MCG/ML 2 ML AMP ONE (11:58)
[2022-05-09] MEDS ORDERED: NEOSTIGMINE 1 MG/ML 10 ML VIAL ONE (11:58)
[2022-05-09] MEDS ORDERED: LIDOCAINE 1% INJ 10MG/ML (30 ML VIAL-PF) SQ ONE (12:50)
[2022-05-09] MEDS ORDERED: HEPARIN SODIUM (1,000 UNIT/ML) 1,000 UNIT in SODIUM CHLORIDE 0.9% 1,000 ML IRRIGATION ONE (12:50)
[2022-05-09] MEDS ORDERED: ACETAMINOPHEN TAB 325 MG TAB PO PRN (14:34)
--- NOTE | 2022-05-09 14:45 | P.EPPROC ---
- EP Procedure Note Electrophysiology Procedure Note: Diagnosis Typical atrial flutter with a very slow ventricular response Symptomatic Procedure Successful ablation for typical atrial flutter with complete bidirectional block across the cavo tricuspid isthmus Abnormal AV node function with a prolonged SD interval at baseline SD interval Details Patient was brought to the EP lab in a fasting state. Written informed consent was obtained prior to the procedure. General anesthesia provided Left and right groins prepped and draped as a protocol. Venous sheaths placed in both groins Catheters placed in the high right atrium His bundle area right ventricle coronary sinus Mapping and ablation catheter placed intracardiac echo catheter placed Long sheath chloride Baseline measurements Sinus cycle length 1175 ms, SD interval 270 ms, QRS 127 and QT 459 ms AH 166 and HV 46 ms Sinus recovery times at 600, 504 ms 1215, 1091 and 1470 ms AV node Wenckebach block in the baseline state 750 ms On Isuprel AV node Wenckebach block improved from 10 ms No atrial fibrillation induced on Isuprel with straight pacing Intracardiac echo used to define the cavo tricuspid isthmus No left atrial appendage thrombus He is had coronary artery bypass graft but he still has a small left atrial appendage stump RF ablation was performed along the cavo tricuspid isthmus Complete heart block. Bidirectional block confirmed with differential pacing across the line Venous sheaths removed. Vascade closure device applied Patient will procedure well without any acute complications Plan continue ELIQUIS
--- NOTE | 2022-05-09 14:48 | P.EPPROC ---
- EP Procedure Note Electrophysiology Procedure Note: Loop monitor implant Primary physicians: Dr. Ortiz Sprayer Operator: Dr. Schwartz Indication: Bradycardia, prolonged TX interval Patient was brought to the EP lab in a fasting state. Written informed consent was obtained prior to the procedure. The left pectoral area was prepped and draped per protocol. Intravenous antibiotic was administered preoperatively. A subcutaneous Loop monitor was implanted successfully and the wound was closed per protocol. The device was programmed to detect significant javier- arrhythmic and tachy-arrhythmic events, per protocol. Device and programming details: Syncope and bradycardia protocol programmed Patient under general anesthesia
--- NOTE | 2022-05-09 14:51 | P.PRLE ---
RE: Buddy Lancaster Dear Yuliya Chapman underwent successful ablation for atrial flutter During sinus rhythm, his heart rates are reasonably normal without any significant bradycardia He does have a prolonged PA interval at baseline and ranges between 270-300 ms In atrial flutter he had severe bradycardia down to the 20s but in sinus rhythm his heart rates are typically above 50 beats a minute I did implant loop monitor and if we see any evidence for significant bradycardia we will proceed with permanent pacemaker implantation Thank you for entrusting me with the care of the patient Warm regards Sincerely Iván Schwartz
[2022-05-09] MEDS ORDERED: SODIUM CHLORIDE 0.9% 500 ML 500 ML IV ONE (15:10)
[2022-05-09] MEDS: LACTATED RINGERS 1,000 ML IV SCH (16:37)
[2022-05-09] MEDS: SODIUM CHLORIDE 0.9% 1,000 ML IV SCH ×2 (16:38→20:00)
[2022-05-09] MEDS: APIXABAN 5 MG TAB PO SCH ×2 (19:47→19:50)
[2022-05-09 22:22] VITALS: RESP 16
[2022-05-10] MEDS: LACTATED RINGERS 1,000 ML IV SCH (03:57)
--- NOTE | 2022-05-10 08:01 | P.DS ---
Providers Attending physician: Iván Schwartz Primary care physician: [facility] Course: Patient is doing well. No chest discomfort dizziness lightheadedness On examination heart sounds are normal breath sounds are clear no rhonchi no crackles Groins of healed well Normal blood pressure Normal heart rates No murmurs no gallops no rub No hematoma Impression Typical atrial flutter with severe bradycardia During sinus rhythm heart rate 7 the normal range Baseline Tea GA interval of 320 ms Status post typical atrial flutter ablation successful with confirmed bidirectional block Status post implantation of a loop monitor Plan Discharge home later today Full activities after 3 days, keep incision dry on the chest for about a week Continue anticoagulation lifelong with ELIQUIS Continue antihypertensive therapy and rosuvastatin Follow-up in a week Patient Condition at Discharge: Stable Plan - Discharge Summary Discharge Rx Participant: Yes New Discharge Prescriptions: Continue RX: L.acidoph,Paracasei, B.lactis [Probiotic] 1 cap PO BID RX: Cholecalciferol [Vitamin D3 (25 Mcg = 1000 Iu)] 9,000 unit PO DAILY RX: Ascorbic Acid [Vitamin C] 500 mg PO DAILY RX: Aspirin [Adult Low Dose Aspirin EC] 81 mg PO DAILY RX: Apixaban [Eliquis] 5 mg PO BID #60 tab RX: Zinc Gluconate [Zinc] 25 mg PO BID Vitamin A (Unknown Dose) 1 dose PO DAILY RX: Cranberry Fruit Extract [Cranberry] 4 capsule PO BID RX: Meclizine [Antivert] 25 mg PO DIRECTED PRN PRN Reason: Vertigo RX: Etodolac [Lodine] 400 mg PO DAILY PRN PRN Reason: Pain RX: Vardenafil HCl [Levitra] 15 mg PO DIRECTED Nf-Magnesium Glycinate 400 mg PO DAILY RX: Rosuvastatin [Crestor] 20 mg PO HS RX: Candesartan [Atacand] 16 mg PO HS Naltrexone (Unknown Dose) 3 mg PO DAILY RX: Multivitamins, Thera [Multivitamin (formulary)] 1 tab PO DAILY RX: Triamterene-Hctz 37.5-25Mg [Dyazide 37.5-25 Capsule] 1 cap PO DAILY RX: Nitroglycerin Sl Tabs [Nitrostat] 0.4 mg SUBLINGUAL Q5M PRN PRN Reason: Chest Pain Vitamin K (Unknown Dose) 1 dose PO DAILY RX: Vitamin B Complex 1 each PO DAILY RX: Potassium Chloride [Klor-Con 10 ER] 10 meq PO DIRECTED Discontinued RX: Ubidecarenone [Co Q-10] 100 mg PO DAILY RX: Ivermectin 3 mg PO Q7D Kelp 1 dose PO BID RX: resveratroL [Resveratrol] 100 mg PO DAILY Quercetin 500 mg PO DAILY Nf-Nac Supplement 500 mg PO DAILY Discharge Medication List RX: Ascorbic Acid [Vitamin C] 500 mg PO DAILY 01/07/20 [History] RX: Aspirin [Adult Low Dose Aspirin EC] 81 mg PO DAILY 01/07/20 [History] RX: Cholecalciferol [Vitamin D3 (25 Mcg = 1000 Iu)] 9,000 unit PO DAILY 01/07/20 [History] RX: L.acidoph,Paracasei, B.lactis [Probiotic] 1 cap PO BID 01/07/20 [History] RX: Apixaban [Eliquis] 5 mg PO BID #60 tab 01/09/20 [Rx] Naltrexone (Unknown Dose) 3 mg PO DAILY 03/15/22 [History] RX: Candesartan [Atacand] 16 mg PO HS 03/15/22 [History] RX: Cranberry Fruit Extract [Cranberry] 4 capsule PO BID 03/15/22 [History] RX: Meclizine [Antivert] 25 mg PO DIRECTED PRN 03/15/22 [History] RX: Multivitamins, Thera [Multivitamin (formulary)] 1 tab PO DAILY 03/15/22 [History] RX: Nitroglycerin Sl Tabs [Nitrostat] 0.4 mg SUBLINGUAL Q5M PRN 03/15/22 [History] RX: Potassium Chloride [Klor-Con 10 ER] 10 meq PO DIRECTED 03/15/22 [History] RX: Rosuvastatin [Crestor] 20 mg PO HS 03/15/22 [History] RX: Triamterene-Hctz 37.5-25Mg [Dyazide 37.5-25 Capsule] 1 cap PO DAILY 03/15/22 [History] RX: Vitamin B Complex 1 each PO DAILY 03/15/22 [History] RX: Zinc Gluconate [Zinc] 25 mg PO BID 03/15/22 [History] Vitamin A (Unknown Dose) 1 dose PO DAILY 03/15/22 [History] Vitamin K (Unknown Dose) 1 dose PO DAILY 03/15/22 [History] Nf-Magnesium Glycinate 400 mg PO DAILY 05/07/22 [History] RX: Etodolac [Lodine] 400 mg PO DAILY PRN 05/07/22 [History] RX: Vardenafil HCl [Levitra] 15 mg PO DIRECTED 05/07/22 [History] Follow up Appointment(s)/Referral(s): Iván Schwartz MD [STAFF PHYSICIAN] - 1 Week Activity/Diet/Wound Care/Special Instructions: Post EP study - Ablation instructions 1. Keep access sites dry for 2 days. 2. No heavy lifting or straining for 2 days. 3. Avoid bending the hips repeatedly for 2 days. 4. You may go up and down stairs slowly Call if the following is noted 1. Bleeding, increasing swelling or pain at the access sites. 2. Increasing chest discomfort, especially upon taking a deep breath. 3. Increasing shortness of breath, at rest or with exertion. 4. Undue cough / phlegm 5. Difficulty or pain while swallowing. 6. Pain or change in color in the extremities. 7. Fever, chills, rigors. 8. Increasing headache or neurologic symptoms. 9. Dizziness, fainting, palpitations
[2022-05-10] MEDS: APIXABAN 5 MG TAB PO SCH (08:26)
[2022-05-10 09:12] VITALS: BP 116/62; PULSE 70; TEMP 97.9
== END 2022-05-10 10:18 | disposition home or self-care (01) ==
LOC: CATHEP 10:05 → 6NMEDSUR 14:55 → CATHEP 05-10 10:18
PROVIDERS: ATTEND Internal Medicine Clinical Cardiac Electrophysiology
DX: I48.0 Paroxysmal atrial fibrillation (principal); I48.3 Typical atrial flutter; I49.5 Sick sinus syndrome; I25.10 Atherosclerotic heart disease of native coronary artery without angina pectoris; Z95.5 Presence of coronary angioplasty implant and graft; Z79.01 Long term (current) use of anticoagulants; Z79.82 Long term (current) use of aspirin; Z88.2 Allergy status to sulfonamides; Z88.1 Allergy status to other antibiotic agents; Z88.8 Allergy status to other drugs, medicaments and biological substances; Z79.899 Other long term (current) drug therapy
CPT/HCPCS: 93623; 93662; 93653; 80048; C1894; C1769 ×2; C1760; C1730; C1759; C1893; C1764; C1732; J2250; J0330; J2710; J2001; J3010; J1644; J2370; J2704

== ENCOUNTER → 2022-11-14 | Outpatient (CLI) | payer MEDICARE, OTHER ==
[2022-11-14 20:16] LABS: HCT 45.6 % (39.6-50.0); HGB 14.9 d/dL (12.0-15.0); MCH 30.6 pg (27.0-32.0); MCHC 32.7 d/dL (32.0-37.0); MCV 93.6 FL (80.0-97.0); Mean Platelet Volume 11.5 FL (9.5-12.2); NRBC Per 100 WBC 0 X 10*3/uL (0.00-0.01); Platelet Count 193 X 10*3/uL (140-440); RBC 4.87 X 10*6/uL (4.40-5.60); WBC 6.65 X 10*3/uL (4.50-10.00)
[2022-11-14 20:17] LABS: Blood Urea Nitrogen 18.9 mg/dL (9.0-27.0); Carbon Dioxide 24.7 mmol/L (21.6-31.8); Chloride 108 mmol/L (96-109); Potassium 4.8 mmol/L (3.5-5.5); Sodium 142 mmol/L (135-145)
== END | disposition home or self-care (01) ==
LOC: LABPAT 14:08
PROVIDERS: ATTEND Internal Medicine Clinical Cardiac Electrophysiology
DX: Z01.812 Encounter for preprocedural laboratory examination (principal); I49.5 Sick sinus syndrome; J45.909 Unspecified asthma, uncomplicated; R53.83 Other fatigue
CPT/HCPCS: 80051; 82533; 82565; 82626; 84520; 85027

== ENCOUNTER 2022-11-21 12:22 | Day surgery (SDC) | payer MEDICARE, OTHER ==
[2022-11-18 13:55] VITALS: BMI 30.1
[~2022-11-21 12:22] MED LIST changes: -DEXAMETHASONE SOD PHOSPHATE 4 MG/ML 1 ML VIAL IV ONE; -HYDROmorphone 0.5 MG/0.5 ML SYRINGE IVP PRN; -LIDOCAINE 1% (10MG/ML) FOR IV START INTRADERMA PRN; -ONDANSETRON 4 MG/2 ML VIAL IVP ONE; +SODIUM CHLORIDE 0.9% 1,000 ML IV SCH; +ceFAZolin 1 GM in SODIUM CHLORIDE 0.9% IRRIG BTL 250 ML IRRIGATION PRN
[2022-11-21] MEDS ORDERED: VANCOMYCIN 1,500 MG in SODIUM CHLORIDE 0.9% 500 ML 500 ML IVPB ONE (15:23)
[2022-11-21] MEDS ORDERED: LIDOCAINE 1% INJ 10MG/ML (20 ML MDV) ONE (15:54)
[2022-11-21] MEDS ORDERED: PROPOFOL 10 MG/ML 20 ML VIAL IV ONE (15:55)
[2022-11-21] MEDS ORDERED: fentaNYL (PF) 50 MCG/ML 2 ML AMP ONE (15:55)
[2022-11-21] MEDS ORDERED: MIDAZOLAM 2 MG/2 ML VIAL ONE (15:55)
[2022-11-21] MEDS ORDERED: IOPAMIDOL-370 100ML BTL INJ ONE (16:08)
[2022-11-21] MEDS ORDERED: LIDOCAINE 1% INJ 10MG/ML (30 ML VIAL-PF) SQ ONE (16:40)
[2022-11-21] MEDS ORDERED: ACETAMINOPHEN TAB 325 MG TAB PO PRN (19:23)
[2022-11-21] MEDS ORDERED: ACETAMINOPHEN IV (For NPO) 1,000 MG in EMPTY BAG 1 BAG IVPB ONE (19:23)
--- NOTE | 2022-11-21 19:31 | P.EPPROC ---
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 Written informed consent was obtained prior to the procedure. Conscious sedation provided. IV antibiotics administered. Local anesthesia administered. A 4 cm incision made in the pectoral area. Subfascial pocket made. Venous accesses obtained Venous sheaths placed. Leads placed in the right heart Atrial lead position the right atrial appendage. 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, [employer] MRI model #2272 Dual-chamber pacemaker device connected to the leads and placed in the subfascial pocket Patient tolerated the procedure well without acute complications Pacemaker programming DDDR with VIP mode on Extended procedure duration This is a very difficult and long case Significant right atrial enlargement Significant RV enlargement multiple different sheaths were used It took greater than 2.5 hours to position the left bundle lead
--- NOTE | 2022-11-21 19:38 | P.EPPROC ---
- EP Procedure Note Electrophysiology Procedure Note: Dear Yuliya Goodwin underwent dual-chamber pacemaker implantation with a left bundle pacing lead in the right ventricle His paced QRS is narrow with a right bundle branch block morphology consistent with preferential left bundle branch pacing The purpose is to prevent pacemaker mediated cardio myopathy Since she has an abnormal AV node, RV pacing would have resulted in progressive cardio myopathy over the years Thank you for entrusting me with the care of the patient Warm regards Sincerely Iván Schwartz
[2022-11-21] MEDS: LACTATED RINGERS 1,000 ML IV SCH (20:40)
[2022-11-22 00:22] LABS: Glucose,Whole Blood 96 mg/dL (70-110)
[2022-11-22] MEDS ORDERED: SODIUM CHLORIDE 0.9% 500 ML 500 ML IV ONE (00:35)
[2022-11-22] MEDS ORDERED: ETODOLAC 400 MG TAB PO PRN (03:11)
[2022-11-22] MEDS ORDERED: MECLIZINE 25 MG TAB PO PRN (03:11)
[2022-11-22] MEDS ORDERED: VARDENAFIL HCL PO SCH (03:15)
--- NOTE | 2022-11-22 07:41 | P.DS ---
Providers Attending physician: Iván Schwartz Primary care physician: [facility] Course: Patient complains of being dizzy when he moves his neck and when he sits up Last and his blood pressure was low. 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, symptomatic No triggering factors Status post dual-chamber pacemaker implantation conduction system pacing and left bundle pacing Coronary artery disease status post coronary artery bypass grafting Maze procedure during coronary artery bypass grafting Atrial flutter ablation in the past Plan Continue anticoagulation Start metoprolol now Toprol-XL 25 mg by mouth daily Maximize beta blockers Discharge home today Patient Condition at Discharge: Stable Plan - Discharge Summary Discharge Rx Participant: No New Discharge Prescriptions: No Action RX: L.acidoph,Paracasei, B.lactis [Probiotic] 1 cap PO BID RX: Cholecalciferol [Vitamin D3 (25 Mcg = 1000 Iu)] 9,000 unit PO DAILY RX: Ascorbic Acid [Vitamin C] 500 mg PO DAILY RX: Aspirin [Adult Low Dose Aspirin EC] 81 mg PO DAILY RX: Apixaban [Eliquis] 5 mg PO BID #60 tab RX: Zinc Gluconate [Zinc] 25 mg PO BID Vitamin A (Unknown Dose) 1 dose PO DAILY RX: Cranberry Fruit Extract [Cranberry] 4 capsule PO BID RX: Meclizine [Antivert] 25 mg PO DIRECTED PRN PRN Reason: Vertigo RX: Etodolac [Lodine] 400 mg PO DAILY PRN PRN Reason: Pain RX: Vardenafil HCl [Levitra] 15 mg PO DIRECTED Nf-Magnesium Glycinate 400 mg PO DAILY Acetylcysteine [Nac] 600 mg PO TID RX: Rosuvastatin [Crestor] 20 mg PO HS RX: Candesartan [Atacand] 16 mg PO HS Naltrexone (Unknown Dose) 3 mg PO DAILY RX: Multivitamins, Thera [Multivitamin (formulary)] 1 tab PO DAILY RX: Triamterene-Hctz 37.5-25Mg [Dyazide 37.5-25 Capsule] 1 cap PO DAILY RX: Nitroglycerin Sl Tabs [Nitrostat] 0.4 mg SUBLINGUAL Q5M PRN PRN Reason: Chest Pain Vitamin K (Unknown Dose) 1 dose PO DAILY RX: Vitamin B Complex 1 each PO DAILY RX: Potassium Chloride [Klor-Con 10 ER] 10 meq PO DIRECTED Discharge Medication List RX: Ascorbic Acid [Vitamin C] 500 mg PO DAILY 01/07/20 [History] RX: Aspirin [Adult Low Dose Aspirin EC] 81 mg PO DAILY 01/07/20 [History] RX: Cholecalciferol [Vitamin D3 (25 Mcg = 1000 Iu)] 9,000 unit PO DAILY 01/07/20 [History] RX: L.acidoph,Paracasei, B.lactis [Probiotic] 1 cap PO BID 01/07/20 [History] RX: Apixaban [Eliquis] 5 mg PO BID #60 tab 01/09/20 [Rx] Naltrexone (Unknown Dose) 3 mg PO DAILY 03/15/22 [History] RX: Candesartan [Atacand] 16 mg PO HS 03/15/22 [History] RX: Cranberry Fruit Extract [Cranberry] 4 capsule PO BID 03/15/22 [History] RX: Meclizine [Antivert] 25 mg PO DIRECTED PRN 03/15/22 [History] RX: Multivitamins, Thera [Multivitamin (formulary)] 1 tab PO DAILY 03/15/22 [History] RX: Nitroglycerin Sl Tabs [Nitrostat] 0.4 mg SUBLINGUAL Q5M PRN 03/15/22 [History] RX: Potassium Chloride [Klor-Con 10 ER] 10 meq PO DIRECTED 03/15/22 [History] RX: Rosuvastatin [Crestor] 20 mg PO HS 03/15/22 [History] RX: Triamterene-Hctz 37.5-25Mg [Dyazide 37.5-25 Capsule] 1 cap PO DAILY 03/15/22 [History] RX: Vitamin B Complex 1 each PO DAILY 03/15/22 [History] RX: Zinc Gluconate [Zinc] 25 mg PO BID 03/15/22 [History] Vitamin A (Unknown Dose) 1 dose PO DAILY 03/15/22 [History] Vitamin K (Unknown Dose) 1 dose PO DAILY 03/15/22 [History] Nf-Magnesium Glycinate 400 mg PO DAILY 05/07/22 [History] RX: Etodolac [Lodine] 400 mg PO DAILY PRN 05/07/22 [History] RX: Vardenafil HCl [Levitra] 15 mg PO DIRECTED 05/07/22 [History] Acetylcysteine [Nac] 600 mg PO TID 11/18/22 [History] Follow up Appointment(s)/Referral(s): Iván Schwartz MD [STAFF PHYSICIAN] - 1 Week (Device Clinic is Dec 02 @ 2pm (Dr. Schwartz office). They will check pacemaker & also your incision.) Activity/Diet/Wound Care/Special Instructions: PATIENT EDUCATION MATERIAL Instructions following a heart rhythm device implant. 1. Keep dressing DRY for 5 DAYS. You may cover the area with Saran or Cling Wrap, prior to a shower. 2. The dressing will be removed in the Device [facility] at [facility]. Absorbable sutures were used to close the wound. 3. Avoid raising the left arm above the shoulder level. 4 week restriction 4. Avoid arm movements, like backscratching, rubbing the head, or pulling on a cord. 4 weeks restriction 5. Gentle range of motion movements of the shoulder, closest to the incision should be performed to avoid a frozen shoulder. (Pendulum exercises of the shoulder) 6. The opposite arm may be used freely. 7. Avoid driving for 7 days. 8. Avoid activities such as golfing, swimming, weed whacking, lifting more than 10 pounds weight, bowling, gymnastics and weight training/lifting. (6 weeks restriction) 9. Activities such as wood chopping with an axe, pull-ups in the gymnasium, power lifting, arc-welding, being close to home induction cooktops will always be a problem. 10. Arm sling is only a reminder not to raise the arm above the head. You do not need to keep the arm completely immobilized. Your free to move the arm and use it and for normal activities. In case of any problems, please call [facility], Monico Desouza, @ [phone], Attention: Device Clinic Device clinic follow-up in 5 days Follow-up with primary aviation safety inspector in 2-3 months
[2022-11-22] MEDS: LACTATED RINGERS 1,000 ML IV SCH (08:00)
--- NOTE | 2022-11-22 08:27 | XR ---
EXAMINATION TYPE: XR chest 2V DATE OF EXAM: 11/22/2022 COMPARISON: 12/02/2020, 01/25/2021 HISTORY: 82-year-old male lead placement check TECHNIQUE: Frontal and lateral views FINDINGS: Loop recorder device along the left heart margin. Median sternotomy wires are post CABG clips. A left anterior chest wall pacemaker generator is present with right atrial and right ventricular leads. Hyperinflation along with diffuse interstitial and reticular change. The opacity is more confluent an d patchy at the right base probably reflecting scarring and fibrosis. No pleural effusion. No appreci able pneumothorax. IMPRESSION: 1. Left anterior chest wall pacemaker generator with right atrial right ventricular leads. 2. COPD and suspected superimposed pulmonary fibrosis. Extensive interstitial changes throughout and patchy changes at the right base appear relatively similar. Correlate clinically to exclude any under lying acute infiltrate.
[2022-11-22] MEDS ORDERED: LACTOBACILLUS ACIDOPHILUS/PECT 1 EACH CAPSULE PO SCH (09:00)
[2022-11-22] MEDS ORDERED: NON FORMULARY DRUG (Vitamin B Complex [Vitamin B Complex] 1 EACH Capsule) PO SCH (09:00)
[2022-11-22] MEDS ORDERED: MULTIVITAMINS, THERA 1 EACH TAB PO SCH (09:00)
[2022-11-22] MEDS ORDERED: NON FORMULARY DRUG (Cranberry Fruit Extract [Cranberry] 200 MG Capsule) PO SCH (09:00)
[2022-11-22] MEDS ORDERED: MAGNESIUM OXIDE 400 MG TAB PO SCH (09:00)
[2022-11-22] MEDS ORDERED: CHOLECALCIFEROL 125 MCG (5000 IU) TABLET PO SCH (09:00)
[2022-11-22] MEDS ORDERED: TRIAMTERENE-HCTZ 37.5-25MG 1 EACH CAP PO SCH (09:00)
[2022-11-22] MEDS ORDERED: ZINC SULFATE 220 MG CAP PO SCH (09:00)
[2022-11-22] MEDS ORDERED: APIXABAN 5 MG TAB PO SCH (09:00)
[2022-11-22] MEDS ORDERED: NON FORMULARY DRUG (Acetylcysteine [Nac] 600 MG Tablet) PO SCH (09:00)
[2022-11-22] MEDS ORDERED: ASPIRIN 81 MG PO SCH (09:00)
[2022-11-22 09:05] VITALS: BP 152/75; PULSE 50; RESP 16; TEMP 97.7
[2022-11-22] MEDS ORDERED: ATORVASTATIN 40 MG TAB PO SCH (21:00)
[2022-11-22] MEDS ORDERED: LOSARTAN 50 MG TAB PO SCH (21:00)
== END 2022-11-22 13:16 | disposition home or self-care (01) ==
LOC: CATHEP 12:22 → 6NMEDSUR 17:08 → CATHEP 11-22 13:16
PROVIDERS: ATTEND Internal Medicine Clinical Cardiac Electrophysiology
DX: I49.5 Sick sinus syndrome (principal); I45.10 Unspecified right bundle-branch block; I10 Essential (primary) hypertension; E78.5 Hyperlipidemia, unspecified; Z79.899 Other long term (current) drug therapy
CPT/HCPCS: 33208; 71046; C1769 ×2; C1730; C1887; C1892; C1898; C1785; J2250; J3370; J0690 ×2; J2001; J3010; J0131; J2704; Q9967

== ENCOUNTER → 2024-03-23 | Outpatient (CLI) | payer MEDICARE, OTHER | END | disposition home or self-care (01) | LOC: LABWHC1 15:04 | PROVIDERS: ATTEND Urology | DX: R97.20 Elevated prostate specific antigen [PSA] (principal) | CPT/HCPCS: 36415; 84153 ==

== ENCOUNTER → 2024-05-11 | Outpatient (CLI) | payer MEDICARE, OTHER | END | disposition home or self-care (01) | LOC: LABWHC1 13:26 | PROVIDERS: ATTEND Urology | DX: R97.20 Elevated prostate specific antigen [PSA] (principal) | CPT/HCPCS: 36415; 84153 ==

== ENCOUNTER → 2024-08-06 | Outpatient (CLI) | payer MEDICARE, OTHER | END | disposition home or self-care (01) | LOC: LABWHC1 14:46 | PROVIDERS: ATTEND Urology | DX: R97.20 Elevated prostate specific antigen [PSA] (principal) | CPT/HCPCS: 36415; 84153 ==